=== PATIENT | male | born 1945 | race Caucasian/White ===

== ENCOUNTER → 2017-06-07 06:32 | Outpatient (CLI) | payer MEDICARE, OTHER, SELFPAY ==
--- NOTE | 2017-06-07 12:20 | STRESSREP ---
Stress Test Report Pharmacologic myocardial perfusion stress test. 72-year-old man with a history of chest pain. Medications lisinopril amlodipine atenolol simvastatin. Stress protocol: Resting EKG demonstrates normal sinus rhythm with a rate of 72 bpm normal intervals and noted resting blood pressure is 140/76 mmHg. 0.4 mg regadenoson infused per usual protocol followed Intravenous saline flush injection. Continuous EKG monitoring was performed. The maximum heart rate attained was 97 bpm which was 65% of the maximum predicted work heart rate. The maximum workload was 1 metabolic equivalent. At rest there were no ST or T-wave changes noted suggest abnormal flow reserve at peak infusion no ST or T-wave changes were noted suggest abnormal flow reserve. The resting blood pressure is 140/76 with a final and peak blood pressure 158/70 mmHg. Myocardial perfusion protocol. 14.9 mCi of technetium 99m sestamibi was injected at rest. 0.4 mg regadenoson was infused per usual protocol. Peak infusion 44.6 mCi of technetium 99m sestamibi was injected. Stress images were obtained. Stress and rest images were reconstructed in the short axis vertical long and horizontal long axis. Gated images were also obtained. Perfusion SPECT analysis: Review of the stress images demonstrate normal perfusion in all areas of the myocardium. The resting images similarly demonstrate normal perfusion in all areas of the myocardium. No areas of reversibility are noted suggest ischemia no previous infarct is noted. Gated SPECT analysis. Next The gated ejection fraction is noted with 58% with no wall motion abnormalities present. Conclusion: Normal pharmacologic myocardial perfusion stress test with no evidence of ischemia. Preserved ejection fraction.
== END ==
PROVIDERS: Family Provider Family Medicine; PCP Family Medicine; Visit Provider Nurse Practitioner Family
DX: R07.9 Chest pain, unspecified (principal)
CPT/HCPCS: 78452; 93017; A9500; A4216; J2785

== ENCOUNTER → 2017-11-08 09:38 | Outpatient (CLI) | payer MEDICARE, OTHER, SELFPAY ==
--- NOTE | 2017-11-08 09:39 | ECHOCS_ITS ---
Reason For Study: Aortic Stenosis Procedure This was a 2D Doppler, Color Flow transthoracic echocardiogram. The study was technically difficult. Exam performed in department. Left Ventricle Moderate concentric left ventricular hypertrophy. The estimated ejection fraction is 65 %. No regional wall motion abnormalities noted. Right Ventricle Normal size and thickness. Normal systolic function. Atria The left atrium is severely enlarged. Normal right atrium. Normal atrial septum. Mitral Valve The mitral valve is structurally normal. No prolapse or stenosis seen. Aortic Valve Trisinus/trileaflet aortic valve. Severe diffuse aortic valve thickening. Moderate focal aortic valve thickening. Severe restriction of the aortic valve. Severe aortic stenosis. Peak aortic valve gradient 79 mmHg. Mean aortic valve gradient 32 mmHg. Calculated aortic valve area (continuity equation) is 0.91 cm2. Pulmonic Valve Normal pulmonic valve. Great Vessels Normal aortic root. Mild atherosclerosis of the aortic arch. Normal inferior vena cava. Inferior vena cava collapse with sniff. Pericardium/Pleural No pericardial effusion. Medication 22 gauge I.V. with prn adaptor inserted into right arm. Diluted definity 3ml given slow IV push to enhance endocardial definition. MMode/2D Measurements & Calculations LVIDd: 4.9 cm IVSd: 1.4 cm LVOT diam: 2.4 cm LVIDs: 2.9 cm LVPWd: 1.2 cm LVOT area: 4.5 cm2 FS: 41.8 % Ao root diam: 3.7 cm LAV(MOD-bp): 82.2 ml Aortic Valve Planimetry: 1.0 cm2 LAV(MOD-bp) Indexed: 31.9 ml/m2 LAV(MOD-sp2): 68.3 ml LAV(MOD-sp4): 95.6 ml LA A4 area: 26.7 cm2 Time Measurements MV dec time: 0.26 sec Doppler Measurements & Calculations MV E max shreyas: 70.3 cm/sec Lat Peak E' Shreyas: 9.8 cm/sec Med Peak E' Shreyas: 7.6 cm/sec MV A max shreyas: 84.0 cm/sec E/E' lat: 7.2 E/E' med: 9.3 MV E/A: 0.84 MV V2 max: 101.1 cm/sec MV P1/2t max shreyas: 99.2 cm/sec Ao V2 max: 443.7 cm/sec MV max P.1 mmHg MV P1/2t: 58.5 msec Ao max P.7 mmHg MV V2 mean: 53.4 cm/sec MV dec slope: 496.3 cm/sec2 Ao V2 mean: 246.0 cm/sec MV mean P.4 mmHg MVA(P1/2t): 3.8 cm2 Ao mean P.5 mmHg MV V2 VTI: 28.0 cm Ao V2 VTI: 99.1 cm MVA(VTI): 3.7 cm2 CHRISTOFER(I,D): 1.0 cm2 CHRISTOFER(V,D): 0.91 cm2 LV V1 max: 89.3 cm/sec SV(LVOT): 102.2 ml PA V2 max: 126.2 cm/sec LV V1 max P.2 mmHg LV V1 mean P.9 mmHg LV V1 mean: 66.1 cm/sec LV V1 VTI: 22.7 cm Interpretation Summary Moderate concentric left ventricular hypertrophy. The estimated ejection fraction is 65 %. The left atrium is severely enlarged. Severe restriction of the aortic valve. Peak aortic valve gradient 79 mmHg. Mean aortic valve gradient 32 mmHg. Calculated aortic valve area (continuity equation) is 0.91 cm2. Comapred to echo report dated 10/12/2016, LV function has remained the same, but aortic stenosis is now severe. Pt will need DOUGLAS and left and right heart cath for AVR. The study was technically difficult. Contrast injection was performed. Ordering Physician: Leonardo Dial Referring Physician: Leonardo Dial Performed By: Usman Guevara RCS
== END ==
PROVIDERS: Family Provider Family Medicine; PCP Family Medicine; Visit Provider Internal Medicine Cardiovascular Disease
DX: G47.33 Obstructive sleep apnea (adult) (pediatric) (principal)
CPT/HCPCS: 93306; Q9957; A4216; C8929

== ENCOUNTER → 2017-11-12 08:32 | Outpatient (CLI) | payer MEDICARE, OTHER, SELFPAY ==
--- NOTE | 2017-11-12 08:35 | RAD_ITS ---
STUDY: X-RAY CHEST REASON FOR EXAM: Male, 72 years old. Shortness of breath on exertion. Pre heart catheter. TECHNIQUE: PA and lateral views of the chest. COMPARISON: None. FINDINGS: There is hyperinflation of the lungs, which may reflect obstructive lung disease. There is no demonstrated pleural abnormality. Normal size heart. Normal mediastinum and nicholas. Normal visualized pulmonary arteries. There is atherosclerotic calcification of the aortic arch. There are diffuse degenerative changes of the visualized spine. There is a prominent thoracolumbar kyphosis, and mild reversal of the mid thoracic kyphosis. Normal visualized ribs, clavicles, and shoulders. There is no demonstrated abnormality of the visualized soft tissue structures of the upper abdomen. RAD/Chest PA and Lateral IMPRESSION: Hyperexpanded, suggesting obstructive pulmonary disease. No acute infiltrate or CHF. Electronically Signed: Trino Durbin MD at 19:07 EDT , Service support ,
[2017-11-12 09:19] LABS: Absolute Lymphocyte Count 2.11 X10^3/ul (0.83-4.51); Absolute Neutrophil Count 8.2 X10^3/uL (2.0-7.7); Basophil# 0.03 X10^3/uL; Basophil% 0.3 % (0-1); Eosinophil# 0.12 X10^3/uL; Eosinophils% 1.1 % (0-5); Hematocrit 43.2 % (40-54); Lymphocyte # 2.11 X10^3/ul (4.0); Lymphocyte % 18.6 % (19-41); Mean Corp Hgb Conc 32.4 g/gl (32-36); Mean Corpuscular Volume 92.5 fL (80-94); Mean Platelet Vol. 10.6 fl (6.2-12.0); Monocyte# 0.87 X10^3/uL; Monocyte% 7.7 % (0-10); Neutrophil # 8.21 X10^3/uL (2.7-7.7); Platelet Count 242 K/mm3 (150-450); RBC Distribution Width CV 15.3 % (11.6-14.6); RBC Distribution Width SD 50.5 fl (35.1-43.9); Red Blood Count 4.67 M/mm3 (4.6-6.2); White Blood Count 11.4 K/mm3 (4.4-11.0)
[2017-11-12 09:25] LABS: POSITIVE COUNT NO; POSITIVE DIFFERENTIAL NO; POSITIVE MORPHOLOGY NO
[2017-11-12 09:28] LABS: International Normalized Ratio 1.1; Prothrombin Time (Protime)PT. 14.3 SECONDS (11.7-14.9)
[2017-11-12 09:29] LABS: Partial Thromboplast Time 42.8 Seconds (24.1-36.2)
[2017-11-12 09:52] LABS: Anion Gap 9 (5-15); BUN 19 mg/dL (7-18); BUN/Creat Ratio 16.5 RATIO (10-20); Calcium,Total 9.6 mg/dL (8.5-10.1); Chloride 104 mmol/L (98-107); Creatinine, Serum 1.15 mg/dL (0.70-1.30); EST Glomerular Filtration Rate 66 mL/min (>60); Est Glom Filt Rate - Afr Amer 80 mL/min (>60); Glucose 121 mg/dL (74-106); Potassium 4.4 mmol/L (3.5-5.1); Sodium Level 140 mmol/L (136-145)
== END ==
PROVIDERS: Family Provider Family Medicine; PCP Family Medicine; Visit Provider Internal Medicine Cardiovascular Disease
DX: E03.9 Hypothyroidism, unspecified (principal); E78.5 Hyperlipidemia, unspecified; E11.65 Type 2 diabetes mellitus with hyperglycemia; E66.9 Obesity, unspecified; I10 Essential (primary) hypertension; I35.0 Nonrheumatic aortic (valve) stenosis; G47.33 Obstructive sleep apnea (adult) (pediatric)
CPT/HCPCS: 36415; 71046; 80048; 85025; 85610; 85730

== ENCOUNTER 2017-11-27 13:59 | Outpatient (RCR) | payer MEDICARE, OTHER, SELFPAY | END 2017-12-10 23:59 | LOC: DC 13:59 | PROVIDERS: Family Provider Family Medicine; PCP Family Medicine; Visit Provider Family Medicine | DX: Z71.3 Dietary counseling and surveillance (principal) | CPT/HCPCS: G0108 ==

== ENCOUNTER → 2017-11-29 08:39 | Outpatient (CLI) | payer MEDICARE, OTHER, SELFPAY ==
[2017-11-28 09:17] VITALS: BMI 42.8
--- NOTE | 2017-11-29 08:41 | ECHOTEE_ITS ---
Reason For Study: VALVE REPLACEMENT Medication Performed a rapid injection of agitated mix of 9 cc saline and 1cc air to assess for atrial septal defect. DOUGLAS probe passed without difficulty. No complications were noted. [id number] gargled and swallowed. Cetacaine Topical [place] given X2 orally. Versed 2 mg given slow IVP. Fentanyl 25 mcg given slow IVP. Negative bubble study. Left Ventricle Mild concentric left ventricular hypertrophy. The estimated ejection fraction is 65 %. No regional wall motion abnormalities noted. Right Ventricle Normal size and thickness. The right ventricular wall motion is normal. Atria Normal atrial septum. Bubble contrast study negative for right to left interatrial shunt. Normal left atrium. No thrombus is detected in the left atrial appendage. Normal right atrium. Mitral Valve The mitral valve is structurally normal. No prolapse or stenosis seen. Trivial mitral valve insufficiency. Tricuspid Valve Normal tricuspid valve. Trivial tricuspid valve insufficiency. Right ventricular systolic pressure estimated to be 18 mmHg. Aortic Valve Trisinus/trileaflet aortic valve. Moderate diffuse aortic valve thickening. Moderate focal aortic valve calcification. Moderate restriction of the aortic valve. Moderate aortic stenosis. Peak aortic valve gradient 60 mmHg. Mean aortic valve gradient 33 mmHg. Calculated aortic valve area (continuity equation) is 1.2 cm2. Pulmonic Valve Normal pulmonic valve. Vessels Normal aortic root. Mild atherosclerosis of the aortic arch. The pulmonary artery is normal size. Pulmonary venous flow normal. Doppler Measurements & Calculations MV V2 max: 95.3 cm/sec Ao V2 max: 386.2 cm/sec MV max P.7 mmHg Ao V2 mean: 267.6 cm/sec MV V2 mean: 58.1 cm/sec Ao V2 VTI: 92.6 cm MV mean P.6 mmHg MV V2 VTI: 24.8 cm Interpretation Summary Mild concentric left ventricular hypertrophy. The estimated ejection fraction is 65 %. Bubble contrast study negative for right to left interatrial shunt. Trivial tricuspid valve insufficiency. Right ventricular systolic pressure estimated to be 18 mmHg. Trivial mitral valve insufficiency. Moderate restriction of the aortic valve. Immobile right coronary cusp. Moderate to severe aortic stenosis. Peak aortic valve gradient 60 mmHg. Mean aortic valve gradient 33 mmHg. Calculated aortic valve area (continuity equation) is 1.2 cm2 by planimetery. Ordering Physician: Stormy Montaño/Leonardo Dial Referring Physician: ROBB SANCHES Performed By: Alka Calvert RDCS, RVT ??? Reason For Study: VALVE REPLACEMENT Interpretation Summary Mild concentric left ventricular hypertrophy. The estimated ejection fraction is 65 %. Bubble contrast study negative for right to left interatrial shunt. Trivial tricuspid valve insufficiency. Right ventricular systolic pressure estimated to be 18 mmHg. Trivial mitral valve insufficiency. Moderate restriction of the aortic valve. Immobile right coronary cusp. Moderate to severe aortic stenosis. Peak aortic valve gradient 60 mmHg. Mean aortic valve gradient 33 mmHg. Calculated aortic valve area (continuity equation) is 1.2 cm2 by planimetery. Ordering Physician: Stormy Montaño/Leonardo Dial Referring Physician: ROBB SANCHES Performed By: Alka Calvert RDCS, RVT
--- NOTE | 2017-11-29 11:48 | CL.D_ITS ---
Patient Name: DMITRY SILVA Study Date: 11/29/2017 Performing: Leonardo Dial MD Ht: 72.04 inches 183 cm : 1945 Wt: 315.26 lbs 143 kg Age: 72 Gender: male BSA: 2.59 PROCEDURE(S) PERFORMED AO09-BWA/LHC/COR/LV CLINICAL PROFILE AND INDICATIONS Indications: Valvular Disease, Suspected CAD Heart Failure: None Stress/Imaging Stress/Image Study Performed: No Angina Classification Anginal Classification w/in 2 Weeks: No symptoms CAD Presentations: Other: Dyspnea on exertion, aortic stenosis. Comorbidities/Risk Factors: Hypertension Dyslipidemia Diabetes Mellitus: Diabetes Therapy: Oral CONCLUSIONS Normal coronary arteries Normal Left Ventricular systolic function Normal LV size, wall motion,and systolic function Aortic Valve Stenosis- Moderate Right heart pressures - Normal RECOMMENDATIONS Surgery consult for aortic valvular disease of TAVR vs open replacement. Pt has evidence of severe aortic stenosis by transthoracic echo, and positional dizziness as well as dyspnea on exertion and increasing fatigue. Pt has associated peripheral neuropathy and back pain edmond taylor complete evaluation somewhat problematic. DESCRIPTION OF PROCEDURE The patient arrived to the procedure lab. The risks and benefits of the procedure as well as a full d escription of our services here and current unavailability of surgical backup were fully explained to the patient and/or their significant other prior to the catheterization. The Timeout was completed, verifying the correct patient and procedure. The patient's procedural site was prepped and draped in the usual fashion. Local anesthetic was given subcutaneously to right groin region with Lidocaine 2%. Using a modified Seldinger technique, arterial access was obtained via the right femoral artery, a 4 Fr sheath was inserted Venous access was obtained via the right femoral vein, a 7Fr sheath was insert ed. A 7Fr thermal dilution catheter was inserted and right heart pressures were recorded, it was then advanced to PA position for cardiac outputs. Thermal dilution cardiac outputs were then recorded. O2 saturations were then obtained. Left Ventriculography was performed in MORAN projection using a 4 Fr. Pigtail catheter. Simultaneous pressures were then recorded. The Thermal dilution catheter was then r emoved. LV to AO pullback pressures were then recorded. Left Coronary Artery selective angiography wa s performed in multiple views using a 4 Fr. JL5 catheter. Left Coronary Artery selective angiography was performed in multiple views using a 4 Fr. JL4 catheter. Right Coronary Artery selective angiograp hy was then performed in multiple views using a 4 Fr. 3DRC catheter.The arterial sheath was pulled an d manual compression applied until hemostasis is achieved. CORONARY ANGIOGRAPHY DOMINANCE: Left Dominant LEFT HEART ASSESSMENT Left Ventricular Ejection Fraction: by LV Gram 65 % Normal LV wall motion Normal Left Ventricular systolic function Normal Left Ventricular systolic function Normal Left Ventricular End Diastolic Pressure RIGHT HEART ASSESSMENT Thermal CO: 7.5 Thermal CI: 2.9 Van CO: 7.24 Van CI: 2.8 PW: 12/9 8 PA: 29/4 18 RV: 33/0 6 RA: 6/5 2 PVR: 107 SVR: 779 Aortic Valve Area: 1.50 Aortic Valve Index: 0.58 Aortic Valve Mean Gradient: 28.3 LEFT MAIN: Angiographically normal LEFT ANTERIOR DECENDING ARTERY: Angiographically normal CIRCUMFLEX ARTERY: Angiographically normal RIGHT CORONARY ARTERY: Angiographically normal VALVE FINDINGS: Aortic Valve Stenosis - moderate by gradient, CHRISTOFER=1.50 cm2 COMPLICATIONS No Complications PROCEDURE MEDICATIONS Versed 2 mg IV Fentanyl 25 mcg IV Oxygen: 2 L/min via nasal cannula SUMMARY OF HEMODYNAMIC DATA Time AIR REST ECG 09:04:09 ECG 10:58:36 RA 6/5 (2) SV 11:12:24 RA 6/4 (3) 11:12:41 RV 33/0, 6 11:13:17 PW /9 (8) PV 11:13:50 PA 29/4 (18) PA 11:14:04 LV 158/-12, 10 11:20:41 LV 157/-13, 9 11:20:49 LV 160/-10, 13 11:21:10 PW 19/14 (11) 11:21:10 LV 161/-13, 9 11:21:36 PW 6/6 (4) 11:21:36 LV 161/-9, 12 11:22:02 RV 25/-2, 4 11:22:02 LV 156/-7, 10 11:23:22 LV 156/-8, 12 11:23:29 LVp 153/-9, 11 11:23:35 AOp 112/56 (81) 11:23:40 AO 92/59 (75) SA 11:25:48 Valve Area (c P-P/ms Time AIR REST Aortic 1.50 28.3 mn/322 ms 41.0 pk/322 ms 11:23:35 Type SV CO (l/m) CI (l/m/ HR Time AIR REST Thermal 104.20 7.50 2.90 72 09:04:09 Van 100.60 7.24 2.80 72 09:04:09 Label % O2 Pres/Loc Time AIR REST AO 93 PV 11:29:26 PA 68 PA 11:29:33 Signed By Leonardo Dial MD On 11/29/2017 11:47:49 Leonardo Dial MD
[2017-11-29 12:00] LABS: Base Excess 2 mmol/L (-2 to +2); Bicarbonate 26.2 mmol/L (22-26); Blood Gas Specimen Type ART; PO2 65 mmHG (75-100); SO2 93 % (95-99); Total Carbon Dioxide 27 mmol/L; pCO2 41.1 mmHg (35-45); pH 7.41 (7.35-7.45)
[2017-11-29 12:00] LABS: Blood Gas Specimen Type VEN; VBG BASE EXCESS 2 mmol/L (-1.0-3.5); VBG Bicarbonate 27 mmol/L (22-26); VBG Oxygen Content 28 mmol/L (23-33); VBG PO2 36 mmHg (25-40); VBG SO2 67 % (50-70); VBG pCO2 44.5 mmHg (41-51); VBG pH 7.39 (7.32-7.42)
[2017-11-29 12:00] LABS: Blood Gas Specimen Type VEN; VBG BASE EXCESS 2 mmol/L (-1.0-3.5); VBG Bicarbonate 27 mmol/L (22-26); VBG Oxygen Content 28 mmol/L (23-33); VBG PO2 35 mmHg (25-40); VBG SO2 68 % (50-70); VBG pCO2 41.9 mmHg (41-51); VBG pH 7.42 (7.32-7.42)
== END ==
PROVIDERS: Family Provider Family Medicine; PCP Family Medicine; Visit Provider Internal Medicine Cardiovascular Disease
DX: I35.8 Other nonrheumatic aortic valve disorders (principal); I10 Essential (primary) hypertension; E78.5 Hyperlipidemia, unspecified; E11.9 Type 2 diabetes mellitus without complications; Z95.2 Presence of prosthetic heart valve; Z79.84 Long term (current) use of oral hypoglycemic drugs; I51.7 Cardiomegaly
CPT/HCPCS: 82803; 93312; 93320; 93325; 93460; 99152; 99153; J7040; Q9967; A4216; C1751; C1769; C1894

== ENCOUNTER 2017-12-07 09:01 | Emergency (ER) | payer MEDICARE, OTHER, SELFPAY ==
[2017-12-07 09:02] VITALS: BP 148/83; PULSE 64; RESP 18; TEMP 36.6; O2SAT 95; BMI 42.5
--- NOTE | 2017-12-07 09:05 | EKG12_ITS ---
Test Reason : DIZZINESS Blood Pressure : / mmHG Vent. Rate : 063 BPM Atrial Rate : 063 BPM P-R Int : 242 ms QRS Dur : 090 ms QT Int : 392 ms P-R-T Axes : -15 042 038 degrees QTc Int : 401 ms Sinus rhythm with 1st degree A-V block Otherwise normal ECG Confirmed by CAYLA OLIVERA, MARY ([id number]), technical writer and editor ABBI SHORE ([id number]) on 12/10/2017 3:06:08 PM Referred By: LIDIA Confirmed By:MARY KULKARNI MD
--- NOTE | 2017-12-07 09:18 | CT_ITS ---
STUDY: CT BRAIN WITHOUT CONTRAST REASON FOR EXAM: Male, 72 years old. Dizziness RADIATION DOSAGE (If Supplied By Facility): CTDIvol = ( 44.99 ) mGy, DLP = ( 829.85 ) mGycm TECHNIQUE: Transaxial CT imaging of the brain was performed without administration of intravenous contrast material. Sagittal and coronal images are reformatted. Individualized dose optimization techniques were used for this CT. COMPARISON: None. FINDINGS: Normal soft tissue structures. Normal calvarium. Normal size ventricles and extra-axial spaces for the patient's age. There are areas of decreased attenuation within the white matter tracts of the supratentorial brain, consistent with microvascular disease changes. Normal basal ganglia and thalami. Normal brainstem. Normal cerebellum. There is no intracranial hemorrhage. There are no findings of an acute ischemic infarction. Normal visualized paranasal sinuses. CT/Brain/Head without Contrast IMPRESSION: Chronic involutional changes of the brain. No acute intracranial process. Electronically Signed: Micky Paiz DO at 10:29 EDT , Service support ,
--- NOTE | 2017-12-07 09:19 | RAD_ITS ---
STUDY: X-RAY CHEST REASON FOR EXAM: Male, 72 years old. Dizziness TECHNIQUE: Single AP portable view of the chest. COMPARISON: 11/12/2017. FINDINGS: The lungs are clear and expanded. There is no demonstrated pleural abnormality. Normal size heart. Normal mediastinum and nicholas. Normal visualized pulmonary arteries. Normal visualized aortic arch and descending thoracic aorta. Normal visualized thoracic spine. Normal visualized ribs, clavicles, and shoulders. There is no demonstrated abnormality of the visualized soft tissue structures of the upper abdomen. RAD/Chest 1 View IMPRESSION: No acute cardiopulmonary disease. Electronically Signed: Micky Paiz DO at 9:41 EDT , Service support ,
--- NOTE | 2017-12-07 09:20 | ED.VISSUMM ---
- ER Visit Summary Date of Service: 12/07/17 Chief Complaint: [] Lightheaded dizzy head spinning sensation buzzing History of Present Illness: The patient is a 72 M [] history of diabetes aortic stenosis reports that he has had extensive workup for his cardiac valve 1 week ago had cardiac catheter that showed normal coronary artery disease but he was told his cardiac valve was such that he should be referred to see a cardiac surgeon Cortney millan that appointment is later on the month. He indicates for the last 2 days he has had a buzzing and spinning sensation to his head that will not go away, it is associated with some movement he has had no fever no cough headache chest pain no 6 paresthesias no abdominal pain normal bowel bladder habits. His right groin cath site is intact without pain, he does indicate his had decreased p.o. intake recently because he is trying to modify his diet but he has had normal bowel bladder habits, he also indicates he recently started on on ompyrazole by ENT, sounds like reflux and that really has not changed and is concerned the on Nagi also contribute to his dizziness, in addition he thought maybe [place] which she is taking for back pain was contributing so he stopped the [place] with no improvement He has no history of stroke [place] or neurologic disorder Patient has no cardiovascular symptoms of any kind no chest pain fever cough orthopnea or PND Physical Examination: [] He is awake and alert he is in no distress sitting at the side of the bed moving his head left and right does not contribute necessarily to any sense of dizziness or spinning no nystagmus his HEENT exam is unremarkable speech is clear to understand his neck is supple the lungs are clear the heart tones were a grade 3 out of 6 murmur the abdomen is obese but soft nontender the right groin cath site is intact without pain or bleeding or fullness his backs unremarkable he is able to stand and walk he has no ataxia or nystagmus with movement or walking but he feels as if in his head is buzzing, he has no symptoms related finger to nose bilaterally and again his speech is clear and easy to understand his NIH is 0 Test Results: [] Emergency Department Course and Treatment: [] Given his age and his concerns and his history he did modify his diet recently he has had decreased p.o. intake really started on on ompyrazole was told his would require cardiac valve replacement IV fluids screening labs head CT Patient's physical exam is unchanged his NIH remains 0, he is up walking in the emergency room no difficulty, his labs EKG head CT are all generally unremarkable please see those reports we did discuss potential MRI in the emergency department MRI techs are not available discussed all the above the patient discussed the concept of a subclinical stroke or other process discussed inpatient versus outpatient management he does not wish to be admitted he wants to go home, we spoke with Dr. Vega his manager of sales communication specialist, spoke with Dr. barber his primary care for attending physician discussed all the above with them they agree the patient be discharged home to follow-up in the office with Dr. Barber the next few days return for change in symptoms and continue all his medications including his aspirin And the patient feels well he is walking around the ED with no findings or abnormalities and he wants to go home he prefers outpatient management Treatment Plan: [] Disposition: [] Home stable Impression: [] Dizziness buzzing sensation etiology unclear history of aortic stenosis diabetes high cholesterol hypertension This note was generated with Uskape dictation software. It may contain incorrect words, spelling, and punctuation that were not noted in review of the chart prior to signing ED Disposition - Plan for ED Patient: Chief Complaint: Dizziness Referrals: Diony Barber III, MD [Primary Care Provider] -
--- NOTE | 2017-12-07 09:23 | ED.DCSUM_ITS ---
- ER Visit Summary Date of Service: 12/07/17 Chief Complaint: [] Lightheaded dizzy head spinning sensation buzzing History of Present Illness: The patient is a 72 M [] history of diabetes aortic stenosis reports that he has had extensive workup for his cardiac valve 1 week ago had cardiac catheter that showed normal coronary artery disease but he was told his cardiac valve was such that he should be referred to see a cardiac surgeon Cortney millan that appointment is later on the month. He indicates for the last 2 days he has had a buzzing and spinning sensation to his head that will not go away, it is associated with some movement he has had no fever no cough headache chest pain no 6 paresthesias no abdominal pain normal bowel bladder habits. His right groin cath site is intact without pain, he does indicate his had decreased p.o. intake recently because he is trying to modify his diet but he has had normal bowel bladder habits, he also indicates he recently started on on ompyrazole by ENT, sounds like reflux and that really has not changed and is concerned the on [place] also contribute to his dizziness, in addition he thought maybe [place] which she is taking for back pain was contributing so he stopped the [place] with no improvement He has no history of stroke [place] or neurologic disorder Patient has no cardiovascular symptoms of any kind no chest pain fever cough orthopnea or PND Physical Examination: [] He is awake and alert he is in no distress sitting at the side of the bed moving his head left and right does not contribute necessarily to any sense of dizziness or spinning no nystagmus his HEENT exam is unremarkable speech is clear to understand his neck is supple the lungs are clear the heart tones were a grade 3 out of 6 murmur the abdomen is obese but soft nontender the right groin cath site is intact without pain or bleeding or fullness his backs unremarkable he is able to stand and walk he has no ataxia or nystagmus with movement or walking but he feels as if in his head is buzzing , he has no symptoms related finger to nose bilaterally and again his speech is clear and easy to understand his NIH is 0 Test Results: [] Emergency Department Course and Treatment: [] Given his age and his concerns and his history he did modify his diet recently he has had decreased p.o. intake really started on on ompyrazole was told his would require cardiac valve replacement IV fluids screening labs head CT Patient's physical exam is unchanged his NIH remains 0, he is up walking in the emergency room no difficulty, his labs EKG head CT are all generally unremarkable please see those reports we did discuss potential MRI in the emergency department MRI techs are not available discussed all the above the patient discussed the concept of a subclinical stroke or other process discussed inpatient versus outpatient management he does not wish to be admitted he wants to go home, we spoke with Dr. Vega his carpenters supervisor station chief, spoke with Dr. barber his primary care for attending physician discussed all the above with them they agree the patient be discharged home to follow-up in the office with Dr. Barber the next few days return for change in symptoms and continue all his medications including his aspirin And the patient feels well he is walking around the ED with no findings or abnormalities and he wants to go home he prefers outpatient management Treatment Plan: [] Disposition: [] Home stable Impression: [] Dizziness buzzing sensation etiology unclear history of aortic stenosis diabetes high cholesterol hypertension This note was generated with PowerCard dictation software. It may contain incorrect words, spelling, and punctuation that were not noted in review of the chart prior to signing ED Disposition - Plan for ED Patient: Chief Complaint: Dizziness Referrals: Diony Barber III, MD [Primary Care Provider] -
[2017-12-07 09:38] VITALS: BP 123/77; PULSE 64; RESP 17; O2SAT 96
[2017-12-07 09:50] LABS: Absolute Lymphocyte Count 1.54 X10^3/ul (0.83-4.51); Absolute Neutrophil Count 5.1 X10^3/uL (2.0-7.7); Basophil# 0.02 X10^3/uL; Basophil% 0.3 % (0-1); Eosinophil# 0.14 X10^3/uL; Eosinophils% 1.9 % (0-5); Hematocrit 41.4 % (40-54); Hemoglobin 13.3 g/dl (13.0-16.5); Lymphocyte # 1.54 X10^3/ul (4.0); Lymphocyte % 20.8 % (19-41); Mean Corp Hgb Conc 32.1 g/gl (32-36); Mean Corpuscular Volume 93.2 fL (80-94); Mean Platelet Vol. 10.5 fl (6.2-12.0); Monocyte# 0.61 X10^3/uL; Monocyte% 8.2 % (0-10); Neutrophil # 5.07 X10^3/uL (2.7-7.7); Neutrophil % 68.3 % (47-70); Platelet Count 226 K/mm3 (150-450); RBC Distribution Width CV 15.6 % (11.6-14.6); RBC Distribution Width SD 51.7 fl (35.1-43.9); Red Blood Count 4.44 M/mm3 (4.6-6.2); White Blood Count 7.4 K/mm3 (4.4-11.0)
[2017-12-07 10:06] LABS: Anion Gap 5 (5-15); BUN 23 mg/dL (7-18); BUN/Creat Ratio 17.8 RATIO (10-20); Calcium,Total 9.7 mg/dL (8.5-10.1); Chloride 104 mmol/L (98-107); Creatinine, Serum 1.29 mg/dL (0.70-1.30); EST Glomerular Filtration Rate 58 mL/min (>60); Est Glom Filt Rate - Afr Amer 70 mL/min (>60); Estimated Creatinine Clearance 55.98 ml/min; Glucose 112 mg/dL (74-106); Sodium Level 138 mmol/L (136-145)
[2017-12-07 10:21] LABS: POSITIVE COUNT NO; POSITIVE DIFFERENTIAL NO; POSITIVE MORPHOLOGY NO
--- NOTE | 2017-12-07 11:00 | ED.DEP ---
ED Disposition - Plan for ED Patient: Chief Complaint: Dizziness Instructions: ED Dizziness [facility] Referrals: Diony Barber III, MD [Primary Care Provider] -
[2017-12-07 11:19] VITALS: BP 112/75; PULSE 68; RESP 15; O2SAT 98
== END 2017-12-07 11:20 | disposition home or self-care (01) ==
LOC: ED 09:37
PROVIDERS: Emergency Provider Emergency Medicine; Family Provider Family Medicine; PCP Family Medicine
DX: R42 Dizziness and giddiness (principal); I35.0 Nonrheumatic aortic (valve) stenosis; E11.9 Type 2 diabetes mellitus without complications; E78.00 Pure hypercholesterolemia, unspecified; I10 Essential (primary) hypertension
CPT/HCPCS: 70450; 71045; 80048; 84484; 85025; 93005; 96360; 96361; 99283; J7040

== ENCOUNTER → 2018-01-27 10:38 | Outpatient (CLI) | payer MEDICARE, OTHER, SELFPAY ==
[2018-01-27 11:45] LABS: Amphetamine Urine VISTA NEGATIVE (<1000 ng/mL); Barbiturate Urine VISTA NEGATIVE (< 200 ng/mL); Benzodiazepine Urine VISTA NEGATIVE (< 200 ng/mL); Cocaine Urine VISTA NEGATIVE (< 300 ng/mL); Ecstacy Urine VISTA POSITIVE (< 500 ng/mL); Methadone Urine VISTA NEGATIVE (< 300 ng/mL); PCP Urine VISTA NEGATIVE (< 25 ng/mL); THC Urine VISTA NEGATIVE (< 50 ng/mL); Vista UDS pH Range 6
== END ==
PROVIDERS: Family Provider Family Medicine; PCP Family Medicine; Visit Provider Anesthesiology Pain Medicine
DX: F11.20 Opioid dependence, uncomplicated (principal)
CPT/HCPCS: 80307

== ENCOUNTER → 2018-02-24 09:47 | Outpatient (CLI) | payer MEDICARE, OTHER, SELFPAY ==
--- NOTE | 2018-02-24 09:53 | RAD_ITS ---
STUDY: X-RAY - RIGHT KNEE REASON FOR EXAM: Male, 73 years old. Knee pain. TECHNIQUE: 2 view(s) of the knee. COMPARISON: None. FINDINGS: Normal visualized distal femur. Normal visualized proximal tibia and fibula. Normal proximal tibiofibular articulation. There is mild degenerative arthrosis of the medial femorotibial compartment. There is mild degenerative arthrosis of the lateral femorotibial compartment. Normal patellofemoral articulation. The soft tissue structures are unremarkable. RAD/Knee 1 or 2 Views IMPRESSION: Degenerative changes. Electronically Signed: Azalia Rodriguez MD at 23:26 EDT Tel , Service support ,
--- NOTE | 2018-02-24 09:53 | RAD_ITS ---
STUDY: X-RAY - LEFT KNEE REASON FOR EXAM: Male, 73 years old. Knee pain. TECHNIQUE: 2 view(s) of the knee. COMPARISON: None. FINDINGS: Normal visualized distal femur. Normal visualized proximal tibia and fibula. Normal proximal tibiofibular articulation. There is mild degenerative arthrosis of the medial femorotibial compartment. Normal lateral femorotibial compartment. There is mild degenerative arthrosis of the patellofemoral articulation. The soft tissue structures are unremarkable. RAD/Knee 1 or 2 Views IMPRESSION: Degenerative changes. Electronically Signed: Azalia Rodriguez MD at 23:27 EDT Tel , Service support ,
== END ==
PROVIDERS: Family Provider Family Medicine; PCP Family Medicine; Referring Provider Anesthesiology Pain Medicine; Visit Provider Anesthesiology Pain Medicine
DX: M25.562 Pain in left knee (principal); M25.561 Pain in right knee
CPT/HCPCS: 73560

== ENCOUNTER → 2018-09-11 | Outpatient (CLI) | payer MEDICARE, OTHER, SELFPAY ==
[2018-07-04 09:39] VITALS: BMI 45.7
--- NOTE | 2018-09-11 14:08 | VDLE_ITS ---
Reason For Study: edema RIGHT LEFT GSV is normal. GSV is normal. CFV is compressible, spontaneous, phasic, CFV is compressible, spontaneous, phasic, competent and demonstrates normal competent, and demonstrates normal augmentation. augmentation. FV is compressible, spontaneous, phasic, FV is compressible, spontaneous, phasic, competent and demonstrates normal competent and demonstrates normal augmentation. augmentation. POP V is compressible, spontaneous, phasic, POP V is compressible, spontaneous, phasic, competent and demonstrates normal competent and demonstrates normal augmentation. augmentation. T/P Trunk is compressible. T/P Trunk is compressible. PTV is compressible. PTV is compressible. RT PerV is compressible. LT PerV is compressible. Procedure Exam performed in department. The exam was diagnostic. A preliminary report was called and/or faxed to H[facility]. Interpretation Summary Deep veins of the lower extremities are bilaterally patent and compressible segmentally. There is no evidence of deep vein thrombosis on either side. Valvular competence appears intact within the proximal deep venous systems bilaterally. The greater saphenous veins appear bilaterally patent and compressible segmentally. Ordering Physician: YAJAIRA Caro Performed By: Moiz Gonzales RVT
== END | disposition home or self-care (01) ==
LOC: CVS 14:02
PROVIDERS: Family Provider Family Medicine; PCP Family Medicine; Referring Provider Nurse Practitioner Family; Visit Provider Nurse Practitioner Family
DX: R60.0 Localized edema (principal); R52 Pain, unspecified; Z98.890 Other specified postprocedural states
CPT/HCPCS: 93970

== ENCOUNTER → 2018-09-18 08:52 | Outpatient (CLI) | payer MEDICARE, OTHER, SELFPAY ==
[2018-07-04 09:39] VITALS: BMI 45.7
--- NOTE | 2018-09-18 09:43 | PCM.CR.HP2 ---
CR - History & Physical - General Arrival date:: 09/18/18 Arrival time:: 09:44 Date of Referral:: 09/18/18 Date of CR Evaluation:: 09/18/18 Referring Physician: Dr. Vinny Diggs MD Primary Diagnosis: s/p TAVR - History of Present Cardiac Event Onset Date: Enter Onset Date of cardiac illnesses in Comment field below Current stable Angina Pectoris:: No Acute Myocardial Infarction within 12 months:: No Coronary Artery Bypass Graft:: No Heart valve replacement or repair:: Yes - TAVR 07/28/18 PTCA or coronary stenting:: No Heart or Heart-Lung Transplant:: No Heart Failure EF <35%:: No Type of Symptoms:: murmur Interventions with present event:: TAVR Were there any complications?: no - Medications Home Medications: Ambulatory Orders Medication Instructions Recorded Aspirin E.C. [Ecotrin] 81 mg PO DAILY@0800 06/18/13 Metformin HCl [Glucophage] 500 mg PO BID 06/18/13 Areds 1 tab PO BID 10/18/14 Multivitamins,Ther W-Minerals 1 tab PO DAILY 10/18/14 [Multivitamin With Minerals] Finasteride [Proscar] 5 mg PO DAILY 01/11/15 busPIRone [Buspar] 5 mg PO BID 01/11/15 Cholecalciferol (Vitamin D3) 1,000 unit PO DAILY 12/03/16 [Vitamin D3] Gabapentin [Neurontin] 900 mg PO TIDCM 12/03/16 lisinopril 40 mg tablet 40 mg PO DAILY #90 tab 10/04/17 simvastatin 20 mg tablet 20 mg PO QHS #90 tab 10/24/17 bupropion HCl SR 200 mg tablet,12 200 mg PO QHS tab 11/04/17 hr sustained-release bupropion HCl XL 300 mg 24 hr 300 mg PO QAM 11/04/17 tablet, extended release lactobacillus combination no.11 15 1 cap PO QDAY 11/04/17 billion cell sprinkle capsule hydrochlorothiazide 25 mg tablet 25 mg PO DAILY #90 tab 12/09/17 metoprolol succinate ER 100 mg 100 mg PO DAILY 06/09/18 tablet,extended release 24 hr levothyroxine 150 mcg tablet 150 mcg PO DAILY 06/11/18 Acetaminophen [Shake That Ache] 500 mg PO Q8H PRN PRN 09/18/18 Amlodipine Besylate 7.5 mg PO DAILY 09/18/18 Glimepiride [Amaryl] 1 mg PO DAILY 09/18/18 Hydrocodone/Acetaminophen [Graham 1 each PO BID PRN PRN 09/18/18 5-325 Tablet] Oxygen, Home [Home Oxygen] 2 lpm NASAL QHS 09/18/18 Polyethylene Glycol 3350 [Miralax] 17 gm PO DAILY PRN 09/18/18 - Allergies Allergies/Adverse Reactions: Allergies No Known Allergies Allergy (Verified 06/09/18 11:28) - Sleep Disorder Evaluation Hx of Sleep Apnea: Yes Do you snore loudly (louder than talking or can be heard through closed doors)?: Yes Do you often feel tired/ fatigued/ sleepy during daytime?: Yes Has anyone observed you stop breathing during sleep?: Yes History of Hypertension (for STOP score): Yes STOP Results: Positive Advanced Directives - Advanced Directives Power of Safety Security Officer: Yes Living Will: Yes Advance Directives Information Provided: Yes Advance Directives on File: Yes DNR Order?:: No Past Medical History - Past Medical Illness Medical History: Past Medical History (Last Reviewed 06/09/18 @ 11:03 by Evelyn Mariano) Obstructive sleep apnea (Chronic) G47.33 Nonrheumatic aortic (valve) stenosis (Chronic) I35.0 Obesity (Chronic) E66.9 Hypertension (Chronic) I10 Diabetes type 2, uncontrolled (Chronic) E11.65 Hyperlipidemia (Chronic) E78.5 Hypothyroidism (Chronic) E03.9 Peripheral autonomic neuropathy G90.9 Chest pain (Resolved) R07.9 Postural hypotension I95.1 - Past Surgical History Surgical History: Past Surgical History (Last Reviewed 06/09/18 @ 11:03 by Evelyn Mariano) History of prostate surgery Z98.890 Ankle fracture, right S82.891A Surgical History: - - ankle fracture, prostate surg. 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 Review of Systems - Review of Systems Hints: Right click = Denies ([place]ash). Left click = Reports ([place]) Review of Present Symptoms: Reports: Shortness of Breath at Rest - sometimes needs to take a deep breath., Dizziness/Lightheadedness - at times due to meds he thinks, Appetite - Normal, Appetite - Special Diet, Sleep - Normal - doesn't sleep well at night.. Denies: Shortness of Breath with Exertion, PVD, Operative Discomfort, Angina, Wound Healing, Fatigue, Heart Arrhythmia/Irregularities, Sexual Changes - Pain Is Patient Pain Free?: No Pain Location: back, other - feet neuropathy Pain Level: 10/20 - On Neurontin Previous experience dealing with pain?: has rolater to sit on for pain relief and norco Risk Factor Assessment - Chief Complaint Chief Complaint: s/p TAVR - Vital Signs Pulse Ox: 92 - Pulse Pulse Rate: 76 Pulse Rhythm: Regular - Hypertension How long have you been treated?: 20 years On medication(s)?: yes Blood Pressure Sitting - Right Arm: 140/72 Blood Pressure Sitting - Left Arm: 126/74 - Stress Stress: Recent, Long-standing - Blood Cholesterol/Lipids Total Cholesterol (mg/dL) Goal = less than 200 mg/dL: 167 HDL Cholesterol (mg/dL) Goal = less than 40 mg/dL: 45 LDL Cholesterol (mg/dL) Goal = less than 70 mg/dL: 92 Triglycerides (mg/dL) Goal = less than 150 mg/dL: 148 - Diabetes Diabetic History: Type II - 10 years, Medication Dependent Nutrition Referral for Diabetes: Yes - Obesity Height: 6 ft Weight:: 333 lb Weight in Pounds: 333.0 lbs Weight Source: Stated by Patient Body Mass Index (BMI): 45.1 Desired Body Weight: 250 Realistic Weight Goal (Loss of 1-2 lbs/week): 316 Nutritional Referral for Obesity: Yes - Physical Inactivity Physical Inactivity: None - Risk Stratification Risk Guidelines: Lowest Risk: Risk Factor for Smoking, Moderate Risk: Risk Factor for Dyslipidemia, Risk Factor for Hypertension, Highest Risk: Risk Factor for Diabetes, Risk Factor for Obesity, Risk Factor for Sedentary Lifestyle, Risk Factor for Depression - For Smoking Smoking Risk Guidelines: Smoking Low Risk: None or quit greater than 6 months ago. Smoking Moderate Risk: Smoker or quit 6 months or less ago. Smoking High Risk: Smoker - For Dyslipidemia Dyslipidemia Risk Guidelines: Low Risk: Moderate Risk: High Risk: 15-25% fat 25.1-29% fat >/= 30% fat. <7% sat fat 7-9% sat fat >9% sat fat. <150 mg chol 150-299 mg chol >/= 300 mg chol. LDL <100 LDL 100-129 LDL >/= 130. Chol/HDL ratio <5.0 Chol/HDL ratio 5.0-6.0 Chol/HDL ratio >6.0. Triglycerides <100 Triglycerides 100-149 Triglycerides >/= 150 - For Diabetes Mellitus Diabetes Risk Guidelines: Diabetes Low Risk: HgA1c <6.5% and/or FBG <120. Diabetes Moderate Risk: HgA1c 6.6-7.9% and/or FBG 120-180. Diabetes High Risk: HgA1c >/= 8% and/or FBG >180 - For Obesity/Overweight Obesity/Overweight Risk Guidelines: Obesity Low Risk: BMI <25.0. Obesity Moderate Risk: BMI 25-29.9. Obesity High Risk: BMI >/= 30.0 - For Hypertension Hypertension Risk Guidelines: Hypertension Low Risk: Systolic <120 and Diastolic <80. Hypertension Moderate Risk: Systolic 120-139 and Diastolic 80-89. Hypertension High Risk: Systolic >/= 140 and Diastolic >/= 90 - For Sedentary Lifestyle Sedentary Lifestyle Risk Guidelines: Sedentary Lifestyle Low Risk: >/= 1,500 kcal/week. Sedentary Lifestyle Moderate Risk: 700-1,499 kcal/week. Sedentary Lifestyle High Risk: < 700 kcal/week - For Depression Depression Risk Guidelines: Depression Low Risk: Not clinically depressed. Depression Moderate Risk: Mildly depressed. Depression High Risk: Clinically depressed - Family History Family History: Family History (Last Reviewed 06/09/18 @ 11:03 by Evelyn Mariano) Father Colon cancer Brother CAD (coronary artery disease) Diabetes Sister Diabetes Motivation - Motivation to Participate On a scale of 1 to 10, how prepared are you to commit to attending program?: 8
--- NOTE | 2018-09-18 09:46 | CR.ITP_ITS ---
General Information - General Information Admitting Diagnosis: s/p TAVR - Education/Goals Barriers to Learning: None, Vision Impairment - wears glasses Individual Counseling: Initial Assessment: Nicotine/Smoking, Abnormal Cholesterol Levels, High Blood Pressure, Overweight/Obesity, Diabetes, Hypertension, Sedentary Lifestyle, Stress, Family History of Heart Disease (under 65 years) Cardiac Rehabilitation Goals: 1. Maintain the individual as the primary focus of care. 2. To improve the patient's quality of life. 3. Identification of cardiac risk factors and provide cardiac risk factor management. 4. Enhance the psychosocial status of the patient. 5. Reconditioning enough to allow the patient to resume customary activities. 6. Control symptoms of cardiac disease Scale for measuring improvement of personal goals: Enter appropriate number in Comments. 2 = Unchanged. 3 = Slightly Better. 4 = Moderate Improvement. 5 = Met my Goal Personal Goals: Initial Assessment: Improve management of stress and emotions, Improve energy level, Participate in home exercise program, Get back to work, or to resume activities faster, Improve knowledge of cardiac disease, Improve muscle strength and endurance, Improve diet and eating habits (eat healthier), Control risk factors (learn risk factor modification) Exercise - Initial Assessment - Visit Date of Eval: 09/18/18 - Stages of Change Stages of Change:: Action - Physician Prescribed Exercise Modalities: Treadmill, Biodyne, Rower, Airdyne, NuStep, SciFit Frequency (days/week): 3x/week for 12 weeks [36 sessions] Duration (Minutes):: 30-35 min Intensity: 60-80% age predicted maximum heart rate reserve - Hypertension Do any of the following apply?: Yes - Intervention Home Exercise/Activity Goal:: Moderate Exercise 30 min/day x 5 days/wk - Education Goals:: Warm-up, RPE ABDIFATAH Scale, Safe Exercise, Self-Monitoring - Exercise Program Goals Exercise Program Goals: Aerobic Activity >30 min Nutrition - Initial Assessment - Program Goals Nutrition Program Goals: LDL <70. Total Cholesterol <200. HDL >45. Triglycerides <150. HgbA1C <7%. BMI <25 - Visit Date of Assessment:: 09/18/18 - Stages of Change Stages of Change:: Action - Lipids Total Cholesterol (mg/dL) Goal = less than 200 mg/dL: 167 HDL Cholesterol (mg/dL) Goal = less than 45 mg/dL: 45 LDL Cholesterol (mg/dL) Goal = less than 70 mg/dL: 92 Triglycerides (mg/dL) Goal = less than 150 mg/dL: 148 - Diabetes Diabetes:: Yes Fasting blood glucose:: 220 Hgb A1C: 7.0 Insulin: No Non-Insulin Dependent?: Yes Do you monitor your blood sugar at home?: Yes - Weight Management Height: 6 ft Weight:: 333 lb Weight Goal (kg):: 250 lb Body Fat %:: 45.16 Goal % Body Fat:: 25 - Intervention Referral to dietitian:: Yes Referral to Diabetic Clinic:: Yes Will attend diet classes:: Yes - Education Gave educational materials for:: Signs & symptoms of hypoglycemia, Signs & symptoms of hyperglycemia, Relate diabetes to coronary artery disease, Healthy eating Tobacco - Initial Assessment - Program Goals Tobacco Program Goals: Complete smoking cessation. Attend education classes. Improve Knowledge Test score - Stage of Change Stages of Change:: Maintenance - Learning Barriers Learning Barriers: Ready to Learn Total Score:: 12 - Family Support Do you have family support?: Yes - Tobacco Use Tobacco Use: Non-smoker Do you use smokeless tobacco?: No - Intervention Smoking Cessation Referral:: No Individual Education/Counseling:: No Education Schedule Given:: Yes - Education Gave educational material for:: Coronary artery disease, Risk factors, Sexuality, Medical compliance, Cardiac A&P, Angina signs & symptoms Psychosocial - Initial Assess - Target Goals Target Goals: Assess presence or absence of depression. Using a valid screening tool, maximizes coping skills. Positive support system - Stages of Change Stages of Change:: Action - Psychosocial Test Tool Used:: HANDS Depression Questionnaire Self-reported stress:: yes Tests Completed: SF - 36 survey completed, Mood Scale Test Total Mood Screening Score:: 11 Self-Efficacy Score:: 4 - Intervention PS - Interventions: Yes Referral to Mental Health - pt is in counselling at counselling center. Other ph numbers given., Yes Attend Stress Management Cl asses, Yes Uses Stress Management Skills, No Referral to [facility] Case Management, No Referral to Physician - Education Gave educational materials for:: Coping techniques, Signs & symptoms of depression, Stress management, Relaxation techniques - Patient/Program Goal Preventative Medication(s):: Aspirin, MARLYS inhibitor, Clopidogrel, Beta bernadine, Statin/lipid - Assistive Devices Assistive Devices:: Cane, Wheelchair Fall Risk Assessed:: Yes - peripheral neuropathy, gait unsteady. Patient Health Questionnaire Initial Assessment 1. Little interest or pleasure in doing things: Nearly every day 2. Feeling down, depressed, or hopeless: More than half the days 3. Trouble falling or staying asleep, or sleeping too much: Not at all 4. Feeling tired or having little energy: More than half the days 5. Poor appetite or overeating: Not at all 6. Feeling bad about yourself -- or that you are a failure or have let yourself or your family down: More than half the days 7. Trouble concentrating on things, such as reading the newspaper or watching television: Not at all 8. Moving or speaking so slowly that other people could have noticed. Or the opposite - being so fidgety or restless that you have been moving around a lot more than usual: Not at all 9. Thoughts that you would be better off , or of hurting yourself in some way: More than half the days How difficult have these problems made it for you to do your work, take care of things at home, or get along with other people?: Not difficult at all Total Score: 11 GABINO-Q SV Test - Statements CAD is a disease of the arteries in the heart: False Examples of risk factors for heart disease: True Angina is chest pain or discomfort: False The benefits of resistance training include: True Eating more meat and dairy products: False Anti-platelet medications such as aspirin are important: True The only effective way to manage stress: False An exercise warm-up slowly increases heart rate: I Don't Know Prepared, processed foods usually have high sodium: True Depression is common after a heart attack: I Don't Know The statin medications lower cholesterol: True To control blood pressure, lower the amount of sodium: I Don't Know If someone gets chest discomfort during walking: False Transfats are partially hydrogenated vegetable oils: I Don't Know Sleep apnea that is not treated increases the risk: True To control cholesterol, one should become a vegetarian: False Someone knows if he/she is exercising at the right level: I Don't Know Diabetes cannot be prevented with exercise & health eating: False Stress is a large risk for heart attack: True A diet that can help lower blood pressure is rich in: I Don't Know - Total Score Total Correct Responses: 12 Self-Efficacy Initial Assessment We would like to know how confident you are in doing certain activities. Please select your confidence level for:: Select your confidence level for the following using the scale 1-10 where 1 is not at all confident and 10 is totally confident. Your score is the average of all 6 responses. Fatigue: How confident are you that you can keep the fatigue caused by your disease from interfering with the things you want to do? Select Number: 3 Physical Discomfort or Pain: How confident are you that you can keep the physical discomfort or pain of your disease from interfering with the things you want to do? Select Number: 2 Emotional Distress: How confident are you that you can keep the emotional distress caused by your disease from interfering with the things you want to do? Select Number: 5 Other Symptoms or Health Problems: How confident are you that you can keep other symptoms or health problems from interfering with the things you want to do? Select Number: 3 Different Tasks and Activities: How confident are you that you can do the different tasks and activities needed to manage your health condition so as to reduce your need to see a doctor? Select Number: 6 Medication: How confident are you that you can do things other than just taking medication to reduce how much your illness affects your everyday life? Select Number: 5 Total Score:: 4 Nutrition Survey - Nutrition Survey Instructions Scoring Instructions: Scoring is as follows: Yes = 1 points. No = 0 point. Patient score that is >/=12 is considered to be at potential nutritional risk and could benefit from a referral to a registered dietitian. - Nutrition Survey Initial Have you lost >10 lbs over the past 2 months without trying?: No Are you following a special diet at home for diabetes, low fat, or low salt?: Yes Are you interested in meeting with a dietitian for help understanding your diet?: Yes Do you eat less than 3 meals a day?: No Do you eat fatty meats (gutierrez, sausage, ribs, etc), fried foods, desserts, large amounts of salad dressings, margarine, butter, or cheese most days?: Yes Do you have food allergies? [Enter types in comment field]: No Do you eat in restaurants more than 3 times a week?: No Do you season food with salt, seasoning salt, or garlic salt?: Yes Do you used canned, boxed, frozen meals, or soups, seasoning packets?: Yes Total Score:: 5
--- NOTE | 2018-09-18 09:50 | CR.HP_ITS ---
CR - History & Physical - General Arrival date:: 09/18/18 Arrival time:: 09:44 Date of Referral:: 09/18/18 Date of CR Evaluation:: 09/18/18 Referring Physician: Dr. Vinny Diggs MD Primary Diagnosis: s/p TAVR - History of Present Cardiac Event Onset Date: Enter Onset Date of cardiac illnesses in Comment field below Current stable Angina Pectoris:: No Acute Myocardial Infarction within 12 months:: No Coronary Artery Bypass Graft:: No Heart valve replacement or repair:: Yes - TAVR 07/28/18 PTCA or coronary stenting:: No Heart or Heart-Lung Transplant:: No Heart Failure EF <35%:: No Type of Symptoms:: murmur Interventions with present event:: TAVR Were there any complications?: no - Medications Home Medications: Ambulatory Orders Medication Instructions Recorded Aspirin E.C. [Ecotrin] 81 mg PO DAILY@0800 06/18/13 Metformin HCl [Glucophage] 500 mg PO BID 06/18/13 Areds 1 tab PO BID 10/18/14 Multivitamins,Ther W-Minerals 1 tab PO DAILY 10/18/14 [Multivitamin With Minerals] Finasteride [Proscar] 5 mg PO DAILY 01/11/15 busPIRone [Buspar] 5 mg PO BID 01/11/15 Cholecalciferol (Vitamin D3) 1,000 unit PO DAILY 12/03/16 [Vitamin D3] Gabapentin [Neurontin] 900 mg PO TIDCM 12/03/16 lisinopril 40 mg tablet 40 mg PO DAILY #90 tab 10/04/17 simvastatin 20 mg tablet 20 mg PO QHS #90 tab 10/24/17 bupropion HCl SR 200 mg tablet,12 200 mg PO QHS tab 11/04/17 hr sustained-release bupropion HCl XL 300 mg 24 hr 300 mg PO QAM 11/04/17 tablet, extended release lactobacillus combination no.11 15 1 cap PO QDAY 11/04/17 billion cell sprinkle capsule hydrochlorothiazide 25 mg tablet 25 mg PO DAILY #90 tab 12/09/17 metoprolol succinate ER 100 mg 100 mg PO DAILY 06/09/18 tablet,extended release 24 hr levothyroxine 150 mcg tablet 150 mcg PO DAILY 06/11/18 Acetaminophen [Shake That Ache] 500 mg PO Q8H PRN PRN 09/18/18 Amlodipine Besylate 7.5 mg PO DAILY 09/18/18 Glimepiride [Amaryl] 1 mg PO DAILY 09/18/18 Hydrocodone/Acetaminophen [Benjamin 1 each PO BID PRN PRN 09/18/18 5-325 Tablet] Oxygen, Home [Home Oxygen] 2 lpm NASAL QHS 09/18/18 Polyethylene Glycol 3350 [Miralax] 17 gm PO DAILY PRN 09/18/18 - Allergies Allergies/Adverse Reactions: Allergies No Known Allergies Allergy (Verified 06/09/18 11:28) - Sleep Disorder Evaluation Hx of Sleep Apnea: Yes Do you snore loudly (louder than talking or can be heard through closed doors)?: Yes Do you often feel tired/ fatigued/ sleepy during daytime?: Yes Has anyone observed you stop breathing during sleep?: Yes History of Hypertension (for STOP score): Yes STOP Results: Positive Advanced Directives - Advanced Directives Power of Bias Machine Operator: Yes Living Will: Yes Advance Directives Information Provided: Yes Advance Directives on File: Yes DNR Order?:: No Past Medical History - Past Medical Illness Medical History: Past Medical History (Last Reviewed 06/09/18 @ 11:03 by Evelyn Mariano) Obstructive sleep apnea (Chronic) G47.33 Nonrheumatic aortic (valve) stenosis (Chronic) I35.0 Obesity (Chronic) E66.9 Hypertension (Chronic) I10 Diabetes type 2, uncontrolled (Chronic) E11.65 Hyperlipidemia (Chronic) E78.5 Hypothyroidism (Chronic) E03.9 Peripheral autonomic neuropathy G90.9 Chest pain (Resolved) R07.9 Postural hypotension I95.1 - Past Surgical History Surgical History: Past Surgical History (Last Reviewed 06/09/18 @ 11:03 by Evelyn Mariano) History of prostate surgery Z98.890 Ankle fracture, right S82.891A Surgical History: - - ankle fracture, prostate surg. 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 Review of Systems - Review of Systems Hints: Right click = Denies ([place]). Left click = Reports ([place]) Review of Present Symptoms: Reports: Shortness of Breath at Rest - sometimes needs to take a deep breath., Dizziness/Lightheadedness - at times due to meds he thinks, Appetite - Normal, Appetite - Special Diet, Sleep - Normal - doesn't sleep well at night.. Denies: Shortness of Breath with Exertion, PVD, Operative Discomfort, Angina, Wound Healing, Fatigue, Heart Arrhythmia/Irregularities, Sexual Changes - Pain Is Patient Pain Free?: No Pain Location: back, other - feet neuropathy Pain Level: 10/20 - On Neurontin Previous experience dealing with pain?: has rolater to sit on for pain relief and norco Risk Factor Assessment - Chief Complaint Chief Complaint: s/p TAVR - Vital Signs Pulse Ox: 92 - Pulse Pulse Rate: 76 Pulse Rhythm: Regular - Hypertension How long have you been treated?: 20 years On medication(s)?: yes Blood Pressure Sitting - Right Arm: 140/72 Blood Pressure Sitting - Left Arm: 126/74 - Stress Stress: Recent, Long-standing - Blood Cholesterol/Lipids Total Cholesterol (mg/dL) Goal = less than 200 mg/dL: 167 HDL Cholesterol (mg/dL) Goal = less than 40 mg/dL: 45 LDL Cholesterol (mg/dL) Goal = less than 70 mg/dL: 92 Triglycerides (mg/dL) Goal = less than 150 mg/dL: 148 - Diabetes Diabetic History: Type II - 10 years, Medication Dependent Nutrition Referral for Diabetes: Yes - Obesity Height: 6 ft Weight:: 333 lb Weight in Pounds: 333.0 lbs Weight Source: Stated by Patient Body Mass Index (BMI): 45.1 Desired Body Weight: 250 Realistic Weight Goal (Loss of 1-2 lbs/week): 316 Nutritional Referral for Obesity: Yes - Physical Inactivity Physical Inactivity: None - Risk Stratification Risk Guidelines: Lowest Risk: Risk Factor for Smoking, Moderate Risk: Risk Factor for Dyslipidemia, Risk Factor for Hypertension, Highest Risk: Risk Factor for Diabetes, Risk Factor for Obesity, Risk Factor for Sedentary Lifestyle, Risk Factor for Depression - For Smoking Smoking Risk Guidelines: Smoking Low Risk: None or quit greater than 6 months ago. Smoking Moderate Risk: Smoker or quit 6 months or less ago. Smoking High Risk: Smoker - For Dyslipidemia Dyslipidemia Risk Guidelines: Low Risk: Moderate Risk: High Risk: 15-25% fat 25.1-29% fat >/= 30% fat. <7% sat fat 7-9% sat fat >9% sat fat. <150 mg chol 150-299 mg chol >/= 300 mg chol. LDL <100 LDL 100-129 LDL >/= 130. Chol/HDL ratio <5.0 Chol/HDL ratio 5.0-6.0 Chol/HDL ratio >6.0. Triglycerides <100 Triglycerides 100- 149 Triglycerides >/= 150 - For Diabetes Mellitus Diabetes Risk Guidelines: Diabetes Low Risk: HgA1c <6.5% and/or FBG <120. Diabetes Moderate Risk: HgA1c 6.6-7.9% and/or FBG 120-180. Diabetes High Risk: HgA1c >/= 8% and/or FBG >180 - For Obesity/Overweight Obesity/Overweight Risk Guidelines: Obesity Low Risk: BMI <25.0. Obesity Moderate Risk: BMI 25-29.9. Obesity High Risk: BMI >/= 30.0 - For Hypertension Hypertension Risk Guidelines: Hypertension Low Risk: Systolic <120 and Diastolic <80. Hypertension Moderate Risk: Systolic 120-139 and Diastolic 80-89. Hypertension High Risk: Systolic >/= 140 and Diasto lic >/= 90 - For Sedentary Lifestyle Sedentary Lifestyle Risk Guidelines: Sedentary Lifestyle Low Risk: >/= 1,500 kcal/week. Sedentary Lifestyle Moderate Risk: 700-1,499 kcal/week. Sedentary Lifestyle High Risk: < 700 kcal/week - For Depression Depression Risk Guidelines: Depression Low Risk: Not clinically depressed. Depression Moderate Risk: Mildly depressed. Depression High Risk: Clinically depressed - Family History Family History: Family History (Last Reviewed 06/09/18 @ 11:03 by Evelyn Mariano) Father Colon cancer Brother CAD (coronary artery disease) Diabetes Sister Diabetes Motivation - Motivation to Participate On a scale of 1 to 10, how prepared are you to commit to attending program?: 8
[2018-09-18 10:41] VITALS: BP 126/74; BP 140/72; PULSE 76; O2SAT 92; BMI 45.1
== END ==
PROVIDERS: Family Provider Family Medicine; PCP Family Medicine; Referring Provider Internal Medicine Cardiovascular Disease; Visit Provider Internal Medicine Cardiovascular Disease
DX: E11.9 Type 2 diabetes mellitus without complications (principal); E66.9 Obesity, unspecified

== ENCOUNTER 2018-10-03 09:15 | Outpatient (RCR) | payer MEDICARE, OTHER, SELFPAY ==
[2018-09-18 10:41] VITALS: BMI 45.1
== END 2018-10-10 23:59 ==
LOC: CR 09:15
PROVIDERS: Family Provider Family Medicine; PCP Family Medicine; Referring Provider Internal Medicine Cardiovascular Disease; Visit Provider Internal Medicine Cardiovascular Disease
DX: Z95.2 Presence of prosthetic heart valve (principal)
CPT/HCPCS: 93798

== ENCOUNTER 2018-10-09 19:04 | Emergency (ER) | payer MEDICARE, OTHER, SELFPAY ==
[2018-10-08 08:32] VITALS: BMI 45.4
[2018-10-09 19:05] VITALS: BP 153/87; PULSE 66; RESP 16; TEMP 36.6; O2SAT 95; BMI 45.4
[2018-10-09] MEDS: HYDROcodone Bitartrate/Apap 5/325 Tablet PO (20:47)
--- NOTE | 2018-10-09 20:55 | RAD_ITS ---
STUDY: X-RAY - PELVIS AND RIGHT HIP REASON FOR EXAM: Male, 73 years old. Chronic pain. TECHNIQUE: 3 views of the pelvis and hip. COMPARISON: September 20, 2016 FINDINGS: There is a non-specific bowel gas pattern. Normal visualized soft tissue structures. There are degenerative changes of the visualized lower lumbar spine. There are degenerative changes of the sacroiliac joints. Normal bilateral superior and inferior pubic rami. Normal pubic symphysis. Normal bilateral ischial tuberosities. There are degenerative changes of the hips characterized by joint space narrowing and subchondral sclerosis. RAD/HIP, UNI W/ Pelvis 2-3 Views IMPRESSION: Degenerative changes. Electronically Signed: Azalia Rodriguez MD at 21:18 EDT Tel , Service support ,
--- NOTE | 2018-10-09 21:02 | ED.VIS.GEN ---
History of Present Illness Chief Complaint: Lower Extremity Injury Informant: Patient Onset: Month(s) Context: Gradual Onset Timing: Continuous, Waxes and wanes Quality: Pain right greater trochanteric region and posterior right hip Location: Read above Current Severity: Mild Maximum Severity: Severe Worsened by: Weightbearing and initiation of gait Relieved by: Better resting Associated Symptoms: no associated symptoms Narrative: Patient is a 73-year-old male who states he has had hip pain since falling 3 years ago. He fell twice within a 2-week period. States he had x-rays. Prior records were reviewed and no x-rays have been taken in the past 2 years. He denies symptoms of claudication. He denies recent trauma. He denies fever, chills or night sweats. He denies joint swelling. He denies GI or symptoms. - Past Medical History (1) Essential (primary) hypertension Status: Chronic (2) Hyperlipidemia Status: Chronic (3) Lower extremity edema Status: Chronic (4) Non-rheumatic aortic stenosis Status: Chronic Comment: TAVR w/ 29 mm Zamora Izzy S3 07/28/2018 (5) H/O aortic valve replacement Status: Resolved Comment: TAVR w/ 29 mm Zamora Izzy S3 07/28/2018 Past Medical History - Allergies and Home Meds Allergies/Adverse Reactions: Allergies No Known Allergies Allergy (Verified 10/09/18 19:06) Primary Care Physician: Diony Barber III, MD [Primary Care Provider] - Prior records reviewed: Yes Surgical History: - - ankle fracture, prostate surg. Lives: Alone Smoking Status: Never smoker Drugs: None Review of Systems General: Denies: Chills, Fever, Sweats Eyes: Denies: Visual changes - bilaterally, Diplopia ENT: Denies: Rhinorrhea, Sore throat Cardiovascular: Denies: Chest pain, Palpitations Respiratory: Denies: Dyspnea, Cough, Dyspnea on exertion Gastrointestinal: Denies: Abdominal pain, Nausea, Vomiting, Diarrhea, Melena, Hematochezia Genitourinary: Denies: Dysuria, Hematuria, Frequency Musculoskeletal: Reports: Extremity Pain - Right hip. Denies: Myalgias, Arthralgias, Neck pain, Back pain Skin: Denies: Rash, Wounds Neurological: Denies: Headache, Weakness, Numbness Physical Exam Vital Signs/Narrative: Vital Signs Temp Pulse Resp BP Pulse Ox 10/09/18 19:05 98 F 66 16 153/87 H 95 Inital Vital Signs reviewed: Yes General: Well nourished, Well developed, Obese, No Acute Distress Head: Normocephalic, Atraumatic Eyes: Perrl, EOMI. Negative for: Pale conjunctiva, Scleral icterus, - ENT: Moist mucous membranes, No rhinorrhea, TM's clear Cardiovascular: Regular rate, Regular rhythm, No murmurs, Normal S1, Normal S2 Respiratory: No distress, CTA bilaterally, Chest nontender Abdomen: Soft, Nontender, Nondistended, Normal bowel sounds Rectal: Deferred Back: Negative for: Nontender, Normal Inspection Extremities: Tenderness, Edema, - - Pain to palpation soup. And slightly posterior where the greater trochanteric bursa lies. Minimal discomfort with flexion of the hip to 90 degrees internal and external rotation and downward force. Dionicio Ana for test causes pain posteriorly.. Negative for: Nontender, No edema Skin: Normal color, No rash. Negative for: Cyanosis, Diaphoresis, Jaundice Neurological: Alert, Oriented x3, Cranial nerves II-XII grossly intact, Normal Strength, Normal Sensation Psychological: Normal affect, Normal Mood Diagnostic/Tx/Re-eval Chest X-Ray - ED: Read by ED Physician, - - Three-view x-ray of the hip reveals minimal degenerative changes of the right and left hip joint. There is evidence of moderate arthritis of the SI joint right and left. There is also degenerative changes of the lower lumbar spine that are visualized. - Medical Decision Making Since patient has not had imaging in over 3 years and reports increasing pain will obtain x-ray to see if there is evidence of malignancy, arthritis, fracture. He was medicated with [place] since he has a ride home. Patient was informed of his results. He was informed that he can take more than 1 or 2 [place] a day. He has an appointment with Dr. Parr on and Dr. Estrella on Saturday, October 14. 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
--- NOTE | 2018-10-09 21:06 | ED.DCSUM_ITS ---
History of Present Illness Chief Complaint: Lower Extremity Injury Informant: Patient Onset: Month(s) Context: Gradual Onset Timing: Continuous, Waxes and wanes Quality: Pain right greater trochanteric region and posterior right hip Location: Read above Current Severity: Mild Maximum Severity: Severe Worsened by: Weightbearing and initiation of gait Relieved by: Better resting Associated Symptoms: no associated symptoms Narrative: Patient is a 73-year-old male who states he has had hip pain since falling 3 years ago. He fell twice within a 2-week period. States he had x-rays. Prior records were reviewed and no x-rays have been taken in the past 2 years. He denies symptoms of claudication. He denies recent trauma. He denies fever, chills or night sweats. He denies joint swelling. He denies GI or symptoms. - Past Medical History (1) Essential (primary) hypertension Status: Chronic (2) Hyperlipidemia Status: Chronic (3) Lower extremity edema Status: Chronic (4) Non-rheumatic aortic stenosis Status: Chronic Comment: TAVR w/ 29 mm Zamora Izzy S3 07/28/2018 (5) H/O aortic valve replacement Status: Resolved Comment: TAVR w/ 29 mm Zamora Izzy S3 07/28/2018 Past Medical History - Allergies and Home Meds Allergies/Adverse Reactions: Allergies No Known Allergies Allergy (Verified 10/09/18 19:06) Primary Care Physician: Diony Barber III, MD [Primary Care Provider] - Prior records reviewed: Yes Surgical History: - - ankle fracture, prostate surg. Lives: Alone Smoking Status: Never smoker Drugs: None Review of Systems General: Denies: Chills, Fever, Sweats Eyes: Denies: Visual changes - bilaterally, Diplopia ENT: Denies: Rhinorrhea, Sore throat Cardiovascular: Denies: Chest pain, Palpitations Respiratory: Denies: Dyspnea, Cough, Dyspnea on exertion Gastrointestinal: Denies: Abdominal pain, Nausea, Vomiting, Diarrhea, Melena, Hematochezia Genitourinary: Denies: Dysuria, Hematuria, Frequency Musculoskeletal: Reports: Extremity Pain - Right hip. Denies: Myalgias, Arthralgias, Neck pain, Back pain Skin: Denies: Rash, Wounds Neurological: Denies: Headache, Weakness, Numbness Physical Exam Vital Signs/Narrative: Vital Signs Temp Pulse Resp BP Pulse Ox 10/09/18 19:05 98 F 66 16 153/87 H 95 Inital Vital Signs reviewed: Yes General: Well nourished, Well developed, Obese, No Acute Distress Head: Normocephalic, Atraumatic Eyes: Perrl, EOMI. Negative for: Pale conjunctiva, Scleral icterus, - ENT: Moist mucous membranes, No rhinorrhea, TM's clear Cardiovascular: Regular rate, Regular rhythm, No murmurs, Normal S1, Normal S2 Respiratory: No distress, CTA bilaterally, Chest nontender Abdomen: Soft, Nontender, Nondistended, Normal bowel sounds Rectal: Deferred Back: Negative for: Nontender, Normal Inspection Extremities: Tenderness, Edema, - - Pain to palpation soup. And slightly posterior where the greater trochanteric bursa lies. Minimal discomfort with flexion of the hip to 90 degrees internal and external rotation and downward force. Dionicio Ana for test causes pain posteriorly.. Negative for: Nontender, No edema Skin: Normal color, No rash. Negative for: Cyanosis, Diaphoresis, Jaundice Neurological: Alert, Oriented x3, Cranial nerves II-XII grossly intact, Normal Strength, Normal Sensation Psychological: Normal affect, Normal Mood Diagnostic/Tx/Re-eval Chest X-Ray - ED: Read by ED Physician, - - Three-view x-ray of the hip reveals minimal degenerative changes of the right and left hip joint. There is evidence of moderate arthritis of the SI joint right and left. There is also degenerative changes of the lower lumbar spine that are visualized. - Medical Decision Making Since patient has not had imaging in over 3 years and reports increasing pain will obtain x-ray to see if there is evidence of malignancy, arthritis, fr acture. He was medicated with [place] since he has a ride home. Patient was informed of his results. He was informed that he can take more than 1 or 2 [place] a day. He has an appointment with Dr. Parr on and Dr. Estrella on October 14. 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
== END 2018-10-09 22:32 | disposition home or self-care (01) ==
PROVIDERS: Emergency Provider Emergency Medicine; Family Provider Family Medicine; PCP Family Medicine
DX: M16.12 Unilateral primary osteoarthritis, left hip (principal); M16.11 Unilateral primary osteoarthritis, right hip; M47.898 Other spondylosis, sacral and sacrococcygeal region; I10 Essential (primary) hypertension; E66.9 Obesity, unspecified
CPT/HCPCS: 73502; 99282

== ENCOUNTER 2018-10-14 10:44 | Outpatient (RCR) | payer MEDICARE, OTHER, SELFPAY ==
[2018-09-18 10:41] VITALS: BMI 45.1
[2018-10-11 01:20] VITALS: BMI 45.1
== END 2018-11-09 23:59 ==
LOC: DC 10:44
PROVIDERS: Family Provider Family Medicine; PCP Family Medicine; Visit Provider Internal Medicine Cardiovascular Disease
DX: E11.9 Type 2 diabetes mellitus without complications (principal); E66.9 Obesity, unspecified; Z71.3 Dietary counseling and surveillance
CPT/HCPCS: 97802

== ENCOUNTER 2018-11-03 09:15 | Outpatient (RCR) | payer MEDICARE, OTHER, SELFPAY ==
[2018-10-11 01:20] VITALS: BMI 45.1
--- NOTE | 2018-10-17 07:14 | PCM.CR.ITP ---
Exercise - 30-day Assessment - Visit Date of Eval: 10/17/18 Session #:: 6 - Patient has not attended CR since 10/03/18 due to bilateral hip pain, knee pain, and leg pain. He is to see Dr. Estrella for injections and hopes to return to [facility]. - Stages of Change Stages of Change:: Relapse - Physician Prescribed Exercise Modalities: NuStep, SciFit Frequency (days/week): 3 Duration (Minutes):: 30-45 Intensity: 60-80% age predicted maximum heart rate reserve METs - Progression: 0.5-1.0 MET, RPE 11-14 WEEK: 3.5 Target Heart Rate:: 95-124 with max HR 87 - Hypertension Resting Blood Pressure:: 140/78 Peak Exercise Blood Pressure:: 152/80 Medication Changes:: No - Intervention Home Exercise/Activity Goal:: Sitting Time <3 hrs/day - Education Goals:: Warm-up, RPE ABDIFATAH Scale, S/S, Safe Exercise, Self-Monitoring - Exercise Program Goals Exercise Program Goals: Aerobic Activity >30 min Nutrition - Initial Assessment - Program Goals Nutrition Program Goals: LDL <70. Total Cholesterol <200. HDL >45. Triglycerides <150. HgbA1C <7%. BMI <25 - Diabetes Do you monitor your blood sugar at home?: Yes Nutrition - 30-Day Assessment - Program Goals Nutrition Program Goals: LDL <70. Total Cholesterol <200. HDL >45. Triglycerides <150. HgbA1C <7%. BMI <25 - Visit Date of Eval: 10/17/18 - Stages of Change Stages of Change:: Relapse - Lipids Has the patient seen the dietitian?: No - Diabetes Diabetes:: No Insulin: No Non-Insulin Dependent?: No - Weight Management Weight:: 339 lb - increase from 333 - Intervention Referral to dietitian:: No Referral to Diabetic Clinic:: No Will attend diet classes:: Yes - Education Attended class for:: Healthy eating Tobacco - Initial Assessment - Program Goals Tobacco Program Goals: Complete smoking cessation. Attend education classes. Improve Knowledge Test score - Learning Barriers Learning Barriers: Ready to Learn Tobacco - 30-Day Assessment - Program Goals Tobacco Program Goals: Complete smoking cessation. Attend education classes. Improve Knowledge Test score - Stage of Change Stages of Change:: Relapse - Learning Barriers Learning Barriers: Participates in education, Change in behavior - Family Support Do you have family support?: Yes - Tobacco Use Tobacco Use: Non-smoker Do you use smokeless tobacco?: No - Intervention Smoking Cessation Referral:: No Individual Education/Counseling:: No Education Schedule Given:: Yes - Education Attended class for:: Coronary artery disease, Risk factors, Sexuality, Medical compliance, Cardiac A&P, Angina signs & symptoms Psychosocial - Initial Assess - Target Goals Target Goals: Assess presence or absence of depression. Using a valid screening tool, maximizes coping skills. Positive support system - Psychosocial Test Tool Used:: HANDS Depression Questionnaire - Assistive Devices Fall Risk Assessed:: Yes - peripheral neuropathy, gait unsteady. Psychosocial - 30-Day Assess - Target Goals Target Goals: Assess presence or absence of depression. Using a valid screening tool, maximizes coping skills. Positive support system - Stages of Change Stages of Change:: Relapse - Psychosocial Test Tool Used:: HANDS Depression Questionnaire - Intervention PS - Interventions: Yes Attend Stress Management Classes, No Referral to Mental Health, No Referral to [facility] Case Management, No Referral to Physician, No Uses Stress Management Skills - Education Attended classes for:: Coping techniques, Signs & symptoms of depression, Stress management, Relaxation techniques - Patient/Program Goal Preventative Medication(s):: Aspirin, Clopidogrel, Beta bernadine, Statin/lipid - Assistive Devices Assistive Devices:: Cane, Walker, Wheelchair Fall Risk Assessed:: Yes Patient Health Questionnaire 30-Day Re-eval Assessment 1. Little interest or pleasure in doing things: Nearly every day 2. Feeling down, depressed, or hopeless: Nearly every day 3. Trouble falling or staying asleep, or sleeping too much: Not at all 4. Feeling tired or having little energy: More than half the days 5. Poor appetite or overeating: More than half the days 6. Feeling bad about yourself -- or that you are a failure or have let yourself or your family down: More than half the days 7. Trouble concentrating on things, such as reading the newspaper or watching television: Several days 8. Moving or speaking so slowly that other people could have noticed. Or the opposite - being so fidgety or restless that you have been moving around a lot more than usual: Not at all 9. Thoughts that you would be better off , or of hurting yourself in some way: Nearly every day How difficult have these problems made it for you to do your work, take care of things at home, or get along with other people?: Extremely difficult - Patient has become very depressed over his health issues. He could benefit form medical intervention or professional counseling. Total Score: 16 Self-Efficacy 30-Day Re-eval Assessment We would like to know how confident you are in doing certain activities. Please select your confidence level for:: Select your confidence level for the following using the scale 1-10 where 1 is not at all confident and 10 is totally confident. Your score is the average of all 6 responses. Fatigue: How confident are you that you can keep the fatigue caused by your disease from interfering with the things you want to do? Select Number: 2 Physical Discomfort or Pain: How confident are you that you can keep the physical discomfort or pain of your disease from interfering with the things you want to do? Select Number: 2 Emotional Distress: How confident are you that you can keep the emotional distress caused by your disease from interfering with the things you want to do? Select Number: 3 Other Symptoms or Health Problems: How confident are you that you can keep other symptoms or health problems from interfering with the things you want to do? Select Number: 3 Different Tasks and Activities: How confident are you that you can do the different tasks and activities needed to manage your health condition so as to reduce your need to see a doctor? Select Number: 5 Medication: How confident are you that you can do things other than just taking medication to reduce how much your illness affects your everyday life? Select Number: 4 Total Score:: 3
[2018-10-17 07:19] VITALS: BP 140/78; BP 152/80
--- NOTE | 2018-11-05 13:25 | EKG12_ITS ---
Test Reason : RHYTHM CHANGE Blood Pressure : / mmHG Vent. Rate : 070 BPM Atrial Rate : 070 BPM P-R Int : 228 ms QRS Dur : 092 ms QT Int : 388 ms P-R-T Axes : 056 040 048 degrees QTc Int : 419 ms Sinus rhythm with 1st degree A-V block Otherwise normal ECG Confirmed by RIMA MCKENZIE ([id number]), copy editor ABBI SHORE ([id number]) on 11/11/2018 11:50:48 AM Referred By: Bart Amado Confirmed By:RIMA MCKENZIE
== END 2018-11-09 23:59 ==
LOC: CR 09:15
PROVIDERS: Family Provider Family Medicine; PCP Family Medicine; Referring Provider Internal Medicine Cardiovascular Disease; Visit Provider Internal Medicine Cardiovascular Disease
DX: Z95.2 Presence of prosthetic heart valve (principal)
CPT/HCPCS: 93005; 93798

== ENCOUNTER 2018-11-25 13:00 | Outpatient (RCR) | payer MEDICARE, OTHER, SELFPAY ==
[2018-11-10 00:11] VITALS: BMI 45.4
== END 2018-12-10 23:59 ==
LOC: DC 13:00
PROVIDERS: Family Provider Family Medicine; PCP Family Medicine; Visit Provider Internal Medicine Cardiovascular Disease
DX: E11.9 Type 2 diabetes mellitus without complications (principal); E66.9 Obesity, unspecified; Z71.3 Dietary counseling and surveillance
CPT/HCPCS: 93798; 97803; G0108

== ENCOUNTER → 2018-12-04 | Outpatient (CLI) | payer MEDICARE, OTHER, SELFPAY ==
[2018-11-10 00:11] VITALS: BMI 45.4
--- NOTE | 2018-12-04 13:02 | RAD_ITS ---
STUDY: X-RAY - RIGHT KNEE REASON FOR EXAM: Male, 73 years old. Chronic knee pain TECHNIQUE: 2 view(s) of the knee. COMPARISON: None. FINDINGS: Normal visualized distal femur. Normal visualized proximal tibia and fibula. Normal proximal tibiofibular articulation. There is moderate degenerative arthrosis of the medial femorotibial compartment with moderate joint space narrowing. Normal lateral femorotibial compartment. There is moderate degenerative arthrosis of the patellofemoral articulation. The soft tissue structures are unremarkable. RAD/Knee 1 or 2 Views IMPRESSION: Degenerative arthrosis. Electronically Signed: Trino He MD at 13:31 EDT , Service support ,
== END | disposition home or self-care (01) ==
LOC: RAD 13:00
PROVIDERS: Family Provider Family Medicine; PCP Family Medicine; Referring Provider Anesthesiology Pain Medicine; Visit Provider Anesthesiology Pain Medicine
DX: M25.561 Pain in right knee (principal)
CPT/HCPCS: 73560

== ENCOUNTER 2018-12-10 09:15 | Outpatient (RCR) | payer MEDICARE, OTHER, SELFPAY ==
[2018-11-10 00:11] VITALS: BMI 45.4
[2018-11-10 00:54] VITALS: BP 140/78; BP 152/80
--- NOTE | 2018-11-17 06:55 | PCM.CR.ITP ---
Exercise - 60-Day Assessment - Visit Date of Eval: 11/17/18 Session #:: 16 - 16 of 24 scheduled - Stages of Change Stages of Change:: Maintenance - Physician Prescribed Exercise Modalities: NuStep, SciFit Frequency (days/week): 3 Duration (Minutes):: 30-45 Intensity: 60-80% age predicted maximum heart rate reserve METs - Progression: 0.5-1.0 MET, RPE 11-14 WEEK: 3.5 and sometimes not even exercising at this level due to hip pain Target Heart Rate:: 95-124 - Hypertension Resting Blood Pressure:: 96/60 Peak Exercise Blood Pressure:: 150/76 Medication Changes:: Yes - Intervention Home Exercise/Activity Goal:: Sitting Time <3 hrs/day - Education Goals:: Warm-up, RPE ABDIFATAH Scale, S/S, Safe Exercise, Self-Monitoring - Exercise Program Goals Exercise Program Goals: Aerobic Activity >30 min Nutrition - Initial Assessment - Program Goals Nutrition Program Goals: LDL <70. Total Cholesterol <200. HDL >45. Triglycerides <150. HgbA1C <7%. BMI <25 - Diabetes Do you monitor your blood sugar at home?: Yes Nutrition - 60-Day Assessment - Program Goals Nutrition Program Goals: LDL <70. Total Cholesterol <200. HDL >45. Triglycerides <150. HgbA1C <7%. BMI <25 - Visit Date of Eval: 11/17/18 - Stages of Change Stages of Change:: Maintenance - Lipids Has the patient seen the dietitian?: Yes - 10/14/2018 - Diabetes Diabetes:: Yes Insulin: Yes Non-Insulin Dependent?: Yes - Weight Management Weight:: 334 lb - Intervention Referral to dietitian:: No Referral to Diabetic Clinic:: No Will attend diet classes:: Yes - Education Attended class for:: Signs & symptoms of hypoglycemia, Signs & symptoms of hyperglycemia, Relate diabetes to coronary artery disease, Healthy eating Tobacco - Initial Assessment - Program Goals Tobacco Program Goals: Complete smoking cessation. Attend education classes. Improve Knowledge Test score - Learning Barriers Learning Barriers: Ready to Learn Tobacco - 60-Day Assessment - Program Goals Tobacco Program Goals: Complete smoking cessation. Attend education classes. Improve Knowledge Test score - Stage of Change Stages of Change:: Maintenance - Learning Barriers Learning Barriers: Participates in education - Family Support Do you have family support?: Yes - Tobacco Use Tobacco Use: Non-smoker Do you use smokeless tobacco?: No - Intervention Smoking Cessation Referral:: No Education Schedule Given:: Yes - Education Attended class for:: Coronary artery disease, Risk factors, Sexuality, Medical compliance, Cardiac A&P, Angina signs & symptoms Psychosocial - Initial Assess - Target Goals Target Goals: Assess presence or absence of depression. Using a valid screening tool, maximizes coping skills. Positive support system - Psychosocial Test Tool Used:: HANDS Depression Questionnaire - Assistive Devices Fall Risk Assessed:: Yes - peripheral neuropathy, gait unsteady. Psychosocial - 60-Day Assess - Target Goals Target Goals: Assess presence or absence of depression. Using a valid screening tool, maximizes coping skills. Positive support system - Stages of Change Stages of Change:: Maintenance - Psychosocial Test Tool Used:: HANDS Depression Questionnaire - Intervention PS - Interventions: Yes Attend Stress Management Classes, No Referral to Mental Health, No Referral to [facility] Case Management, No Referral to Physician, No Uses Stress Management Skills - Education Attended classes for:: Coping techniques, Signs & symptoms of depression, Stress management, Relaxation techniques - Patient/Program Goal Preventative Medication(s):: Aspirin, MARLYS inhibitor, Clopidogrel, Beta bernadine, Statin/lipid - Assistive Devices Assistive Devices:: Cane, Walker, Wheelchair Fall Risk Assessed:: Yes Patient Health Questionnaire 60-Day Re-eval Assessment 1. Little interest or pleasure in doing things: Nearly every day 2. Feeling down, depressed, or hopeless: Nearly every day 3. Trouble falling or staying asleep, or sleeping too much: Not at all 4. Feeling tired or having little energy: More than half the days 5. Poor appetite or overeating: More than half the days 6. Feeling bad about yourself -- or that you are a failure or have let yourself or your family down: More than half the days 7. Trouble concentrating on things, such as reading the newspaper or watching television: Several days 8. Moving or speaking so slowly that other people could have noticed. Or the opposite - being so fidgety or restless that you have been moving around a lot more than usual: Not at all 9. Thoughts that you would be better off , or of hurting yourself in some way: Nearly every day How difficult have these problems made it for you to do your work, take care of things at home, or get along with other people?: Very difficult - Recommend [facility] phone number given to patient. Total Score: 16 Self-Efficacy 60-Day Re-eval Assessment We would like to know how confident you are in doing certain activities. Please select your confidence level for:: Select your confidence level for the following using the scale 1-10 where 1 is not at all confident and 10 is totally confident. Your score is the average of all 6 responses. Fatigue: How confident are you that you can keep the fatigue caused by your disease from interfering with the things you want to do? Select Number: 3 Physical Discomfort or Pain: How confident are you that you can keep the physical discomfort or pain of your disease from interfering with the things you want to do? Select Number: 3 Emotional Distress: How confident are you that you can keep the emotional distress caused by your disease from interfering with the things you want to do? Select Number: 4 Other Symptoms or Health Problems: How confident are you that you can keep other symptoms or health problems from interfering with the things you want to do? Select Number: 4 Different Tasks and Activities: How confident are you that you can do the different tasks and activities needed to manage your health condition so as to reduce your need to see a doctor? Select Number: 6 Medication: How confident are you that you can do things other than just taking medication to reduce how much your illness affects your everyday life? Select Number: 5 Total Score:: 4
[2018-11-17 07:00] VITALS: BP 150/76; BP 96/60
== END 2018-12-10 23:59 ==
LOC: CR 09:15
PROVIDERS: Family Provider Family Medicine; PCP Family Medicine; Referring Provider Internal Medicine Cardiovascular Disease; Visit Provider Internal Medicine Cardiovascular Disease
DX: Z95.2 Presence of prosthetic heart valve (principal)
CPT/HCPCS: 93798

== ENCOUNTER 2018-12-31 09:15 | Outpatient (RCR) | payer MEDICARE, OTHER, SELFPAY ==
[2018-11-10 00:11] VITALS: BMI 45.4
[2018-12-11 00:52] VITALS: BP 150/76; BP 96/60
--- NOTE | 2018-12-17 08:27 | PCM.CR.ITP ---
General Information - General Information Admitting Diagnosis: TAVR - Education/Goals Barriers to Learning: None Cardiac Rehabilitation Goals: 1. Maintain the individual as the primary focus of care. 2. To improve the patient's quality of life. 3. Identification of cardiac risk factors and provide cardiac risk factor management. 4. Enhance the psychosocial status of the patient. 5. Reconditioning enough to allow the patient to resume customary activities. 6. Control symptoms of cardiac disease Scale for measuring improvement of personal goals: Enter appropriate number in Comments. 2 = Unchanged. 3 = Slightly Better. 4 = Moderate Improvement. 5 = Met my Goal Exercise - 90-Day Assessment - Visit Date of Eval: 12/17/18 Session #:: 29 - Stages of Change Stages of Change:: Action - Physician Prescribed Exercise Modalities: NuStep, SciFit Frequency (days/week): 3 Duration (Minutes):: 30-45 Intensity: 60-80% age predicted maximum heart rate reserve METs - Progression: 0.5-1.0 MET, RPE 11-14 WEEK: 3.5 - Hypertension Resting Blood Pressure:: 130/78 Peak Exercise Blood Pressure:: 160/80 - Intervention Home Exercise/Activity Goal:: Sitting Time <3 hrs/day - Education Goals:: Warm-up, RPE ABDIFATAH Scale, S/S, Safe Exercise, Self-Monitoring - Exercise Program Goals Exercise Program Goals: Aerobic Activity >30 min, B/P <130/80 Nutrition - Initial Assessment - Program Goals Nutrition Program Goals: LDL <70. Total Cholesterol <200. HDL >45. Triglycerides <150. HgbA1C <7%. BMI <25 - Diabetes Do you monitor your blood sugar at home?: Yes Nutrition - 90-Day Assessment - Program Goals Nutrition Program Goals: LDL <70. Total Cholesterol <200. HDL >45. Triglycerides <150. HgbA1C <7%. BMI <25 - Visit Date of Eval: 12/17/18 - Stages of Change Stages of Change:: Action - Lipids Has the patient seen the dietitian?: Yes - Diabetes Diabetes:: Yes Fasting blood glucose:: 188 Random Blood Glucose:: 188 - Weight Management Weight:: 150.593 kg - Intervention Referral to dietitian:: Yes Referral to Diabetic Clinic:: No Will attend diet classes:: Yes - Education Attended class for:: Signs & symptoms of hypoglycemia, Signs & symptoms of hyperglycemia, Relate diabetes to coronary artery disease, Healthy eating Tobacco - Initial Assessment - Program Goals Tobacco Program Goals: Complete smoking cessation. Attend education classes. Improve Knowledge Test score - Learning Barriers Learning Barriers: Ready to Learn Tobacco - 90-Day Assessment - Program Goals Tobacco Program Goals: Complete smoking cessation. Attend education classes. Improve Knowledge Test score - Stage of Change Stages of Change:: Action - Learning Barriers Learning Barriers: Participates in education - Family Support Do you have family support?: Yes - Tobacco Use Tobacco Use: Non-smoker Do you use smokeless tobacco?: No - Intervention Smoking Cessation Referral:: No Individual Education/Counseling:: No Education Schedule Given:: Yes - Education Attended class for:: Treating Heart Disease, How The Heart Works, What it means to have Heart Disease, How Coronary Artery Disease is Diagnosed, Heart Procedures, What Heart Medications Do, Risk Factors & Modifications, Living an Active Life, Nutrition, Emotions & Heart Disease, Stress Management & Relaxation, Sleep Disorders & Heart Disease Psychosocial - Initial Assess - Target Goals Target Goals: Assess presence or absence of depression. Using a valid screening tool, maximizes coping skills. Positive support system - Psychosocial Test Tool Used:: HANDS Depression Questionnaire - Assistive Devices Fall Risk Assessed:: Yes Psychosocial - 90-Day Assess - Target Goals Target Goals: Assess presence or absence of depression. Using a valid screening tool, maximizes coping skills. Positive support system - Stages of Change Stages of Change:: Action - Psychosocial Test Tool Used:: HANDS Depression Questionnaire - Intervention PS - Interventions: Yes Attend Stress Management Classes, Yes Uses Stress Management Skills, No Referral to Mental Health, No Referral to [facility] Case Management, No Referral to Physician - Education Attended classes for:: Coping techniques, Signs & symptoms of depression, Stress management, Relaxation techniques - Assistive Devices Assistive Devices:: Walker, Wheelchair Fall Risk Assessed:: Yes Patient Health Questionnaire 90-Day Re-eval Assessment 1. Little interest or pleasure in doing things: Nearly every day 2. Feeling down, depressed, or hopeless: Nearly every day 3. Trouble falling or staying asleep, or sleeping too much: Not at all 4. Feeling tired or having little energy: More than half the days 5. Poor appetite or overeating: More than half the days 6. Feeling bad about yourself -- or that you are a failure or have let yourself or your family down: More than half the days 7. Trouble concentrating on things, such as reading the newspaper or watching television: Several days 8. Moving or speaking so slowly that other people could have noticed. Or the opposite - being so fidgety or restless that you have been moving around a lot more than usual: Not at all 9. Thoughts that you would be better off , or of hurting yourself in some way: Nearly every day How difficult have these problems made it for you to do your work, take care of things at home, or get along with other people?: Very difficult - recommended professional counseling Behavioral Health phone number given Total Score: 16 Self-Efficacy 90-Day Re-eval Assessment We would like to know how confident you are in doing certain activities. Please select your confidence level for:: Select your confidence level for the following using the scale 1-10 where 1 is not at all confident and 10 is totally confident. Your score is the average of all 6 responses. Fatigue: How confident are you that you can keep the fatigue caused by your disease from interfering with the things you want to do? Select Number: 3 Physical Discomfort or Pain: How confident are you that you can keep the physical discomfort or pain of your disease from interfering with the things you want to do? Select Number: 3 Emotional Distress: How confident are you that you can keep the emotional distress caused by your disease from interfering with the things you want to do? Select Number: 4 Other Symptoms or Health Problems: How confident are you that you can keep other symptoms or health problems from interfering with the things you want to do? Select Number: 4 Different Tasks and Activities: How confident are you that you can do the different tasks and activities needed to manage your health condition so as to reduce your need to see a doctor? Select Number: 6 Medication: How confident are you that you can do things other than just taking medication to reduce how much your illness affects your everyday life? Select Number: 5 Total Score:: 4
[2018-12-17 08:37] VITALS: BP 130/78; BP 160/80
== END 2019-01-10 23:59 ==
LOC: CR 09:15
PROVIDERS: Family Provider Family Medicine; PCP Family Medicine; Referring Provider Internal Medicine Cardiovascular Disease; Visit Provider Internal Medicine Cardiovascular Disease
DX: Z95.2 Presence of prosthetic heart valve (principal)
CPT/HCPCS: 93798

== ENCOUNTER 2019-01-08 06:00 | Outpatient (RCR) | payer MEDICARE, OTHER, SELFPAY ==
[2018-11-10 00:11] VITALS: BMI 45.4
== END 2019-01-10 23:59 ==
LOC: CR 06:00
PROVIDERS: Family Provider Family Medicine; PCP Family Medicine; Visit Provider Internal Medicine Cardiovascular Disease
DX: Z00.00 Encounter for general adult medical examination without abnormal findings (principal)

== ENCOUNTER 2019-02-05 06:00 | Outpatient (RCR) | payer MEDICARE, OTHER, SELFPAY ==
[2018-11-10 00:11] VITALS: BMI 45.4
== END 2019-02-09 23:59 ==
LOC: CR 06:00
PROVIDERS: Family Provider Family Medicine; PCP Family Medicine; Referring Provider Internal Medicine Cardiovascular Disease; Visit Provider Internal Medicine Cardiovascular Disease
DX: Z00.00 Encounter for general adult medical examination without abnormal findings (principal)

== ENCOUNTER 2019-03-04 08:59 | Outpatient (RCR) | payer MEDICARE, OTHER, SELFPAY ==
[2018-11-10 00:11] VITALS: BMI 45.4
== END 2019-03-04 23:59 | disposition home or self-care (01) ==
LOC: DC 08:59
PROVIDERS: Family Provider Family Medicine; PCP Family Medicine; Visit Provider Internal Medicine Cardiovascular Disease
DX: Z71.3 Dietary counseling and surveillance (principal); E11.9 Type 2 diabetes mellitus without complications; E66.9 Obesity, unspecified; Z95.2 Presence of prosthetic heart valve
CPT/HCPCS: G0108

== ENCOUNTER 2019-03-12 06:00 | Outpatient (RCR) | payer SELFPAY ==
[2018-11-10 00:11] VITALS: BMI 45.4
== END 2019-03-12 23:59 ==
LOC: CR 06:00
PROVIDERS: Family Provider Family Medicine; PCP Family Medicine; Referring Provider Internal Medicine Cardiovascular Disease; Visit Provider Internal Medicine Cardiovascular Disease
DX: Z00.00 Encounter for general adult medical examination without abnormal findings (principal)

== ENCOUNTER 2019-03-17 06:58 | Outpatient (RCR) | payer SELFPAY ==
[2019-03-05 09:45] VITALS: BMI 46.3
== END 2019-04-11 23:59 ==
LOC: CR 06:58
PROVIDERS: Family Provider Family Medicine; PCP Family Medicine; Referring Provider Internal Medicine Cardiovascular Disease; Visit Provider Internal Medicine Cardiovascular Disease
DX: Z00.00 Encounter for general adult medical examination without abnormal findings (principal)

== ENCOUNTER 2019-03-20 10:00 | Outpatient (RCR) | payer MEDICARE, OTHER, SELFPAY ==
[2018-11-10 00:11] VITALS: BMI 45.4
[2019-03-05 09:45] VITALS: BMI 46.3
--- NOTE | 2019-03-06 16:11 | HP.PTEVAL ---
Patient's Visit Information DMITRY SILVA is a 74 year old M referred to Physical Therapy by Patrcia Estrella MD with a diagnosis of Frequent falls. Date of Evaluation: 03/06/19 Physical Therapist: Yoshi Lezama, YANIT, OCS, CSCS - Visit Plan Frequency: 2x /Week Duration: 4-6 Weeks Plan: 2x/week for 4-6 weeks for ... 1. weight shifting and vest exercises for balance and progress as safety allows to HEP. 2. Gait training with wh walker for safety and appropriatenss wtih turning and walking, also please progress as safety allows to balance and gait without AD in clinic - Subjective Findings: Had heart cath earlier in the year and doing cardiac rehab at hospital. Has B knee OA, hip pain. Was working out in water 2x/week prior to heart cath. Has used a cane a year ago and more recently started with walker due to neuropathy from DM making him unsteady. Balance in legs is what he is here for. wants to get rid of walker that he has used for 2-3 months. Uses scooter out and about at [employer] and [employer] etc. Fell 2x in apartment in the last two weeks adn neighbor helped him up but did not injure himself. Has rollator at home and it did not turn with him. Now uses stadnard walker outside as it will not get away from him. Uses hydrocodone for nerve pain and disc problems in low back. Sleep OK in lift chair. Spends day watching tV, no regular exercises other than UBE adn Nustep at hospital. 30 min each 2x/week. Lives alone in aprtment without steps steps, dresses self and bathes and bathroom self. Stepping over tub has clinical pharmacist and can be dale but he can do it. - Pain back Pain Intensity (Out of 10): 0 Pain Intensity Range: 0, 6 Comment: worse in am. - Objective Walks extremely slow with standard walker and putting it out in front too far despite taking extremely small 4-5 steps with each leg. Trransfers slow but safe with UE to chair and small labored steps with walker when turning. Unable/willing to lie down today(sleeps in lift chair). reflexes 1/3 patella and achilles B. Sensation is diminished to gross light touch in feet adn ankles and lower legs. 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 Strength LE 5/5 in ankles, knees and 4+ in hips to single test today. Steps require B UE on rail but has the strength to push himself up, harder to eccentrically lower. coordination to reciproca toe adn heel tap is min deficits and not bad, similar with UE reciprocal tapping. Heel to zapata test is goo, although hard to lift at hip due to back pain. Very poor at weight shifting unwilling to get outside of [place]. romberg eo adn ec 30 seconds easily. - Balance Scores Functional Gait Assessment Score: 14 % Disability: 53.3400 - Goals Goal 1:: FGA without AD to minimize fall risk. Goal Time Frame: 4-6 Weeks Goal 2:: Patient to correctly utilize wh walker for safety , not weight bearing to minimize risk of it slipping out from under him. Goal Time Frame: 4-6 Weeks Goal 3:: Pt feel 75% safer carmelina bility to get around and able to get around at home without need for walker. Goal Time Frame: 4-6 Weeks Goal 4:: I appropriate HEP to minimize future problems. Goal Time Frame: 4-6 Weeks - Rehabilitation Potential Physical Therapy Diagnosis: Unsteadiness from neuropathy/sedentarism causing falls. Rehabilitation Potential: Fair - Anticipated Interventions Patient/Client Instruction: Educate patient on: Condition, Plan of Care, Risk Factors For the Purpose of:: To increase tolerance to activity/condition/position, To improve ability of physical actions for home/community/work/leisure, To improve balance, To improve safety with gait Therapeutic Exercise to Include: Strength training, Balance training, Postural training, Gait and locomotor training For the Purpose of:: To increase tolerance to activity/condition/position, To improve ability of physical actions for home/community/work/leisure, To improve safety with gait, To improve safety Thank you for the opportunity to evaluate your patient. For Medicare and Medicare HMO plans, please review the plan of care and approve it. It will need to be FAXED BACK to us at [phone] for Medicare purposes. For Medicare only, by signing this I certify the plan of care. Please let me know if there are questions or concerns regarding this plan of care. Physician Signature: Date:
--- NOTE | 2019-05-21 09:46 | HP.PT.NRP ---
HP - Discharge Summary (1) - Patient Information DMITRY SILVA was seen in my office for initial evaluation on 03/06/19. The following Plan of Care was established for this patient: Initial Frequency: 2x /Week Initial Duration: 4-6 Weeks - Anticipated Interventions Patient/Client Instruction: Educate patient on: Condition, Plan of Care, Risk Factors For the Purpose of:: To increase tolerance to activity/condition/position, To improve ability of physical actions for home/community/work/leisure, To improve balance, To improve safety with gait Therapeutic Exercise to Include: Strength training, Balance training, Postural training, Gait and locomotor training For the Purpose of:: To increase tolerance to activity/condition/position, To improve ability of physical actions for home/community/work/leisure, To improve safety with gait, To improve safety This patient was last seen in our office 03/20/19. Pertinent comments regarding their Physical therapy will appear below: Pt seen 4 visits of POC. He called to cancel his next visit and when we called him, stated he wished to cancel the rest as he just could not do PT right now. At this point, it has been two months and I will discontinue due to nonattendance At this point I will be discontinuing this patient from physical therapy. I would be happy to see this patient again in the future if found appropriate by the physician. Thank you! Yoshi Lezama, DPT, OCS, CSCS
== END 2019-03-20 19:00 | disposition home or self-care (01) ==
LOC: PT 10:00
PROVIDERS: Family Provider Family Medicine; PCP Family Medicine; Referring Provider Anesthesiology Pain Medicine; Visit Provider Anesthesiology Pain Medicine
DX: R29.6 Repeated falls (principal)
CPT/HCPCS: 97110; 97116; 97163

== ENCOUNTER → 2019-03-23 | Outpatient (CLI) | payer MEDICARE, OTHER, SELFPAY ==
[2019-03-05 09:45] VITALS: BMI 46.3
[2019-03-23 13:05] LABS: Amphetamine Urine VISTA NEGATIVE (<1000 ng/mL); Barbiturate Urine VISTA NEGATIVE (< 200 ng/mL); Benzodiazepine Urine VISTA NEGATIVE (< 200 ng/mL); Cocaine Urine VISTA NEGATIVE (< 300 ng/mL); Ecstacy Urine VISTA POSITIVE (< 500 ng/mL); Methadone Urine VISTA NEGATIVE (< 300 ng/mL); PCP Urine VISTA NEGATIVE (< 25 ng/mL); THC Urine VISTA NEGATIVE (< 50 ng/mL); Vista UDS pH Range 6
== END | disposition home or self-care (01) ==
LOC: LAB 11:43
PROVIDERS: Family Provider Family Medicine; PCP Family Medicine; Referring Provider Anesthesiology Pain Medicine; Visit Provider Anesthesiology Pain Medicine
DX: F11.20 Opioid dependence, uncomplicated (principal)
CPT/HCPCS: 80307

== ENCOUNTER 2019-04-06 05:22 | Emergency (ER) | payer MEDICARE, OTHER, SELFPAY ==
[2019-03-05 09:45] VITALS: BMI 46.3
[2019-04-06 05:24] VITALS: BP 165/91; PULSE 64; RESP 16; TEMP 36.4; O2SAT 95; BMI 45.4
--- NOTE | 2019-04-06 05:46 | ED.VIS.GEN ---
History of Present Illness Chief Complaint: General Illness Informant: Patient Narrative: Stated for last 2 days he has been having left hip groin pain with movement. He stated he has no pain at rest but when he tries to get up and walk he has a deep pain in this area. He has not felt this before. He does have degenerative disc disease in his low back. He had an MRI couple years ago. There is nothing surgical per patient. He takes gabapentin for peripheral neuropathy and recently saw a neurologist. He is being transitioned to Lyrica and is now solely on Lyrica and thinks this might be the cause. Patient takes hydrocodone but only when he needs it as needed approximately 2 tablets/day. This is something that he has been doing for his back and hip and his left knee. He does see pain management and received lumbar injections in the past with minimal relief. It does not hurt to move his leg at rest. He can bend at the knee and not reproduce any pain. The patient also can push on the area and does not feel any pain. It is only when he tries to ambulate. He does have a walker. - Past Medical History (1) Essential (primary) hypertension Status: Chronic (2) Hyperlipidemia Status: Chronic (3) Lower extremity edema Status: Chronic (4) Non-rheumatic aortic stenosis Status: Chronic Comment: TAVR w/ 29 mm Zamora Izzy S3 07/28/2018 (5) H/O aortic valve replacement Status: Resolved Comment: TAVR w/ 29 mm Zamora Izzy S3 07/28/2018 Past Medical History - Allergies and Home Meds Allergies/Adverse Reactions: Allergies No Known Allergies Allergy (Verified 03/05/19 09:46) Primary Care Physician: Diony Barber III, MD [Primary Care Provider] - Prior records reviewed: Yes Past Medical History: - - See problem list Surgical History: - - ankle fracture, prostate surg. Smoking Status: Former smoker Alcohol: None Drugs: None Review of Systems General: Denies: Chills, Fever, Sweats Eyes: Denies: Visual changes - bilaterally, Diplopia ENT: Denies: Rhinorrhea, Sore throat Cardiovascular: Denies: Chest pain, Palpitations Respiratory: Denies: Dyspnea, Cough, Dyspnea on exertion Gastrointestinal: Denies: Abdominal pain, Nausea, Vomiting, Diarrhea, Melena, Hematochezia Genitourinary: Denies: Dysuria, Hematuria, Frequency Musculoskeletal: Reports: Extremity Pain - See HPI. Denies: Back pain Skin: Denies: Rash, Wounds Neurological: Denies: Headache, Weakness, Numbness Physical Exam Vital Signs/Narrative: Vital Signs Temp Pulse Resp BP Pulse Ox 04/06/19 05:24 97.5 F L 64 16 165/91 H 95 General: Well nourished, Well developed, No Acute Distress Head: Normocephalic, Atraumatic Eyes: Perrl, EOMI ENT: Moist mucous membranes, No rhinorrhea Neck: Supple, Nontender Cardiovascular: Regular rate, Regular rhythm, No murmurs Respiratory: No distress, CTA bilaterally, Chest nontender Abdomen: Soft, Nontender, Nondistended, Normal bowel sounds Back: Nontender, Normal Inspection, - - Able to reproduce the left groin pain with trying to sit up and movements Extremities: Nontender, No edema Skin: Normal color, No rash Neurological: Alert, Oriented x3, Cranial nerves II-XII grossly intact, Normal Strength, Normal Sensation Psychological: Normal affect, Normal Mood Diagnostic/Tx/Re-eval - Medical Decision Making At this time I think this may be a lumbar radiculopathy with referred pain to the left groin. There is no hernia. There is no pain with range of motion of the hip. I do not feel it needs an x-ray. Patient given injection of morphine and Norflex. He has hydrocodone at home. He will increase the dosing of this. He is going to reach out to his neurologist and discuss the change he made from gabapentin to Lyrica. Perhaps this is causing worsening pain. I do not feel he needs advanced imaging. He may need outpatient MRI. ED Disposition - Plan for ED Patient: Disposition: Home or Assisted Living Diagnosis: Lumbar radiculopathy Instructions: Causes of Lumbar (Low Back) Pain Referrals: Diony Barber III, MD [Primary Care Provider] -
[2019-04-06] MEDS: Morphine 4 MG/ML Syringe IM (05:52)
[2019-04-06] MEDS: Orphenadrine 60 MG/2 ML Ampul IM (05:52)
[2019-04-06] MEDS: Morphine 4 MG/ML Syringe SC (07:20)
== END 2019-04-06 08:25 | disposition home or self-care (01) ==
PROVIDERS: Emergency Provider Emergency Medicine; Family Provider Family Medicine; PCP Family Medicine
DX: M54.16 Radiculopathy, lumbar region (principal); I10 Essential (primary) hypertension; E78.5 Hyperlipidemia, unspecified; Z79.899 Other long term (current) drug therapy
CPT/HCPCS: 96372; 99284

== ENCOUNTER → 2019-04-13 09:55 | Outpatient (CLI) | payer MEDICARE, OTHER, SELFPAY ==
[2019-04-13 09:33] VITALS: BMI 45.4
--- NOTE | 2019-04-13 09:57 | RAD_ITS ---
STUDY: X-RAY - RIGHT KNEE REASON FOR EXAM: Male, 74 years old. Pain. TECHNIQUE: 4 view(s) of the knee. COMPARISON: None. FINDINGS: There is demineralization of the visualized distal femur. There is demineralization of the tibia and fibula. Normal proximal tibiofibular articulation. There is no demonstrated fracture. There is moderate degenerative arthrosis of the medial femorotibial compartment with moderate joint space narrowing. There is mild degenerative arthrosis of the lateral femorotibial compartment. There is moderate degenerative arthrosis of the patellofemoral articulation. There is a soft tissue prominence in the suprapatellar region suggesting a small volume joint effusion. The soft tissue structures are unremarkable. RAD/Knee 4 or More Views IMPRESSION: Degenerative arthrosis. Electronically Signed: Luis A Granados MD at 8:54 EST , Service support ,
== END ==
PROVIDERS: Family Provider Family Medicine; PCP Family Medicine; Referring Provider Orthopaedic Surgery; Visit Provider Orthopaedic Surgery
DX: M25.561 Pain in right knee (principal)
CPT/HCPCS: 73564

== ENCOUNTER 2019-04-14 06:58 | Outpatient (RCR) | payer SELFPAY ==
[2019-04-13 09:33] VITALS: BMI 45.4
== END 2019-05-12 23:59 ==
LOC: CR 06:58
PROVIDERS: Family Provider Family Medicine; PCP Family Medicine; Referring Provider Internal Medicine Cardiovascular Disease; Visit Provider Internal Medicine Cardiovascular Disease
DX: Z00.00 Encounter for general adult medical examination without abnormal findings (principal)

== ENCOUNTER 2019-05-19 06:35 | Outpatient (RCR) | payer SELFPAY ==
[2019-04-13 09:33] VITALS: BMI 45.4
== END 2019-06-12 23:59 ==
LOC: CR 06:35
PROVIDERS: Family Provider Family Medicine; PCP Family Medicine; Visit Provider Internal Medicine Cardiovascular Disease
DX: Z00.00 Encounter for general adult medical examination without abnormal findings (principal)

== ENCOUNTER → 2019-06-03 12:09 | Outpatient (CLI) | payer MEDICARE, OTHER, SELFPAY ==
[2019-04-13 09:33] VITALS: BMI 45.4
--- NOTE | 2019-06-03 12:16 | RAD_ITS ---
STUDY: X-RAY - LUMBOSACRAL SPINE REASON FOR EXAM: Male, 74 years old. LOW BACK PAIN TECHNIQUE: 9 view(s) of the lumbosacral spine were obtained. COMPARISON: 08/28/2016 FINDINGS: Normal lumbar lordosis. There is no substantial scoliosis. There is normal alignment of the vertebrae. There is multilevel endplate spondylosis of the lumbar vertebrae. There is multi-level degenerative disc disease with multi-level disc space narrowing. Normal bilateral sacral ala, sacroiliac joints, and visualized sacrum. Normal visualized soft tissue structures. RAD/L/S Spine Comp/w Bending Views IMPRESSION: Degenerative changes of the spine, as detailed above. Electronically Signed: Jose Bella DO at 21:50 EST Tel , Service support ,
== END ==
PROVIDERS: PCP Family Medicine
DX: M54.5 Low back pain (principal)
CPT/HCPCS: 72114

== ENCOUNTER 2019-06-16 06:44 | Outpatient (RCR) | payer SELFPAY ==
[2019-04-13 09:33] VITALS: BMI 45.4
== END 2019-07-11 23:59 ==
LOC: CR 06:44
PROVIDERS: Family Provider Family Medicine; PCP Family Medicine; Referring Provider Internal Medicine Cardiovascular Disease; Visit Provider Internal Medicine Cardiovascular Disease
DX: Z00.00 Encounter for general adult medical examination without abnormal findings (principal)

== ENCOUNTER → 2019-07-25 | Outpatient (CLI) | payer MEDICARE, OTHER, SELFPAY ==
[2019-04-13 09:33] VITALS: BMI 45.4
[2019-07-25 08:20] LABS: Absolute Lymphocyte Count 1.78 X10^3/uL (0.83-4.51); Absolute Neutrophil Count 4.8 X10^3/uL (2.0-7.7); Basophil# 0.03 X10^3/uL; Basophil% 0.4 % (0-1); Eosinophil# 0.18 X10^3/uL; Eosinophils% 2.4 % (0-5); Hematocrit 41.7 % (40-54); Hemoglobin 13.1 g/dL (13.0-16.5); Lymphocyte # 1.78 X10^3/ul (4.0); Lymphocyte % 23.7 % (19-41); Mean Corp Hgb Conc 31.4 g/dL (32-36); Mean Corpuscular Hgb 29.4 pg (27.0-32.0); Mean Corpuscular Volume 93.7 fL (80-94); Mean Platelet Vol. 11.3 fl (6.2-12.0); Monocyte# 0.67 X10^3/uL; Monocyte% 8.9 % (0-10); NRBC Flagged by Analyzer 0 % (0-5); Neutrophil % 63.8 % (47-70); Platelet Count 181 K/mm3 (150-450); RBC Distribution Width CV 15.3 % (11.6-14.6); Red Blood Count 4.45 M/mm3 (4.6-6.2); White Blood Count 7.5 K/mm3 (4.4-11.0)
[2019-07-25 08:36] LABS: Hemoglobin A1c 7.8 % (4.2-6.3)
[2019-07-25 08:41] LABS: Microalbumin:Creatinine Ratio 57.3 mg/g CRE (<30 mg/g CRE)
[2019-07-25 09:31] LABS: ALB/GLOB Ratio 0.9 RATIO (0.9-2.4); AST(SGOT) 41 U/L (15-37); Alanine Aminotransfer ALT/SGPT 52 U/L (16-61); Albumin, Serum 3.7 g/dL (3.2-5.0); Alkaline Phosphatase 62 U/L (45-117); Anion Gap 7 (5-15); BUN 19 mg/dL (7-18); BUN/Creat Ratio 16.7 RATIO (10-20); Calcium,Total 9.4 mg/dL (8.5-10.1); Chloride 105 mmol/L (98-107); Cholesterol 164 mg/dL (200); Creatinine, Serum 1.14 mg/dL (0.70-1.30); EST Glomerular Filtration Rate 67 mL/min (>60); Est Glom Filt Rate - Afr Amer 80 mL/min (>60); Free T3 2.1 pg/mL (2.18-3.98); Glucose 153 mg/dL (74-106); High Density Lipoprotein 44 mg/dL; Iron 41 ug/dL (65-175); Iron Binding Capacity,Total 363 ug/dL (250-450); Potassium 3.7 mmol/L (3.5-5.1); Protein, Total 7.7 g/dL (6.4-8.2); Sodium Level 139 mmol/L (136-145); Thyroid Stim Hormone (TSH) 3.58 uIU/mL (0.358-3.74); Triglycerides 154 mg/dL; Very Low Density Lipoprotein 31 mg/dL (5-40)
[2019-07-27 10:56] LABS: Vitamin B12 1011 pg/mL (211-911); Vitamin D,25 Hydroxy 32.5 ng/mL
[2019-07-29 05:06] LABS: Vitamin B1, Thiamine 163.9 nmol/L (66.5-200.0)
[2019-07-29 17:51] LABS: Transferrin 288 mg/dL (200-370); Zinc, Plasma or Serum 110 ug/dL (56-134)
== END | disposition home or self-care (01) ==
LOC: LAB 07:30
PROVIDERS: PCP Family Medicine; Referring Provider Pediatrics; Visit Provider Pediatrics
DX: E11.40 Type 2 diabetes mellitus with diabetic neuropathy, unspecified (principal); E66.01 Morbid (severe) obesity due to excess calories; G47.33 Obstructive sleep apnea (adult) (pediatric); I10 Essential (primary) hypertension; E11.42 Type 2 diabetes mellitus with diabetic polyneuropathy; Z86.79 Personal history of other diseases of the circulatory system; E03.8 Other specified hypothyroidism; E78.2 Mixed hyperlipidemia; M15.0 Primary generalized (osteo)arthritis; F32.9 Major depressive disorder, single episode, unspecified
CPT/HCPCS: 36415; 80053; 80061; 82043; 82306; 82570; 82607; 82746; 83036; 83540; 83550; 84425; 84443; 84466; 84481; 84630; 85025

== ENCOUNTER 2019-09-15 06:50 | Outpatient (RCR) | payer SELFPAY ==
[2019-04-13 09:33] VITALS: BMI 45.4
== END 2019-10-11 23:59 ==
LOC: CR 06:50
PROVIDERS: Family Provider Family Medicine; PCP Family Medicine; Referring Provider Internal Medicine Cardiovascular Disease; Visit Provider Internal Medicine Cardiovascular Disease
DX: Z00.00 Encounter for general adult medical examination without abnormal findings (principal)

== ENCOUNTER 2019-09-17 14:43 | Inpatient (IN) | payer MEDICARE, OTHER, SELFPAY ==
[2019-04-13 09:33] VITALS: BMI 45.4
[2019-09-17 14:43] VITALS: BP 136/68; PULSE 77; RESP 22; TEMP 36.2; O2SAT 97; BMI 46.3
[2019-09-17 14:54] VITALS: BP 136/68; RESP 18; O2SAT 93
--- NOTE | 2019-09-17 15:19 | ED.VISSUMM ---
- ER Visit Summary Date of Service: 09/17/19 Chief Complaint: Fall History of Present Illness: The patient is a 74 M who presents after a fall that occurred today. Patient states he had injections of his back by Dr. Estrella earlier today. Patient states that after this his legs gave out on him and he fell. Patient states he normally walks with a walker. Patient states his legs feel weak. Patient denies any paresthesias. Patient states he hit his head but denies any loss of consciousness. Currently, patient denies any pain. Patient denies any fevers or chills. Patient denies any bowel or bladder changes. Physical Examination: Vital signs are stable. Patient is afebrile. Patient is in no acute distress. Oral mucosa is pink and moist. Neck is supple. Trachea is midline. There is no JVD. Heart was regular rate and rhythm. Lungs are clear and equal bilaterally. Abdomen is soft. Bowel sounds are normal. There is no tenderness. Cranial nerves II through XII are intact. Strength is 5/5 bilaterally in the upper and lower extremities. Sensation is intact light touch bilaterally in the lower extremities. Deep tendon reflexes were 1+/4 bilaterally in the lower extremities. Test Results: X-rays of the lumbar spine were obtained. There are degenerative changes but no acute abnormality. MRI of the lumbar spine was obtained. There is neuroforaminal stenosis and narrowing but no acute abnormality. There was no change compared to previous MRI. These were interpreted by the radiologist and reviewed by myself. Emergency Department Course and Treatment: Patient attempted ambulation with a walker but was very unsteady on his feet. I am worried that the patient may fall if he goes home. Case was discussed with the hospitalist. He will admit the patient to the hospital. Patient understood and was agreeable with the plan. All questions were answered. Disposition: Admit to hospital Impression: 1. Lower extremity weakness 2. Inability to ambulate This note was generated with [employer] dictation software. It may contain incorrect words, spelling, and punctuation that were not noted in review of the chart prior to signing ED Disposition - Plan for ED Patient: Disposition: Acute Care Hospital [facility] Diagnosis: Lower extremity weakness, Unable to ambulate Referrals: Diony Barber III, MD [Primary Care Provider] -
--- NOTE | 2019-09-17 15:50 | RAD_ITS ---
STUDY: X-RAY - LUMBAR SPINE REASON FOR EXAM: Male, 74 years old. PT HAD INJECTIONS BY DR CERDA TODAY. WHEN GOT HOME, HAD MUSCLE WEAKNESS. BOTH LEGS BUCKLED PT FELL TO FLOOR TECHNIQUE: 3 view(s) of the lumbar spine were obtained. COMPARISON: Prior lumbar spine radiographs of June 03, 2019 FINDINGS: Reduced lumbar lordosis. There is no substantial scoliosis. Slight degenerative retrolisthesis of L3. No significant alignment changes from prior exam. Normal vertebral body height without fracture. Advanced degenerative disc related findings and spondylitic endplate changes at all lumbar levels. Vascular calcifications. RAD/Lumbar Spine 2 or 3 Views IMPRESSION: No acute findings or changes of the lumbar spine. Reduced lumbar lordosis without a substantial scoliosis. Slight degenerative retrolisthesis of L3. Advanced degenerative disc and joint changes. Negative for fracture, osteolytic or blastic bone lesions. Electronically Signed: Vale Chaves MD at 16:09 EDT , Service support ,
--- NOTE | 2019-09-17 16:45 | MRI_ITS ---
STUDY: MRI LUMBAR SPINE WITH AND WITHOUT CONTRAST REASON FOR EXAM: Male, 74 years old. steroid inj today, c/o leg weakness x 1 yr TECHNIQUE: Standardized fat and water weighted pulse sequences were obtained in the sagittal and axial planes. IV DOTAREM 30CC was administered for the contrast portion of the examination. COMPARISON: Radiograph lumbar spine September 17, 2019 and MR lumbar spine September 17, 2016 FINDINGS: T12-L1: Normal endplates. Normal disc height, hydration and morphology. Normal bilateral facet joints. Normal central canal and bilateral lateral recesses. Normal bilateral intervertebral neural foramina. Normal lumbar lordosis. There is no substantial scoliosis. Normal conus medullaris that terminates at the L1 level. L1-2: Normal endplates. Normal disc height, hydration and morphology. Normal bilateral facet joints. Normal central canal and bilateral lateral recesses. Normal bilateral intervertebral neural foramina. Small central posterior disc marginal osteophyte. L2-3: Normal endplates. Normal disc height, hydration and morphology. Normal bilateral facet joints. Normal central canal and bilateral lateral recesses. Normal bilateral intervertebral neural foramina. L3-4: Normal endplates. Normal disc height, hydration and morphology. Normal bilateral facet joints. Normal central canal and bilateral lateral recesses. narrowed bilateral intervertebral neural foramina. Slight retrolisthesis. L4-5: Small posterior broad-based disc protrusion and moderate narrowing of the neural foramina bilaterally. Central thecal sac is patent. L5-S1: Normal endplates. Decreased disc height, hydration and morphology. Normal bilateral facet joints. Normal central canal and bilateral lateral recesses. Narrowed bilateral intervertebral neural foramina. Normal visualized sacral ala. Normal visualized paraspinous soft tissue structures. MRI/Spine Lumbar W/WO Contrast IMPRESSION: Multilevel degenerative disc disease and neural foraminal narrowing with no significant interval change. Electronically Signed: Xavier Dye MD at 19:43 EDT , Service support ,
[2019-09-17 17:15] LABS: Absolute Neutrophil Count 5.9 X10^3/uL (2.0-7.7); Basophil# 0.03 X10^3/uL; Basophil% 0.4 % (0-1); Eosinophil# 0.07 X10^3/uL; Eosinophils% 0.9 % (0-5); Hematocrit 39.8 % (40-54); Hemoglobin 12.3 g/dL (13.0-16.5); Lymphocyte % 14.6 % (19-41); Mean Corp Hgb Conc 30.9 g/dL (32-36); Mean Corpuscular Hgb 29.4 pg (27.0-32.0); Mean Corpuscular Volume 95.2 fL (80-94); Mean Platelet Vol. 10.8 fl (6.2-12.0); Monocyte# 0.41 X10^3/uL; Monocyte% 5.4 % (0-10); NRBC Flagged by Analyzer 0 % (0-5); Platelet Count 178 K/mm3 (150-450); RBC Distribution Width CV 15.5 % (11.6-14.6); RBC Distribution Width SD 53.7 fl (35.1-43.9); Red Blood Count 4.18 M/mm3 (4.6-6.2); White Blood Count 7.6 K/mm3 (4.4-11.0)
[2019-09-17 17:26] LABS: Anion Gap 7 (5-15); BUN 19 mg/dL (7-18); Chloride 105 mmol/L (98-107); Creatinine, Serum 1.19 mg/dL (0.70-1.30); EST Glomerular Filtration Rate 63 mL/min (>60); Est Glom Filt Rate - Afr Amer 77 mL/min (>60); Estimated Creatinine Clearance 58.87 ml/min; Glucose 149 mg/dL (74-106); Potassium 4.3 mmol/L (3.5-5.1); Sodium Level 139 mmol/L (136-145)
[2019-09-17 19:35] VITALS: BP 143/72; PULSE 69; RESP 16; O2SAT 92
[2019-09-17 20:43] VITALS: BP 143/72; PULSE 69; RESP 16; TEMP 36.4; O2SAT 92
[2019-09-17 21:26] VITALS: RESP 14
[2019-09-17 22:05] VITALS: BP 144/72; PULSE 65; RESP 20; TEMP 36.5; O2SAT 95
[2019-09-17 22:13] VITALS: BMI 45.1
[2019-09-17 22:27] VITALS: BMI 45.1
--- NOTE | 2019-09-17 23:18 | PCM.HP.STD ---
Problem List (1) Lower extremity weakness Status: Acute Qualifiers: Laterality: bilateral Qualified Code(s): R29.898 - Other symptoms and signs involving the musculoskeletal system (2) Unable to ambulate Status: Acute History of Present Illness Date of Admission: 09/17/19 Chief Complaint: Lower extremity weakness, inability to ambulate The patient is a 74 year old M who was seen in the emergency room at [facility] with chief complaint of bilateral leg weakness and inability to ambulate. Patient denies any numbness in his lower extremities, patient underwent an epidural injection today at pain management (Dr. Estrella ) and he states after returning home it became harder and harder for him to ambulate-he admits to using a walker at home. Work-up in the emergency room included labs which showed a hemoglobin of 12.3, BUN was 19, glucose was 149. Patient had an MRI of his lumbar spine which showed no acute process, there was noted to be multilevel degenerative disc disease and neural foraminal narrowing with no significant interval change as compared with previous MRI performed September 2016. Patient will be admitted to [place] [id number] for lower extremity weakness, he will be seen by PT and OT, it may be necessary for him to go to short-term to a half-way facility. Past Medical History Past Medical History (Chronic Problems): Chronic Problems (Last Reviewed 03/05/19 @ 10:[address] Bart Amado MD) Non-rheumatic aortic stenosis (Chronic) TAVR w/ 29 mm Zamora Izzy S3 07/28/2018 Essential (primary) hypertension (Chronic) Hyperlipidemia (Chronic) Lower extremity edema (Chronic) Medical History: Medical History (Last Reviewed 03/05/19 @ 10:[address] Bart Amado MD) Non-rheumatic aortic stenosis (Chronic) I35.0 TAVR w/ 29 mm Zamora Izzy S3 07/28/2018 Essential (primary) hypertension (Chronic) I10 Hyperlipidemia (Chronic) E78.5 Hypothyroidism E03.9 Morbid obesity E66.01 Obstructive sleep apnea G47.33 Osteoarthritis M19.90 Peripheral autonomic neuropathy G90.9 Type 2 diabetes mellitus E11.9 Chest pain (Resolved) R07.9 Postural hypotension I95.1 Allergies No Known Allergies Allergy (Verified 09/17/19 14:50) Home Medications: Ambulatory Orders Medication Instructions Recorded Aspirin E.C. [Ecotrin] 81 mg PO DAILY@0800 06/18/13 metFORMIN HCl [Glucophage] 1,000 mg PO BID 06/18/13 Finasteride [Proscar] 5 mg PO DAILY 01/11/15 Cholecalciferol (Vitamin D3) 1,000 unit PO DAILY 12/03/16 [Vitamin D3] bupropion HCl 300 mg 24 hr tablet, 300 mg PO QAM 11/04/17 extended release Oxygen, Home [Home Oxygen] 2 lpm NASAL QHS 09/18/18 vit C 250 mg-E 200 unit-zinc 40 1 tab PO BID 10/02/18 mg-copper 1 [id number] capsule buspirone 5 mg tablet 5 mg PO BID 90 Days #180 tab 03/05/19 Omeprazole 40 mg PO DAILY 04/06/19 Pregabalin [Lyrica] 300 mg PO BID 04/06/19 Sertraline HCl [Zoloft] 50 mg PO DAILY 04/06/19 hydrochlorothiazide 25 mg tablet 25 mg PO DAILY tab 08/28/19 Amlodipine [Norvasc] 10 mg PO DAILY 09/17/19 Atenolol [Tenormin (Beta Breanna)] 50 mg PO DAILY 09/17/19 Levothyroxine [Synthroid] 175 mcg PO DAILY 09/17/19 Lisinopril [Zestril] 40 mg PO DAILY 09/17/19 Simvastatin [Zocor] 20 mg PO QHS 09/17/19 Surgical History: Surgical History (Last Reviewed 03/05/19 @ 10:[address] Bart Amado MD) H/O aortic valve replacement (Resolved) Onset Date: 07/28/18 Z95.2 TAVR w/ 29 mm Zamora Izzy S3 07/28/2018 History of carpal tunnel release Z98.890 History of open reduction and internal fixation (ORIF) procedure Z98.890 right ankle History of prostate surgery Z98.890 History of right and left heart catheterization Onset Date: 11/29/17 Z98.890 Ankle fracture, right S82.891A Surgical History: - - ankle fracture, prostate surg., TAVR procedure Psychiatric History: No pertinent psych hx Lives: Alone Smoking Status: Never smoker Tobacco Use: Non-smoker Alcohol: None Drugs: None - *Family History Maternal Family History: Family History (Last Reviewed 03/05/19 @ 10:[address] Bart Amado MD) Father Colon cancer Brother CAD (coronary artery disease) Diabetes Sister Diabetes Mother Heart disease History Items: Heart Disease Paternal Family History: Family History (Last Reviewed 03/05/19 @ 10:[address] Bart Amado MD) Father Colon cancer Brother CAD (coronary artery disease) Diabetes Sister Diabetes Mother Heart disease History Items: Cancer - Prostate cancer Review of Systems Constitutional: Reports: Weakness - In the lower legs. Denies: Anorexia, Chills, Fever, Night Sweats, Malaise, Weight Change Eyes: Denies: Cataracts, Conjunctivae Inflammation, Double vision, Drainage HEENT: Denies: Difficulty Swallowing, Dysphasia, Ear Pain, Eye Pain, Nasal bleeding, Nasal Congestion, Post Nasal Drip Cardiovascular: Denies: Chest Pain, Claudication, Chest Pressure, Chest Tightness, Palpitations Respiratory: Denies: Cough, Hemoptysis, Pleuritic Pain, Shortness of Breath, Shortness of breath at rest, Shortness of breath upon exertion Gastrointestinal: Denies: Abdominal Pain, Constipation, Diarrhea, Hematemesis, Hematochezia, Nausea, Melena, Vomiting Genitourinary: Denies: Dysuria, Frequency, Hematuria, Hesitancy, Nocturia, Retention, Urgency Musculoskeletal: Reports: Back Pain - Chronic back pain. Denies: Joint Pain, Joint stiffness, Joint swelling Skin: Denies: Dryness, Pruritis, Rash Neurological: Reports: - - Weakness in the lower extremities. Denies: Blurred vision, Double vision, Change in Speech, Slurred speech, Difficulty swallowing, Focal weakness, Headaches, Numbness, Tingling Psychiatric: Denies: Anxiety, Depression, Homicidal Ideations, Suicidal Ideations Endocrine: Denies: Change in Body Habitus, Heat/ Cold Intolerance, Polydipsia, Polyuria Hematologic/ Lymphatic: Denies: Adenopathy, Anemia, Easy Bruising, Easy Bleeding, Petechiae, Purpura VTE Information - Inpt Only VTE Present on Admission: No VTE Mechan Device Prophylaxis: None VTE Pharm Prophylaxis ordered?: Yes Patient Problems: Active and Suspected Problems (Last Reviewed 03/05/19 @ 10:[address] Bart Amado MD) Lower extremity weakness (Acute) Unable to ambulate (Acute) - Physical Exam Vitals/I&O's: Vital Signs Temp Pulse Resp BP Pulse Ox 97.6 F L 69 14 143/72 H 92 09/17/19 20:43 09/17/19 20:43 09/17/19 21:26 09/17/19 20:43 09/17/19 20:43 Oxygen Delivery Method Room Air Weight: 151 kg Body Mass Index (BMI) 45.1 General: Alert, Oriented x3, Cooperative, No apparent distress, Well developed, Well nourished HEENT: Atraumatic, PERRLA, EOMI, Normocephalic Oral: Moist Mucosa Neck: Supple, No JVD, Negative Carotid Bruits, No Nuchal Rigidity, Trachea Midline, Thyroid Normal Size and Texture Lungs: Clear to auscultation, Normal air movement, No rhonchi, No wheeze, No rales Cardiovascular: Regular rate, Regular Rhythm, Normal S1, Normal S2, No murmurs, PMI Normal, No rub noted, No Gallop Abdomen: Bowel Sounds Present, Soft, Non Tender, Non-Distended, Obese Extremities: No clubbing, No cyanosis, Capillary Refill Less than 3 Seconds, Edema - +2 to 3 mm pitting edema is noted over both lower legs-worse in the ankle areas Skin: No rashes, No breakdown Musculoskeletal: No Tenderness to Palpation of Joints or Extremities Neurological: Cranial nerves II-XII grossly intact, Neuro grossly intact, Sensory exam intact to light touch and pain Psych/Mental Status: Normal Affect, Appropriate, Alert and oriented to time, place, person, mood and affect Laboratory Results 09/17/19 17:08: WBC 7.6, RBC 4.18 L, Hgb 12.3 L, Hct 39.8 L, MCV 95.2 H, MCH 29.4, MCHC 30.9 L, RDW Std Deviation 53.7 H, RDW Coeff of Bob 15.5 H, Plt Count 178, MPV 10.8, Immature Gran % (Auto) 0.700, Neut % (Auto) 78.0 H, Lymph % (Auto) 14.6 L, [place] % (Auto) 5.4, Eos % (Auto) 0.9, Baso % (Auto) 0.4, Absolute Neuts (auto) 5.9, Absolute Lymphs (auto) 1.10, Nucleated RBC % 0 09/17/19 17:08: Sodium 139, Potassium 4.3, Chloride 105, Carbon Dioxide 27.0, Anion Gap 7, BUN 19 H, Creatinine 1.19, Estim Creat Clear Calc 58.87, Est GFR (MDRD) Af Amer 77, Est GFR (MDRD) Non-Af 63, BUN/Creatinine Ratio 16.0, Glucose 149 H, Calcium 9.0 Current Medications Acetaminophen (Tylenol) 650 mg PO Q6H PRN PRN PRN Reason: Pain Score 1-10/Temp > 100.7 F Hydrocodone Bitart/Acetaminophen ([place] 5mg-325mg) 1 tablet PO Q6H PRN PRN PRN Reason: Pain Score 1-10/10 Amlodipine Besylate (Norvasc) 10 mg PO DAILY [facility] Aspirin (Ecotrin) 81 mg PO DAILY@0800 [facility] Atenolol (Tenormin (Beta Breanna)) 50 mg PO DAILY [facility] Atorvastatin Calcium (Lipitor) 5 mg PO QHS [facility] Buspirone HCl (Buspar) 10 mg PO QHS [facility] Dextrose (D50w Syringe) 0 gm IV X1 PRN; Protocol PRN Reason: Hypoglycemia Finasteride (Proscar) 5 mg PO DAILY [facility] Glucagon () 1 mg IM .X1 PRN PRN Reason: Hypoglycemia Heparin Sodium (Porcine) (Heparin Na) 5,000 unit SC Q12 [facility] Hydrochlorothiazide (Hctz) 25 mg PO DAILY [facility] Insulin Human Lispro (Humalog Kwikpen (Bkc)) 0 unit SC ACHS [facility]; Protocol Levothyroxine Sodium (Synthroid) 175 mcg PO DAILY@0600 [facility] Lisinopril (Zestril) 40 mg PO DAILY [facility] Metformin HCl (Glucophage) 1,000 mg PO BIDCM [facility] Pantoprazole Sodium (Protonix) 40 mg PO DAILY [facility] Pregabalin (Lyrica) 150 mg PO BID [facility]TE Sertraline HCl (Zoloft) 50 mg PO DAILY [facility] Assessment/Plan All Active Problems (Last Reviewed 03/05/19 @ 10:[address] Bart Amado MD) Lower extremity weakness (Acute) Unable to ambulate (Acute) H/O aortic valve replacement (Resolved 07/28/18) Chest pain (Resolved) #1 lower extremity weakness with inability to ambulate-etiology unclear, patient will be admitted to [facility], he will be seen by PT and OT, he may need short-term placement in a half-way facility for rehab services-patient lives by himself, he admits to using a walker at home. #2 degenerative disc disease of the lumbar spine #3 obstructive sleep apnea-patient does not know his BiPAP settings, I have elected to place him on BiPAP, I have estimated settings for this patient, he does use 2 L of oxygen at night with the BiPAP. #4 essential hypertension #5 lower extremity edema-possibly secondary to use of Lyrica, patient states he takes 300 mg of Lyrica twice a day, I have elected to cut this down to 150 mg twice a day and see if the patient is able to tolerate this lower dose. #6 class III obesity Inpatient E&M: 01552 Init Hosp L3
[2019-09-17] MEDS: metFORMIN HCl 1,000 MG Tablet 1000 MG PO (23:32)
[2019-09-17] MEDS: Pregabalin 75 MG Capsule 150 MG PO (23:32)
[2019-09-18] MEDS: Atorvastatin Calcium 10 MG Tablet 5 MG PO (00:26)
[2019-09-18] MEDS: busPIRone 5 MG Tablet 10 MG PO (00:27)
[2019-09-18 00:44] VITALS: PULSE 95; RESP 12; RESP 22; O2SAT 95
[2019-09-18 00:46] LABS: Bedside Glucose 154 mg/dL (70-110)
[2019-09-18 03:58] VITALS: PULSE 96; RESP 12; RESP 18; O2SAT 95
[2019-09-18 04:00] VITALS: BP 136/78; PULSE 56; RESP 18; TEMP 36.4; O2SAT 98
[2019-09-18] MEDS: Levothyroxine 175 MCG Tablet PO (06:17)
[2019-09-18] MEDS: Insulin Lispro 100 UNIT/ML INSULN.PEN SC ×2 (06:25→11:52)
[2019-09-18 06:26] LABS: Bedside Glucose 153 mg/dL (70-110)
[2019-09-18 07:41] VITALS: BP 131/79; PULSE 58; RESP 16; TEMP 36.6; O2SAT 97
[2019-09-18] MEDS: metFORMIN HCl 1,000 MG Tablet 1000 MG PO (07:58)
[2019-09-18] MEDS: Aspirin E.C. 81 MG Tablet PO (07:58)
[2019-09-18] MEDS: HYDROcodone Bitartrate/Apap 5/325 Tablet PO (07:58)
[2019-09-18] MEDS: hydroCHLOROthiazide 25 MG Tablet PO (10:09)
[2019-09-18] MEDS: Heparin Injection (Vial) 5,000 UNIT/ML VIAL 5000 UNIT SC (10:09)
[2019-09-18] MEDS: amLODIPine 10 MG Tablet PO (10:10)
[2019-09-18] MEDS: Finasteride 5 MG Tablet PO (10:10)
[2019-09-18] MEDS: Pantoprazole Sodium 40 MG Tablet PO (10:11)
[2019-09-18] MEDS: Atenolol 50 MG Tablet PO (10:11)
[2019-09-18] MEDS: Sertraline 50 MG Tablet PO (10:12)
[2019-09-18] MEDS: Lisinopril 40 MG Tablet PO (10:12)
[2019-09-18] MEDS: Pregabalin 75 MG Capsule 150 MG PO (10:15)
[2019-09-18 11:11] LABS: Bedside Glucose 158 mg/dL (70-110)
--- NOTE | 2019-09-18 11:49 | DCINST_ITS ---
- Discharge Diagnoses Current Active Problems: Current Active and Chronic Problems (Last Reviewed 03/05/19 @ 10:[address] Bart Amado MD) Lower extremity weakness (Acute) Unable to ambulate (Acute) You will use the following diet at home:: Calorie/Carbohydrate Controlled (specify 1200, 1400, etc), Cardiac Discharge Activity: Return to Normal Activity Call your doctor if you observe: Shortness of breath, Dizziness, Fainting spells, Chest pain Allergies/Adverse Reactions: Allergies No Known Allergies Allergy (Verified 09/17/19 14:50) Medications to take at Discharge Aspirin E.C. [Ecotrin] 81 mg PO DAILY@0800 06/18/13 metFORMIN HCl [Glucophage] 1,000 mg PO BID 06/18/13 Finasteride [Proscar] 5 mg PO DAILY 01/11/15 Cholecalciferol (Vitamin D3) [Vitamin D3] 1,000 unit PO DAILY 12/03/16 bupropion HCl 300 mg 24 hr tablet, extended release 300 mg PO QAM 11/04/17 Oxygen, Home [Home Oxygen] 2 lpm NASAL QHS 09/18/18 vit C 250 mg-E 200 unit-zinc 40 mg-copper 1 [id number] capsule 1 tab PO BID 10/02/18 Omeprazole 40 mg PO DAILY 04/06/19 Sertraline HCl [Zoloft] 50 mg PO DAILY 04/06/19 hydrochlorothiazide 25 mg tablet 25 mg PO DAILY tab 08/28/19 Amlodipine [Norvasc] 10 mg PO DAILY 09/17/19 Atenolol [Tenormin (beta bernadine)] 50 mg PO DAILY 09/17/19 Levothyroxine [Synthroid] 175 mcg PO DAILY 09/17/19 Lisinopril [Zestril] 40 mg PO DAILY 09/17/19 Simvastatin [Zocor] 20 mg PO QHS 09/17/19 Pregabalin [Lyrica] 150 mg PO BID capsule 09/18/19 busPIRone [Buspar] 10 mg PO QHS tablet 09/18/19 Primary Care Physician: Diony Barber III, MD [Primary Care Provider] - Please follow up with your Primary Care Physician in: 1 Week Test Results: Test results from this visit will be discussed in further detail at your follow- up appointment, if applicable. Please Follow Up With: Patrica Estrella MD When: As scheduled Please Follow Up With: Bart Amado MD When: As scheduled Proposed Discharge Date: 09/18/19
--- NOTE | 2019-09-18 11:54 | PCM.DC.SUM ---
<Kitty Senior - Last Filed: 09/18/19 12:04> Discharge Date and Diagnosis Date of Admission: 09/17/19 Date of Discharge: 09/18/19 - Primary Discharge Diagnosis Active and Suspected Problems (Last Reviewed 03/05/19 @ 10:[address] Bart Amado MD) 1. Transient lower extremity weakness, following IV sedation due to lumbar back injection 2. Degenerative disc disease of the lumbar spine, chronic back pain 3. BETTE 4. Hypertension 5. Hyperlipidemia 6. GERD 7. Hypothyroidism 8. Type 2 diabetes mellitus with peripheral neuropathy 9. Depression/anxiety 10. BPH - Secondary Discharge Diagnosis Chronic Problems (Last Reviewed 03/05/19 @ 10:[address] Bart Amado MD) Non-rheumatic aortic stenosis (Chronic) TAVR w/ 29 mm Zamora Izzy S3 07/28/2018 Essential (primary) hypertension (Chronic) Hyperlipidemia (Chronic) Lower extremity edema (Chronic) Hospital Course and Treatment Imaging Results: Diagnostic Data Lumbar Spine X-Ray 09/17/19 15:50 IMPRESSION: No acute findings or changes of the lumbar spine. Reduced lumbar lordosis without a substantial scoliosis. Slight degenerative retrolisthesis of L3. Advanced degenerative disc and joint changes. Negative for fracture, osteolytic or blastic bone lesions. Electronically Signed: Vale Chaves MD at 16:09 EDT , Service support , Lumbar Spine MRI 09/17/19 16:45 IMPRESSION: Multilevel degenerative disc disease and neural foraminal narrowing with no significant interval change. Electronically Signed: Xavier Dye MD at 19:43 EDT , Service support , Operations: None Procedures: None Summary of Care Provided: The patient is a 74 year old M admitted 09/17/2019 due to lower extremity weakness and inability to ambulate. 1. Transient lower extremity weakness, following IV sedation due to lumbar back injection-patient reports he received IV sedation to knock him out during lumbar back injection. He reports he was discharged in a wheelchair and his friend brought him home. Upon entering his home he states his legs felt weak and gave out on him. He now feels at his baseline and has no further lower extremity weakness. Lumbar spine MRI showed multilevel degenerative disc disease and neural foraminal narrowing with no significant interval change. Patient would like to return home. Awaiting PT eval, if PT feels patient is safe for discharge home will discharge at that time. Patient has home health and PT services already established. Feel patient may have had reaction to IV sedation causing transient lower extremity weakness. Follow-up with primary care physician in 1 week. 2. Degenerative disc disease of the lumbar spine, chronic back pain-continue PT, follow-up with pain management. 3. BETTE-continue home BiPAP, nightly supplemental oxygen regimen. 4. Hypertension-stable, continue current medications. 5. Hyperlipidemia-continue statin. 6. GERD-continue PPI. 7. Hypothyroidism-continue Synthroid regimen. 8. Type 2 diabetes mellitus with peripheral neuropathy-continue home oral regimen. Lyrica regimen reduced to 150 mg p.o. twice daily. 9. Depression/anxiety-continue bupropion, buspirone, sertraline. 10. BPH-continue finasteride regimen. Patient seen and examined prior to discharge. Physical assessment as noted below. Patient is stable for discharge with follow up recommendations as noted above. This patient was seen by YAJAIRA Coburn under the supervision of Dr. Vazquez. - Physical Exam Vitals/I&O's: Vital Signs Temp Pulse Resp BP Pulse Ox 97.8 F 58 L 16 131/79 H 97 09/18/19 07:41 09/18/19 07:41 09/18/19 07:41 09/18/19 07:41 09/18/19 07:41 Oxygen Delivery Method Room Air Weight: 332 lb 14.368 oz Body Mass Index (BMI) 45.1 Intake and Output for Last 24 Hours 09/16/19 09/17/19 09/18/19 23:59 23:59 23:59 Output Total 825 / 825 Balance -825 / -825 General: Alert, Oriented x3, Cooperative HEENT: Atraumatic, PERRLA, EOMI, Normocephalic Neck: Supple, No JVD, Negative Carotid Bruits Lungs: Clear to auscultation, Diminished Cardiovascular: Regular rate, Regular Rhythm, Normal S1, Normal S2, No murmurs Abdomen: Bowel Sounds Present, Soft, Non Tender, Non-Distended, Obese Extremities: No clubbing, No cyanosis, Edema - non-pitting BLLE Skin: No rashes, No breakdown Musculoskeletal: No Tenderness to Palpation of Joints or Extremities Neurological: Cranial nerves II-XII grossly intact, Neuro grossly intact Psych/Mental Status: Normal Affect, Appropriate Laboratory Results 09/17/19 17:08: WBC 7.6, RBC 4.18 L, Hgb 12.3 L, Hct 39.8 L, MCV 95.2 H, MCH 29.4, MCHC 30.9 L, RDW Std Deviation 53.7 H, RDW Coeff of Bob 15.5 H, Plt Count 178, MPV 10.8, Immature Gran % (Auto) 0.700, Neut % (Auto) 78.0 H, Lymph % (Auto) 14.6 L, [place] % (Auto) 5.4, Eos % (Auto) 0.9, Baso % (Auto) 0.4, Absolute Neuts (auto) 5.9, Absolute Lymphs (auto) 1.10, Nucleated RBC % 0 09/17/19 17:08: Sodium 139, Potassium 4.3, Chloride 105, Carbon Dioxide 27.0, Anion Gap 7, BUN 19 H, Creatinine 1.19, Estim Creat Clear Calc 58.87, Est GFR (MDRD) Af Amer 77, Est GFR (MDRD) Non-Af 63, BUN/Creatinine Ratio 16.0, Glucose 149 H, Calcium 9.0 09/18/19 00:37: POC Glucose 154 H 09/18/19 06:19: POC Glucose 153 H 09/18/19 10:52: POC Glucose 158 H Current Medications Acetaminophen (Tylenol) 650 mg PO Q6H PRN PRN PRN Reason: Pain Score 1-10/Temp > 100.7 F Hydrocodone Bitart/Acetaminophen (Geronimo 5mg-325mg) 1 tablet PO Q6H PRN PRN PRN Reason: Pain Score 1-10/10 Last Admin: 09/18/19 07:58 Dose: 1 tablet Documented by: Amlodipine Besylate (Norvasc) 10 mg PO DAILY [facility] Last Admin: 09/18/19 10:10 Dose: 10 mg Documented by: Aspirin (Ecotrin) 81 mg PO DAILY@0800 [facility] Last Admin: 09/18/19 07:58 Dose: 81 mg Documented by: Atenolol (Tenormin (Beta Breanna)) 50 mg PO DAILY [facility] Last Admin: 09/18/19 10:11 Dose: 50 mg Documented by: Atorvastatin Calcium (Lipitor) 5 mg PO QHS [facility] Last Admin: 09/18/19 00:26 Dose: 5 mg Documented by: Buspirone HCl (Buspar) 10 mg PO QHS [facility] Last Admin: 09/18/19 00:27 Dose: 10 mg Documented by: Dextrose (D50w Syringe) 0 gm IV X1 PRN; Protocol PRN Reason: Hypoglycemia Finasteride (Proscar) 5 mg PO DAILY [facility] Last Admin: 09/18/19 10:10 Dose: 5 mg Documented by: Glucagon () 1 mg IM .X1 PRN PRN Reason: Hypoglycemia Heparin Sodium (Porcine) (Heparin Na) 5,000 unit SC Q12 [facility] Last Admin: 09/18/19 10:09 Dose: 5,000 unit Documented by: Hydrochlorothiazide (Hctz) 25 mg PO DAILY [facility] Last Admin: 09/18/19 10:09 Dose: 25 mg Documented by: Insulin Human Lispro (Humalog Kwikpen (Bkc)) 0 unit SC ACHS [facility]; Protocol Last Admin: 09/18/19 11:52 Dose: 2 u Documented by: Levothyroxine Sodium (Synthroid) 175 mcg PO DAILY@0600 [facility] Last Admin: 09/18/19 06:17 Dose: 175 mcg Documented by: Lisinopril (Zestril) 40 mg PO DAILY [facility] Last Admin: 09/18/19 10:12 Dose: 40 mg Documented by: [facility] ([facility]) [facility] Last Admin: 09/18/19 07:58 Dose: 1,000 mg Documented by: Pantoprazole Sodium (Protonix) 40 mg PO DAILY [facility] Last Admin: 09/18/19 10:11 Dose: 40 mg Documented by: Pregabalin (Lyrica) 150 mg PO BID [facility] Last Admin: 09/18/19 10:15 Dose: 150 mg Documented by: Sertraline HCl (Zoloft) 50 mg PO DAILY [facility] Last Admin: 09/18/19 10:12 Dose: 50 mg Documented by: Discharge Diet: Low fat/ Low Cholesterol, Carb Control Diet Discharge Activity: Return to Normal Activity Call your doctor if you observe: Shortness of breath, Dizziness, Fainting spells, Chest pain Home Medications: Medications to take at Discharge Aspirin E.C. [Ecotrin] 81 mg PO DAILY@0800 06/18/13 metFORMIN HCl [Glucophage] 1,000 mg PO BID 06/18/13 Finasteride [Proscar] 5 mg PO DAILY 01/11/15 Cholecalciferol (Vitamin D3) [Vitamin D3] 1,000 unit PO DAILY 12/03/16 bupropion HCl 300 mg 24 hr tablet, extended release 300 mg PO QAM 11/04/17 Oxygen, Home [Home Oxygen] 2 lpm NASAL QHS 09/18/18 vit C 250 mg-E 200 unit-zinc 40 mg-copper 1 [id number] capsule 1 tab PO BID 10/02/18 Omeprazole 40 mg PO DAILY 04/06/19 Sertraline HCl [Zoloft] 50 mg PO DAILY 04/06/19 hydrochlorothiazide 25 mg tablet 25 mg PO DAILY tab 08/28/19 Amlodipine [Norvasc] 10 mg PO DAILY 09/17/19 Atenolol [Tenormin (beta breanna)] 50 mg PO DAILY 09/17/19 Levothyroxine [Synthroid] 175 mcg PO DAILY 09/17/19 Lisinopril [Zestril] 40 mg PO DAILY 09/17/19 Simvastatin [Zocor] 20 mg PO QHS 09/17/19 Pregabalin [Lyrica] 150 mg PO BID #28 cap 09/18/19 busPIRone [Buspar] 10 mg PO QHS tab 09/18/19 Bad tablePrimary Care Physician: Diony Barber III, MD [Primary Care Provider] - Please follow up with your Primary Care Physician in: 1 Week Please Follow Up With: Patrica Estrella MD When: As scheduled Please Follow Up With: Bart Amado MD When: As scheduled Disposition: Home with Home Health Minutes spent on discharge:: 35 Patient Condition:: Stable Medical Necessity - Tobacco Use Smoking Status: Never smoker Tobacco Use: Non-smoker Meaningful Use Info Meaningful Use Diagnoses (Choose all that apply): None applicable <Anh Vazquez - Last Filed: 09/18/19 14:02> Discharge Date and Diagnosis - Secondary Discharge Diagnosis Chronic Problems (Last Reviewed 03/05/19 @ 10:[address] Bart Amado MD) Non-rheumatic aortic stenosis (Chronic) TAVR w/ 29 mm Zamora Izzy S3 07/28/2018 Essential (primary) hypertension (Chronic) Hyperlipidemia (Chronic) Lower extremity edema (Chronic) Hospital Course and Treatment Summary of Care Provided: Patient seen by YAJAIRA Coburn under my supervision. The patient is a 74 year old M with past medical history as outlined was admitted through the ED on 09/17/2019 with a complaint of lower extremity weakness and inability to ambulate. Patient had been seen earlier on the day of admission for lumbar back injection for his osteoarthritis by his pain doctor. He received IV sedation and was subsequently picked up and taken home by his friend. However when he got home he was unable to weight-bear and his legs gave out on him. He was therefore brought back and admitted as debility due to mechanical fall. Physical therapy was consulted. Lumbar spine MRI showed multilevel degenerative disc disease and neural foraminal narrowing with no significant interval change. Physical therapy evaluated patient and patient was able to ambulate well. Patient desired to be discharged home and was positive for recommended to have outpatient physical therapy twice a week. Patient was discharged on 09/18/2019 with home health care and outpatient physical therapy. He is to follow-up with his primary care doctor within 1 week. Patient seen and examined prior to discharge. He had no complaints. Review of systems otherwise negative. Labs and vitals reviewed. Home medication reviewed and reconciled. o/e: Vital Signs Temp Pulse Resp BP Pulse Ox 97.8 F 58 L 16 131/79 H 97 09/18/19 07:41 09/18/19 07:41 09/18/19 07:41 09/18/19 07:41 09/18/19 07:41 [] General: Alert, Oriented x3, Cooperative, morbidly obese HEENT: Atraumatic, PERRLA, EOMI, Normocephalic Neck: Supple, No JVD, Negative Carotid Bruits Lungs: Clear to auscultation, no wheezes or crackles. Cardiovascular: Regular rate, Regular Rhythm, Normal S1, Normal S2, No murmurs Abdomen: Bowel Sounds Present, Soft, Non Tender, Non-Distended, Obese Extremities: No clubbing, No cyanosis, nonpitting pedal edema- +1 Skin: No rashes, No breakdown Musculoskeletal: No Tenderness to Palpation of Joints or Extremities Neurological: Cranial nerves II-XII grossly intact, Neuro grossly intact Psych/Mental Status: Normal Affect, Appropriate Plan as above. - Physical Exam Vitals/I&O's: Vital Signs Temp Pulse Resp BP Pulse Ox 97.8 F 58 L 16 131/79 H 97 09/18/19 07:41 09/18/19 07:41 09/18/19 07:41 09/18/19 07:41 09/18/19 07:41 Oxygen Delivery Method Room Air Weight: 332 lb 14.368 oz Body Mass Index (BMI) 45.1 Intake and Output for Last 24 Hours 09/16/19 09/17/19 09/18/19 23:59 23:59 23:59 Output Total 825 / 825 Balance -825 / -825 Laboratory Results 09/17/19 17:08: WBC 7.6, RBC 4.18 L, Hgb 12.3 L, Hct 39.8 L, MCV 95.2 H, MCH 29.4, MCHC 30.9 L, RDW Std Deviation 53.7 H, RDW Coeff of Bob 15.5 H, Plt Count 178, MPV 10.8, Immature Gran % (Auto) 0.700, Neut % (Auto) 78.0 H, Lymph % (Auto) 14.6 L, [place] % (Auto) 5.4, Eos % (Auto) 0.9, Baso % (Auto) 0.4, Absolute Neuts (auto) 5.9, Absolute Lymphs (auto) 1.10, Nucleated RBC % 0 09/17/19 17:08: Sodium 139, Potassium 4.3, Chloride 105, Carbon Dioxide 27.0, Anion Gap 7, BUN 19 H, Creatinine 1.19, Estim Creat Clear Calc 58.87, Est GFR (MDRD) Af Amer 77, Est GFR (MDRD) Non-Af 63, BUN/Creatinine Ratio 16.0, Glucose 149 H, Calcium 9.0 09/18/19 00:37: POC Glucose 154 H 09/18/19 06:19: POC Glucose 153 H 09/18/19 10:52: POC Glucose 158 H Current Medications Acetaminophen (Tylenol) 650 mg PO Q6H PRN PRN PRN Reason: Pain Score 1-10/Temp > 100.7 F Hydrocodone Bitart/Acetaminophen (Geronimo 5mg-325mg) 1 tablet PO Q6H PRN PRN PRN Reason: Pain Score 1-10/10 Last Admin: 09/18/19 07:58 Dose: 1 tablet Documented by: Amlodipine Besylate (Norvasc) 10 mg PO DAILY [facility] Last Admin: 09/18/19 10:10 Dose: 10 mg Documented by: Aspirin (Ecotrin) 81 mg PO DAILY@0800 [facility] Last Admin: 09/18/19 07:58 Dose: 81 mg Documented by: Atenolol (Tenormin (Beta Breanna)) 50 mg PO DAILY [facility] Last Admin: 09/18/19 10:11 Dose: 50 mg Documented by: Atorvastatin Calcium (Lipitor) 5 mg PO QHS [facility] Last Admin: 09/18/19 00:26 Dose: 5 mg Documented by: Buspirone HCl (Buspar) 10 mg PO QHS [facility] Last Admin: 09/18/19 00:27 Dose: 10 mg Documented by: Dextrose (D50w Syringe) 0 gm IV X1 PRN; Protocol PRN Reason: Hypoglycemia Finasteride (Proscar) 5 mg PO DAILY [facility] Last Admin: 09/18/19 10:10 Dose: 5 mg Documented by: Glucagon () 1 mg IM .X1 PRN PRN Reason: Hypoglycemia Heparin Sodium (Porcine) (Heparin Na) 5,000 unit SC Q12 [facility] Last Admin: 09/18/19 10:09 Dose: 5,000 unit Documented by: Hydrochlorothiazide (Hctz) 25 mg PO DAILY [facility] Last Admin: 09/18/19 10:09 Dose: 25 mg Documented by: Insulin Human Lispro (Humalog Kwikpen (Bkc)) 0 unit SC ACHS [facility]; Protocol Last Admin: 09/18/19 11:52 Dose: 2 u Documented by: Levothyroxine Sodium (Synthroid) 175 mcg PO DAILY@0600 [facility] Last Admin: 09/18/19 06:17 Dose: 175 mcg Documented by: Lisinopril (Zestril) 40 mg PO DAILY [facility] Last Admin: 09/18/19 10:12 Dose: 40 mg Documented by: Metformin HCl (Glucophage) 1,000 mg PO BIDCM [facility] Last Admin: 09/18/19 07:58 Dose: 1,000 mg Documented by: Pantoprazole Sodium (Protonix) 40 mg PO DAILY [facility] Last Admin: 09/18/19 10:11 Dose: 40 mg Documented by: Pregabalin (Lyrica) 150 mg PO BID [facility] Last Admin: 09/18/19 10:15 Dose: 150 mg Documented by: Sertraline HCl (Zoloft) 50 mg PO DAILY [facility] Last Admin: 09/18/19 10:12 Dose: 50 mg Documented by: OBSV E&M: [id number] Observation care discharge
--- NOTE | 2019-09-18 12:44 | CASEMGMT ---
Addendum entered by Lulu Hoyt 09/18/19 13:43: SW faxed Hospital to Post-Acute COVID 19 Transfer Communication Tool to [facility]. Addendum entered by Lulu Hoyt 09/18/19 13:11: SW back in to speak with pt, informed pt that this worker really needs to know who his HHC is through. SW asked pt if he had number for a RN or agencies number and pt states he has Physical Therapist number. Pt called Physical Therapist while this worker is in pt's room. Stormy answered. Stormy states pt has HHC through [facility]. SW placed a call to [facility] which is [facility] and spoke with Yaneth. Yaneth confirms pt is active with them for HHC and will need resumption order. FRANSISCO updated Yaneth that pt is being discharged home today. SW entered HHC resumption order. FRANSISCO faxed discharge paperwork to [facility] including resumption order. Original Note: Social Work Assessment Referral Date: 09/18/2019 Date of Assessment: 09/18/2019 Reason for consult: Lower extremity weakness, may need SNF Informant: Personal Status: SW met with pt to complete initial assessment. Pt is alert and orientated x3. SW introduced self and role at [facility]. Pt states that he lives alone with a first floor apartment with no steps to enter the home. DME include cane, walker, rollator, shower rails, and raised toilet seat. PCP is Dr. Barber and Pharmacy is [facility] but states may switch to [facility]. Pt states that he has HHC with RN, and PT/OT coming to pt's home and also states he has aides that come in 2x week. Pt unable to name agency, states it is something [facility] out of [place]. SW asked pt if he has Director Surgical through [facility] and pt states they were out a few times, but no I don't have a lead case manager. Substance Abuse Hx: Pt denied Mental Health Hx: Pt states that he see's a psychiatrist every few months at [facility] who prescribes him medication. Pt states he currently takes Bupropion, Buspirone, and Sertraline. SW placed a call to [facility], confirmed that pt doesn't have CM. SW will try to figure out pt's HHC. Plan: Home with resumption of HHC and aides Lulu Hoyt PROPERTY ACCOUNTANT, EXIT BOOTH AGENT
--- NOTE | 2019-09-21 10:23 | CASEMGMT ---
THOMAS DIAZ Discharge Follow-up Phone Call: CORTNEY: Mary Strata: 3 Call Date: Discharge Date: Time of Call: Duration: 3 min Admitting Diagnosis: Lower Extremity Weakness RN EMILY completed follow-up phone call after recent hospitalization. Patient states that he is doing okay. Patient had no questions regarding discharge instructions. No prescriptions given to patient. Patient is established with [facility] and they are coming out tomorrow per patient. Patient aware to call PCP and schedule follow-up appt. Patient voice no further needs or concerns.
== END 2019-09-18 14:35 | disposition home or self-care (01) | DRG 948 ==
LOC: ED 20:45 → MS3 09-18 07:06
PROVIDERS: Admitting Provider Internal Medicine; Emergency Provider Emergency Medicine; PCP Family Medicine; Visit Provider Student in an Organized Health Care Education/Training Program
DX: R53.1 Weakness (principal); Z68.42 Body mass index [BMI] 45.0-49.9, adult; M51.36 Other intervertebral disc degeneration, lumbar region; G89.29 Other chronic pain; M54.9 Dorsalgia, unspecified; G47.33 Obstructive sleep apnea (adult) (pediatric); I10 Essential (primary) hypertension; E78.5 Hyperlipidemia, unspecified; K21.9 Gastro-esophageal reflux disease without esophagitis; E03.9 Hypothyroidism, unspecified; E11.42 Type 2 diabetes mellitus with diabetic polyneuropathy; F32.9 Major depressive disorder, single episode, unspecified; F41.9 Anxiety disorder, unspecified; N40.0 Benign prostatic hyperplasia without lower urinary tract symptoms; Z98.890 Other specified postprocedural states; R26.81 Unsteadiness on feet; E66.01 Morbid (severe) obesity due to excess calories; Z79.82 Long term (current) use of aspirin; Z79.84 Long term (current) use of oral hypoglycemic drugs; Z79.899 Other long term (current) drug therapy; R60.0 Localized edema; R53.81 Other malaise
CPT/HCPCS: 72100; 72158; 80048; 82962; 85025; 94002; 97162; 97166; 99285; A9575; A4216

== ENCOUNTER → 2019-10-20 09:21 | Outpatient (CLI) | payer MEDICARE, OTHER, SELFPAY ==
--- NOTE | 2019-10-20 09:40 | RAD_ITS ---
STUDY: X-RAY - ESOPHAGUS (BARIUM SWALLOW) WITH FLUOROSCOPY REASON FOR EXAM: Male, 74 years old. NO VOICE X6 MONTHS PER PT, NO OTHER COMPLAINTS -- 77 FLUORO SEC, 59.59mGy, 24 FLUORO IMAGES TECHNIQUE: 24 view(s) of the esophagus were obtained following swallowing of barium. FLUOROSCOPY TIME (if supplied): (1:17) minutes/seconds COMPARISON: None. FINDINGS: There is no demonstrated esophageal foreign body. There is no demonstrated stricture or mucosal abnormality. Normal gastroesophageal junction, without a demonstrated hiatal hernia. The patient ingested a 12 mm tablet of barium. The tablet was trapped at the gastroesophageal junction. There is atherosclerotic calcification of the aortic arch with tortuosity of the descending aorta. Normal visualized pulmonary parenchyma. There are diffuse degenerative changes of the visualized thoracic spine. RAD/Esophagus Dual Contrast IMPRESSION: The 12 mm tablet of barium is trapped at the gastroesophageal junction. Electronically Signed: Pradeep Kasper, at 10:43 EDT , Service support ,
== END ==
PROVIDERS: PCP Family Medicine; Referring Provider Otolaryngology; Visit Provider Otolaryngology
DX: K21.9 Gastro-esophageal reflux disease without esophagitis (principal)
CPT/HCPCS: 74221

== ENCOUNTER → 2019-10-29 10:32 | Outpatient (CLI) | payer MEDICARE, OTHER, SELFPAY | PROVIDERS: PCP Family Medicine; Referring Provider Internal Medicine Gastroenterology; Visit Provider Internal Medicine Gastroenterology | DX: Z11.59 Encounter for screening for other viral diseases (principal) | CPT/HCPCS: 87635; G2023; U0003 ==

== ENCOUNTER → 2019-11-03 | Outpatient (CLI) | payer MEDICARE, OTHER, SELFPAY ==
[2019-11-03 12:30] LABS: Amphetamine Urine VISTA NEGATIVE (<1000 ng/mL); Barbiturate Urine VISTA NEGATIVE (< 200 ng/mL); Benzodiazepine Urine VISTA NEGATIVE (< 200 ng/mL); Cocaine Urine VISTA NEGATIVE (< 300 ng/mL); Ecstacy Urine VISTA POSITIVE (< 500 ng/mL); Methadone Urine VISTA NEGATIVE (< 300 ng/mL); PCP Urine VISTA NEGATIVE (< 25 ng/mL); THC Urine VISTA NEGATIVE (< 50 ng/mL); Vista UDS pH Range 5
== END | disposition home or self-care (01) ==
LOC: LAB 11:42
PROVIDERS: PCP Family Medicine; Referring Provider Anesthesiology Pain Medicine; Visit Provider Anesthesiology Pain Medicine
DX: F11.20 Opioid dependence, uncomplicated (principal)
CPT/HCPCS: 80307

== ENCOUNTER 2020-01-30 08:22 | Emergency (ER) | payer MEDICARE, OTHER, SELFPAY ==
[2019-12-03 09:10] VITALS: BMI 43.8
[2020-01-30 08:23] VITALS: BP 170/73; PULSE 62; RESP 17; TEMP 36.4; O2SAT 96; BMI 45.4
--- NOTE | 2020-01-30 09:00 | ED.DCSUM_ITS ---
History of Present Illness Chief Complaint: Lower Extremity Injury Informant: Patient Onset: Days Timing: Continuous Narrative: 74 year old male with PMH HTN, HLD, DM2, osteoarthritis presents with complaints of right hip pain. He states he always has some back and right hip pain from osteoarthritis, but it worsened over the last several days. No fall or injury. He uses a walker at baseline. Denies increased back pain, radiculopathy, weak ness, numbness, tingling, saddle anesthesia, bowel/bladder incontinence, abdominal pain, or urinary symptoms. Past Medical History - Allergies and Home Meds Allergies/Adverse Reactions: Allergies No Known Allergies Allergy (Verified 01/30/20 08:23) Primary Care Physician: Diony Barber III, MD [Primary Care Provider] - Past Medical History: - - Hypertension, hyperlipidemia, type 2 diabetes, osteoarthritis Surgical History: - - ankle fracture, prostate surg., TAVR procedure Smoking Status: Never smoker - Family History Maternal Family History: Family History (Last Reviewed 12/03/19 @ 10:[address] Bart Amado MD) Father Colon cancer Brother CAD (coronary artery disease) Diabetes Sister Diabetes Mother Heart disease Family History: Reports: Heart Disease Paternal Family History: Family History (Last Reviewed 12/03/19 @ 10:[address] Bart Amado MD) Father Colon cancer Brother CAD (coronary artery disease) Diabetes Sister Diabetes Mother Heart disease Family History: Reports: Cancer - Prostate cancer Review of Systems General: Denies: Chills, Fever, Sweats Eyes: Denies: Visual changes - bilaterally, Diplopia ENT: Denies: Rhinorrhea, Sore throat Cardiovascular: Denies: Chest pain, Palpitations Respiratory: Denies: Dyspnea, Cough, Dyspnea on exertion Gastrointestinal: Denies: Abdominal pain, Nausea, Vomiting, Diarrhea, Melena, Hematochezia Genitourinary: Denies: Dysuria, Hematuria, Frequency Musculoskeletal: Reports: Extremity Pain. Denies: Back pain Skin: Denies: Rash, Wounds Neurological: Denies: Headache, Weakness, Parasthesia, Numbness Physical Exam Vital Signs/Narrative: Vital Signs Temp Pulse Resp BP Pulse Ox 01/30/20 08:23 97.6 F L 62 17 170/73 H 96 Inital Vital Signs reviewed: Yes General: Well nourished, Well developed Head: Normocephalic, Atraumatic Eyes: EOMI ENT: Moist mucous membranes Cardiovascular: Regular rate, Regular rhythm, No murmurs Respiratory: No distress, CTA bilaterally, Chest nontender Abdomen: Soft, Nontender, Nondistended, Normal bowel sounds Back: Nontender, Normal Inspection. Negative for: CVA tenderness Extremities: No edema, Tenderness - tender to palpation over right iliac crest/ASIS. Full hip ROM without pain, 5/5 lower extremity strength. Negative for: Calf Tenderness Skin: Normal color, No rash Neurological: Alert, Oriented x3, Cranial nerves II-XII grossly intact, Normal Strength, Normal Sensation Psychological: Normal affect, Normal Mood Diagnostic/Tx/Re-eval Clinical Impression(s) from Imaging Studies Hip/Pelvis X-Ray 01/30/20 09:11 IMPRESSION: Normal x-ray examination of the pelvis and hip. Electronically Signed: Justin Galindo MD at 9:38 EDT Tel , Service support , - Medical Decision Making Patient presented with right hip pain. He appears well and nontoxic. Vital signs unremarkable. He is neurovascularly intact on exam with normal gait with walker which is his baseline. X-ray shows no acute process. He already takes oxycodone twice daily for arthritis. He has a follow-up with pain management next week and I advised him to discuss these concerns. He was agreeable and discharged home in stable condition. ED Disposition - Plan for ED Patient: Disposition: Home or Assisted Living Diagnosis: Osteoarth NOS-pelvis Referrals: Diony Barber III, MD [Primary Care Provider] -
--- NOTE | 2020-01-30 09:11 | RAD_ITS ---
STUDY: X-RAY - PELVIS AND RIGHT HIP REASON FOR EXAM: Male, 74 years old. NKI, PAIN TECHNIQUE: 3 views of the pelvis and hip. COMPARISON: 10/09/2018 FINDINGS: There is a non-specific bowel gas pattern. Normal visualized soft tissue structures. Normal bilateral iliac wings, sacroiliac joints and visualized sacrum. Normal bilateral superior and inferior pubic rami. Normal pubic symphysis. Normal bilateral ischial tuberosities. Normal visualized femoral head. Normal acetabulum. Normal hip joint. RAD/HIP, UNI W/ Pelvis 2-3 Views IMPRESSION: Normal x-ray examination of the pelvis and hip. Electronically Signed: Justin Galindo MD at 9:38 EDT Tel , Service support ,
== END 2020-01-30 10:41 | disposition home or self-care (01) ==
PROVIDERS: Emergency Provider Physician Assistant; PCP Family Medicine
DX: M16.11 Unilateral primary osteoarthritis, right hip (principal); E78.5 Hyperlipidemia, unspecified; E11.9 Type 2 diabetes mellitus without complications; I10 Essential (primary) hypertension; Z79.84 Long term (current) use of oral hypoglycemic drugs; Z79.899 Other long term (current) drug therapy
CPT/HCPCS: 73502; 99282

== ENCOUNTER → 2020-03-08 | Outpatient (CLI) | payer MEDICARE, OTHER, SELFPAY ==
--- NOTE | 2020-03-08 16:20 | RAD_ITS ---
STUDY: X-RAY - RIGHT KNEE REASON FOR EXAM: Male, 75 years old. PRIMARY OSTEOARTHRITIS OF RIGHT KNEE TECHNIQUE: 4 view(s) of the knee. COMPARISON: 04/13/2019. FINDINGS: Normal visualized distal femur. Normal visualized proximal tibia and fibula. Normal proximal tibiofibular articulation. There is [id number] degenerative arthrosis of the medial femorotibial compartment with severe joint space narrowing. Normal lateral femorotibial compartment. There is mild degenerative arthrosis of the patellofemoral articulation. There is a soft tissue prominence in the suprapatellar region suggesting a small volume joint effusion. The soft tissue structures are unremarkable. RAD/Knee 4 or More Views IMPRESSION: Degenerative changes, as above. Small joint effusion. No demonstrated fracture, dislocation, or destructive osseous lesion. Electronically Signed: Antwan Gonzalez MD at 4:43 EDT , Service support ,
== END | disposition home or self-care (01) ==
LOC: RAD 16:01
PROVIDERS: PCP Family Medicine; Referring Provider Orthopaedic Surgery; Visit Provider Orthopaedic Surgery
DX: M17.11 Unilateral primary osteoarthritis, right knee (principal)
CPT/HCPCS: 73564

== ENCOUNTER → 2020-03-16 | Outpatient (CLI) | payer MEDICARE, OTHER, SELFPAY | END | disposition home or self-care (01) | LOC: LABSPEC 10:19 | PROVIDERS: PCP Family Medicine; Referring Provider Family Medicine; Visit Provider Family Medicine | DX: Z11.59 Encounter for screening for other viral diseases (principal) | CPT/HCPCS: 87635; C9803; U0003 ==

== ENCOUNTER 2020-05-03 14:25 | Inpatient (IN) | payer MEDICARE, OTHER, SELFPAY ==
[2020-05-03] VITALS (11 sets, daily range): BP systolic 132–148; BP diastolic 72–94; PULSE 72–94; RESP 16–19; TEMP 36.1–37.3; O2SAT 90–96; BMI 41.2; BMI 39.4
[2020-05-03 14:57] LABS: Absolute Lymphocyte Count 0.97 X10^3/uL (0.83-4.51); Absolute Neutrophil Count 5.4 X10^3/uL (2.0-7.7); Basophil# 0.02 X10^3/uL; Basophil% 0.3 % (0-1); Eosinophil# 0.11 X10^3/uL; Eosinophils% 1.6 % (0-5); Hematocrit 41.4 % (40-54); Hemoglobin 13.4 g/dL (13.0-16.5); Lymphocyte # 0.97 X10^3/ul (4.0); Lymphocyte % 13.8 % (19-41); Mean Corp Hgb Conc 32.4 g/dL (32-36); Mean Corpuscular Hgb 28.5 pg (27.0-32.0); Mean Corpuscular Volume 88.1 fL (80-94); Mean Platelet Vol. 11.2 fl (6.2-12.0); Monocyte# 0.49 X10^3/uL; NRBC Flagged by Analyzer 0 % (0-5); Neutrophil # 5.41 X10^3/uL (2.7-7.7); Neutrophil % 76.6 % (47-70); Platelet Count 235 K/mm3 (150-450); RBC Distribution Width CV 15.1 % (11.6-14.6); RBC Distribution Width SD 49.2 fl (35.1-43.9); White Blood Count 7.1 K/mm3 (4.4-11.0)
[2020-05-03] MEDS: 0.9% Normal Saline 1,000 ML 150 ML IV ×2 (14:59→19:05)
[2020-05-03] MEDS: Morphine 4 MG/ML Syringe IV (14:59)
[2020-05-03] MEDS: Ondansetron 4 MG/2 ML Vial IV (14:59)
[2020-05-03 15:14] LABS: Anion Gap 7 (5-15); BUN 34 mg/dL (7-18); BUN/Creat Ratio 30.4 RATIO (10-20); Calcium,Total 9.5 mg/dL (8.5-10.1); Chloride 113 mmol/L (98-107); Creatinine, Serum 1.12 mg/dL (0.70-1.30); EST Glomerular Filtration Rate 68 mL/min (>60); Est Glom Filt Rate - Afr Amer 82 mL/min (>60); Estimated Creatinine Clearance 61.59 ml/min; Glucose 190 mg/dL (74-106); Potassium 3.7 mmol/L (3.5-5.1); Sodium Level 142 mmol/L (136-145)
[2020-05-03 15:18] LABS: Bacteria 0 SEEN /hpf (None Seen); Mucous, Urine 0 SEEN /hpf (<or=2+); Red Blood Cells-Urine 0 SEEN /hpf (0-5); Squamous Epithelial Cells - UA 0 SEEN /hpf (0-5)
[2020-05-03 15:22] LABS: Lactic Acid 1.4 mmol/L (0.4-1.9)
[2020-05-03] MEDS: dexAMETHasone 4 MG/ML Vial 6 MG IV (15:31)
--- NOTE | 2020-05-03 15:35 | RAD_ITS ---
STUDY: X-RAY CHEST REASON FOR EXAM: Male, 75 years old. Positive COVID, mouth sores, not eating or drinking, new onset confusion, weakness, and incontinence TECHNIQUE: Single AP portable view of the chest. COMPARISON: Comparison is made with prior study dated 12/08/2015. FINDINGS: EKG electrodes are seen. Patchy infiltrates are seen in the peripheral aspect of the right upper lobe as well as in the right infrahilar region. Patchy infiltrate is also seen in the left parahilar region. There is no demonstrated pleural abnormality. There is borderline cardiomegaly. Normal mediastinum and nicholas. Normal visualized pulmonary arteries. There is atherosclerotic calcification of the aortic arch with tortuosity. There are diffuse degenerative changes of the visualized thoracic spine. Normal visualized ribs, clavicles, and shoulders. There is no demonstrated abnormality of the visualized soft tissue structures of the upper abdomen. RAD/Chest 1 View (Portable) IMPRESSION: Patchy bilateral infiltrates as described. Electronically Signed: Pradeep Kasper, at 15:55 EST , Service support ,
[2020-05-03 15:39] LABS: Color, Urine Yellow (Yellow); Glucose, Dipstick 1000 mg/dl (Normal); Leukocyte Esterase-Dipstick 500 /ul (Negative); Nitrite-Dipstick Positive (Negative); Occult Blood-Urine 250 /ul (Negative); Protein-Dipstick 500 mg/dl (Negative); Specific Gravity, Urine 1.015 (1.002-1.030); Urine Clarity Clear (Clear); Urine Urobilinogen 8 mg/dl (Normal)
[2020-05-03 15:41] LABS: Urine Bilirubin Dipstick 6 mg/dL (Negative)
[2020-05-03 15:42] LABS: Ketone-Dipstick 150 mg/dl (Negative)
--- NOTE | 2020-05-03 15:43 | ED.DCSUM_ITS ---
- ER Visit Summary Date of Service: 05/03/20 Chief Complaint: [Generalized weakness] History of Present Illness: The patient is a 75 M [presents to the emergency department from [facility] via EMS. Patient diagnosed with COVID-19 on April 29. Patient has not been eating or drinking therefore he had a PICC line placed to receive IV fluids. He is complaining of throat pain and apparently has lesions on his throat and in his mouth. Patient was started on oxygen at the [facility]. He denies significant dyspnea. He denies chest pain. Patient has history of aortic stenosis, hypertension, and high cholesterol. Patient has had an aortic valve replaced.] Physical Examination: [HEENT-PERRLA, EOMI. Cranial nerves II through XII grossly intact. TMs clear. Mucous membranes dry. No adenopathy. Patient has shallow ulcerations noted on the soft palate and oropharynx. Cardiovascular-regular rate and rhythm with 2 out of 6 systolic ejection murmur, no ectopy Lungs-clear to auscultation, chest wall stable without crepitus or subcu emphysema Abdomen-normoactive bowel sounds, soft, nontender, no rebound or rigidity, no peritoneal signs. Extremities-intact ?4, normal range of motion, normal pulses, atraumatic] Test Results: [EKG obtained arrival shows sinus rhythm with a ventricular rate of 81 bpm with no acute segment changes. CBC with differential showed a white of 7.1, hemoglobin 13, hematocrit 41, platelets 235. Sodium was 142, potassium 3.7, chloride 113, CO2 22, glucose 190, BUN 34 and creatinine 1.12. Troponin was 0.091.] Chest x-ray obtained read by myself as bilateral patchy infiltrates. Radiology in agreement. Emergency Department Course and Treatment: [IV line was established. Patient was given normal saline. Patient medicated with morphine and Zofran for pain. Patient was given Decadron 6 mg IV. Nasal cannula O2.] Treatment Plan: [Admit] Disposition: [Admit] Impression: [Covid pneumonia Hypoxemia Generalized weakness Dehydration ] This note was generated with [employer] software. It may contain incorrect words, spelling, and punctuation that were not noted in review of the chart nelson or to signing ED Disposition - Plan for ED Patient: Referrals: Diony Barber III, MD [STAFF PHYSICIAN] -
[2020-05-03 15:58] LABS: Hyaline Cast 0-5 SEEN /lpf (0-5); White Blood Cells 0-5 SEEN /hpf (0-5)
--- NOTE | 2020-05-03 17:23 | HP.PCM_ITS ---
Problem List (1) COVID-19 Status: Acute (2) Stomatitis Status: Acute (3) Non-rheumatic aortic stenosis Status: Chronic (4) H/O aortic valve replacement Status: Resolved Comment: TAVR w/ 29 mm Zamora Izzy S3 07/28/2018 (5) Essential (primary) hypertension Status: Chronic (6) Hyperlipidemia Status: Chronic (7) Lower extremity edema Status: Chronic (8) Lower extremity weakness Status: Chronic Qualifiers: History of Present Illness Date of Admission: 05/03/20 Chief Complaint: sore mouth, failure to thrive. The patient is a 75 year old M sent [facility]. Patient was diagnosed with COVID-19 on April 29. Patient was complaining of throat pain and not eating or drinking. PICC line was placed in his right upper extremity to give him IV fluids. Patient started on treatment for COVID-19. It was felt that given the patient's COVID-19, the patient's reticence to eat or drink and his mouth sores have the best to the brother bring the patient in for further evaluation. [] Past Medical History Past Medical History (Chronic Problems): Chronic Problems (Last Reviewed 12/03/19 @ 10:[address] Bart Amado MD) Non-rheumatic aortic stenosis (Chronic) Essential (primary) hypertension (Chronic) Hyperlipidemia (Chronic) Lower extremity edema (Chronic) Lower extremity weakness (Chronic) Medical History: Medical History (Last Reviewed 05/03/20 @ 17:[address] Yoshi Phillip DO) Non-rheumatic aortic stenosis (Chronic) I35.0 Essential (primary) hypertension (Chronic) I10 Hyperlipidemia (Chronic) E78.5 Lower extremity edema (Chronic) R60.0 Lower extremity weakness (Chronic) R29.898 Hypothyroidism E03.9 Morbid obesity E66.01 Obstructive sleep apnea G47.33 Osteoarthritis M19.90 Peripheral autonomic neuropathy G90.9 Type 2 diabetes mellitus E11.9 Chest pain (Resolved) R07.9 Unable to ambulate (Resolved) R26.2 Postural hypotension I95.1 Allergies No Known Allergies Allergy (Verified 05/03/20 14:34) Home Medications: Ambulatory Orders Medication Instructions Recorded Aspirin E.C. [Ecotrin] 81 mg PO DAILY@0800 06/18/13 Finasteride [Proscar] 15 mg PO DAILY 01/11/15 bupropion HCl 300 mg 24 hr tablet, 300 mg PO DAILY 11/04/17 extended release Sertraline HCl [Zoloft] 50 mg PO DAILY 04/06/19 buspirone 10 mg tablet 10 mg PO TID tab 12/03/19 glimepiride 1 mg tablet 1 mg PO DAILY tab 12/03/19 levothyroxine 200 mcg tablet 200 mcg PO DAILY tab 12/03/19 metoprolol succinate 100 mg 100 mg PO DAILY tab 12/07/19 tablet,extended release 24 hr Albuterol Sulfate [Proair 2 puff INHALATION TID 05/03/20 Respiclick] Ascorbic Acid 500 mg PO BID 05/03/20 Cholecalciferol (Vitamin D3) 1,000 unit PO DAILY 05/03/20 [Vitamin D3] Levothyroxine Sodium [Synthroid] 400 mcg PO DENNY 05/03/20 Lisinopril [Zestril] 20 mg PO DAILY 05/03/20 Melatonin 10 mg PO QHS 05/03/20 Multivitamin 1 tab PO DAILY 05/03/20 Nystatin 5 ml PO BID 05/03/20 Nystatin [Nystop] 1 applic TP BID 05/03/20 Omeprazole 40 mg PO DAILY 05/03/20 Vit C/E/Zn/Coppr/Lutein/Zeaxan 1 cap PO DAILY 05/03/20 [Preservision Areds 2 Softgel] Zinc 50 mg PO DAILY 05/03/20 dexAMETHasone [Dexamethasone] 6 mg PO DAILY 05/03/20 Surgical History: Surgical History (Last Reviewed 05/03/20 @ 17:[address] Yoshi Phillip, DO) H/O aortic valve replacement (Resolved) Onset Date: 07/28/18 Z95.2 TAVR w/ 29 mm Zamora Izzy S3 07/28/2018 History of carpal tunnel release Z98.890 History of open reduction and internal fixation (ORIF) procedure Z98.890 right ankle History of prostate surgery Z98.890 History of right and left heart catheterization Onset Date: 11/29/17 Z98.890 Ankle fracture, right S82.891A Surgical History: - - ankle fracture, prostate surg., TAVR procedure Psychiatric History: No pertinent psych hx Smoking Status: Never smoker Tobacco Use: Non-smoker - *Family History Maternal Family History: Family History (Last Reviewed 05/03/20 @ 17:[address] Yoshi Phillip DO) Father Colon cancer Brother CAD (coronary artery disease) Diabetes Sister Diabetes Mother Heart disease History Items: Heart Disease Paternal Family History: Family History (Last Reviewed 05/03/20 @ 17:[address] Yoshi Phillip DO) Father Colon cancer Brother CAD (coronary artery disease) Diabetes Sister Diabetes Mother Heart disease History Items: Cancer - Prostate cancer Review of Systems Constitutional: Denies: Anorexia, Fever, Night Sweats Eyes: Denies: Blurred vision, Double vision HEENT: Denies: Head Aches, Sinus Congestion, Sinus Drainage Cardiovascular: Denies: Chest Pain, Palpitations Respiratory: Reports: Shortness of Breath. Denies: Cough, Sputum production Gastrointestinal: Denies: Abdominal Pain, Nausea, Vomiting Genitourinary: Denies: Dysuria Musculoskeletal: Denies: Joint Pain, Joint Tenderness Skin: Denies: Rash, Wounds Psychiatric: Denies: Anxiety, Depression Hematologic/ Lymphatic: Denies: Easy Bruising, Easy Bleeding, Hx of blood clot Comment: All review of systems were negative except as mentioned above in the history of present illness and the other review of systems. VTE Information - Inpt Only VTE Present on Admission: No VTE Mechan Device Prophylaxis: None VTE Pharm Prophylaxis ordered?: Yes - Physical Exam Vitals/I&O's: Vital Signs Temp Pulse Resp BP Pulse Ox 36.2 C L 73 18 146/72 H 96 05/03/20 17:00 05/03/20 17:00 05/03/20 17:00 05/03/20 17:00 05/03/20 17:00 Oxygen Flow Rate (L/min) 2 Oxygen Delivery Method Nasal Cannula Weight: 137.9 kg Body Mass Index (BMI) 41.2 General: Alert, Oriented x3, Cooperative, No apparent distress HEENT: Atraumatic, Normocephalic Oral: Dry Mucosa - Very dry throughout his whole oral mucosa. Neck: No Nodes, Thyroid Normal Size and Texture Lungs: Normal air movement, - - Bibasilar crackles Cardiovascular: Regular rate, Regular Rhythm, Normal S1, Normal S2, No murmurs Abdomen: Bowel Sounds Present, Soft, Non Tender, Non-Distended, No Hepato- splenomegaly, Passing Flatus Extremities: No edema, No Calf Tenderness Skin: No rashes, No breakdown Musculoskeletal: No Tenderness to Palpation of Joints or Extremities, No Muscle Wasting Lymphatic: No Cervical, Supraclavicular, or Inguinal Adenopathy, Cervical Adenopathy Neurological: Deep Tendon Reflexes 2+/4 and Symmetrical, - - No clonus Psych/Mental Status: Normal Affect, Appropriate Laboratory Results 05/03/20 14:43: WBC 7.1, RBC 4.70, Hgb 13.4, Hct 41.4, MCV 88.1, MCH 28.5, MCHC 32.4, RDW Std Deviation 49.2 H, RDW Coeff of Bob 15.1 H, Plt Count 235, MPV 11.2, Immature Gran % (Auto) 0.700, Neut % (Auto) 76.6 H, Lymph % (Auto) 13.8 L, Grant % (Auto) 7.0, Eos % (Auto) 1.6, Baso % (Auto) 0.3, Absolute Neuts (auto) 5.4, Absolute Lymphs (auto) 0.97, Nucleated RBC % 0 05/03/20 14:43: Sodium 142, Potassium 3.7, Chloride 113 H, Carbon Dioxide 22.0, Anion Gap 7, BUN 34 H, Creatinine 1.12, Estim Creat Clear Calc 61.59, Est GFR (MDRD) Af Amer 82, Est GFR (MDRD) Non-Af 68, BUN/Creatinine Ratio 30.4 H, Glucose 190 H, Calcium 9.5, Troponin I 0.091 H 05/03/20 14:52: Lactic Acid 1.4 05/03/20 15:11: Urine Color Yellow, Urine Clarity Clear, Urine pH 7.0, Ur Specific [place] 1.015, Urine Protein 500 H, Urine Glucose (UA) 1000 H, Urine Ketones 150 H, Urine Occult Blood 250 H, Urine Nitrite Positive H, Urine Bilirubin 6 H, Urine Urobilinogen 8 H, Ur Leukocyte Esterase 500 H, Urine RBC 0 SEEN, Urine WBC 0-5 SEEN, Ur Squamous Epith Cells 0 SEEN, Urine Bacteria 0 SEEN, Hyaline Casts 0-5 SEEN, Urine Mucus 0 SEEN Chest x-ray reviewed and showed bilateral patchy infiltrates. Current Medications Sodium Chloride () 1,000 mls @ 150 mls/hr IV .[id number] [facility] Last Admin: 05/03/20 14:59 Dose: 150 mls/hr Documented by: Assessment/Plan All Active Problems (Last Reviewed 12/03/19 @ 10:[address] Bart Amado MD) COVID-19 (Acute) Stomatitis (Acute) H/O aortic valve replacement (Resolved 07/28/18) Chest pain (Resolved) Unable to ambulate (Resolved) 1. Acute COVID-19 pneumonia * Symptoms testing was established on the * Patient was initiated on dexamethasone at his facility. Continue with a 6 mg for a total of 10 days. * Start remdesivir 2. Stomatitis * This does not appear to be any kind of allergic reaction such as Thakur- Renny's. * I feel is primarily with patient is being profoundly dehydrated * Cautious use of IV fluids given the above diagnosis. Patient [facility] his [facility] * Viscous lidocaine, Biotene mouthwash * Full liquid diet for now 3. Diabetes mellitus type 2 * Hold glyburide * Sliding scale insulin 4. Failure to thrive * Secondary to Covid, stomatitis and dehydration * Supportive management at this time 5. Chronic conditions * Hypothyroid: Continue with levothyroxine * Depression: Continue with antidepressives * Intertrigo: Continue with nystatin powder 6. VTE prophylaxis: High risk: Continue with enoxaparin. Inpatient E&M: 93894 Init Hosp L3
--- NOTE | 2020-05-03 17:39 | PCS.PANDOC ---
PANDEMIC DOCUMENTATION INITIATED: Date: 05/03/2020 Time: 0220
[2020-05-03 19:44] LABS: D-Dimer Quantitative (DVT/PE) 4.57 FEU/ug/m (0.27-0.49)
[2020-05-03 20:05] LABS: Alkaline Phosphatase 68 U/L (45-117)
[2020-05-03 20:11] LABS: Procalcitonin 0.11 ng/mL (0.00-0.09)
[2020-05-03] MEDS: Enoxaparin 30 MG/0.3 ML Syringe SC (20:15)
[2020-05-03] MEDS: NYSTATIN 500,000 UNIT/5 ML UDC 500000 UNIT PO (20:16)
[2020-05-03] MEDS: Saliva Substitute 237 ML BOTTLE 15 ML MM (20:25)
[2020-05-03] MEDS: Ascorbic Acid 500 MG Tablet PO (20:28)
[2020-05-03] MEDS: busPIRone 5 MG Tablet 10 MG PO (20:28)
[2020-05-03] MEDS: MELATONIN 10 MG TABLET PO (20:28)
--- NOTE | 2020-05-03 20:59 | CT_ITS ---
STUDY: CTA CHEST REASON FOR EXAM: Male, 75 years old. ELEV. D-DIMER, COVID, THROAT PAIN, DEHYDRATION, HX HTN, DIAB RADIATION DOSAGE (If Supplied By Facility): CTDIvol = ( 21.43 ) mGy, DLP = ( 813.61 ) mGycm TECHNIQUE: The examination was performed with the intravenous administration of 89 mL ISOVUE-370. Post-processing of the angiographic images was performed, with multiplanar reformation and 3D reconstruction. Individualized dose optimization techniques were used for this CT. COMPARISON: Chest x-ray 05/03/2020 FINDINGS: Normal enhancement of the main pulmonary artery and right and left pulmonary arteries. Normal enhancement of the bilateral peripheral pulmonary arteries. There is no demonstrated pulmonary embolism. Normal thoracic aorta and visualized great vessels. There is no demonstrated aortic dissection. Normal heart and pericardium. Calcific coronary artery disease. Endovascular aortic valve. Prominent nonspecific mediastinal lymphadenopathy. Normal hilar regions. Normal visualized trachea and bronchi. multifocal perihilar and peripheral groundglass opacities. Normal pulmonary parenchyma. Normal pleura. Normal chest wall structures. Normal osseous structures. Normal visualized upper abdomen. CT/CTA Chest W/WO Contrast IMPRESSION: High-grade multifocal groundglass opacities typical for covid 19 other etiologies not excluded. Endovascular aortic valve and coronary artery disease. Electronically Signed: Xavier Dye MD at 23:17 EST , Service support ,
[2020-05-03 22:31] LABS: Bedside Glucose 254 mg/dL (70-110)
[2020-05-04] VITALS (11 sets, daily range): BP systolic 138–154; BP diastolic 74–89; PULSE 67–82; RESP 17–20; TEMP 36.8–37.2; O2SAT 92–94
--- NOTE | 2020-05-04 03:00 | NURSING ---
took tylenol in for pt but refused at this time. thrown away in room.
[2020-05-04 06:00] LABS: Absolute Lymphocyte Count 0.84 X10^3/uL (0.83-4.51); Absolute Neutrophil Count 3.9 X10^3/uL (2.0-7.7); Basophil# 0.01 X10^3/uL; Basophil% 0.2 % (0-1); Hematocrit 37.8 % (40-54); Hemoglobin 12.4 g/dL (13.0-16.5); Lymphocyte # 0.84 X10^3/ul (4.0); Lymphocyte % 16.2 % (19-41); Mean Corp Hgb Conc 32.8 g/dL (32-36); Mean Corpuscular Hgb 29.2 pg (27.0-32.0); Mean Corpuscular Volume 89.2 fL (80-94); Mean Platelet Vol. 11.3 fl (6.2-12.0); Monocyte# 0.39 X10^3/uL; Monocyte% 7.5 % (0-10); NRBC Flagged by Analyzer 0 % (0-5); Neutrophil # 3.87 X10^3/uL (2.7-7.7); Neutrophil % 74.7 % (47-70); Platelet Count 225 K/mm3 (150-450); RBC Distribution Width CV 15.3 % (11.6-14.6); Red Blood Count 4.24 M/mm3 (4.6-6.2); White Blood Count 5.2 K/mm3 (4.4-11.0)
[2020-05-04 06:44] LABS: ALB/GLOB Ratio 0.7 RATIO (0.9-2.4); AST(SGOT) 47 U/L (15-37); Alanine Aminotransfer ALT/SGPT 44 U/L (16-61); Albumin, Serum 2.6 g/dL (3.2-5.0); Alkaline Phosphatase 61 U/L (45-117); Anion Gap 8 (5-15); BUN 27 mg/dL (7-18); BUN/Creat Ratio 26.7 RATIO (10-20); Calcium,Total 8.5 mg/dL (8.5-10.1); Chloride 113 mmol/L (98-107); Creatinine, Serum 1.01 mg/dL (0.70-1.30); EST Glomerular Filtration Rate 76 mL/min (>60); Est Glom Filt Rate - Afr Amer 92 mL/min (>60); Estimated Creatinine Clearance 68.29 ml/min; Globulin 3.7 g/dL (2.2-4.2); Glucose 202 mg/dL (74-106); Potassium 4.1 mmol/L (3.5-5.1); Protein, Total 6.3 g/dL (6.4-8.2); Sodium Level 142 mmol/L (136-145)
[2020-05-04] MEDS: busPIRone 5 MG Tablet 10 MG PO ×3 (06:58→20:01)
[2020-05-04] MEDS: Saliva Substitute 237 ML BOTTLE 15 ML MM ×3 (08:31→23:00)
[2020-05-04 08:41] LABS: Bedside Glucose 166 mg/dL (70-110)
--- NOTE | 2020-05-04 08:45 | CASEMGMT ---
FRANSISCO reviewed chart, pt is here from [facility]. FRANSISCO called [facility], spoke w/Janna, pt is rn long term care, working toward Medicaid. He will be able to return under Medicare however. FRANSISCO faxed updates, will continue to follow. Plan will be for pt to return to [facility] when able. SANDRO Lehman
[2020-05-04] MEDS: dexAMETHasone 2 MG TABLET 6 MG PO (09:17)
[2020-05-04] MEDS: Enoxaparin 30 MG/0.3 ML Syringe SC ×2 (09:20→20:00)
[2020-05-04] MEDS: Multivitamins,Therapeutic Tablet 1 TABLET PO (09:20)
[2020-05-04] MEDS: Aspirin E.C. 81 MG Tablet PO (09:20)
[2020-05-04] MEDS: NYSTATIN 500,000 UNIT/5 ML UDC 500000 UNIT PO ×2 (09:21→20:01)
[2020-05-04] MEDS: Pantoprazole Sodium 40 MG Tablet PO (09:22)
[2020-05-04] MEDS: Finasteride 5 MG Tablet PO (09:22)
[2020-05-04] MEDS: Ascorbic Acid 500 MG Tablet PO ×2 (09:23→20:02)
[2020-05-04] MEDS: Levothyroxine 100 MCG Tablet 200 MCG PO (09:23)
[2020-05-04] MEDS: Metoprolol(XL)Succ 100 MG Tablet PO (09:23)
[2020-05-04] MEDS: Lisinopril 20 MG Tablet PO (09:24)
[2020-05-04] MEDS: Sertraline 50 MG Tablet PO (09:24)
[2020-05-04] MEDS: buPROPion (XL) 300 MG TABLET.XL PO (09:24)
--- NOTE | 2020-05-04 10:43 | CASEMGMT ---
SW received referral that pt wants to see about going somewhere other than [facility] at discharge. SW called pt, introduced self. Pt states is not feeling well. SW explained that it may be difficult as we are limited with alf choices due to pt having COVID. SW suggested that he go back to [facility] and have [facility] help him to find a new facility once he does not have COVID. Pt states to SW he is scared. SW offered support to pt. SW asked if he has anyone to help him w/medical decisions, pt states he has few people to help. SW asked if he has ever been anyplace else besides [facility], pt states no. SW explained that there are not any other facilities in [place] taking COVID patients, asked if he would want to go outside of [place], pt states it depends on how they would treat him. Pt also states is disoriented. SW explained will call him again tomorrow and we can discuss it again. Pt states understanding. SW called [facility] to see if they have POA papers on file, Janna states her system is down but she will look when it comes back up and let this SW know. SANDRO Lehman
--- NOTE | 2020-05-04 11:32 | CASEMGMT ---
LW/POA forms are not on file. SW asked [facility] to send over if they have them on file. SANDRO Lehman
[2020-05-04 12:05] LABS: Bedside Glucose 188 mg/dL (70-110)
--- NOTE | 2020-05-04 13:00 | PN_ITS ---
Patient Problems: Active and Suspected Problems (Last Reviewed 05/03/20 @ 17:[address] Yoshi Phillip, DO) COVID-19 (Acute) Stomatitis (Acute) Reason for Visit: COVID 19 Subjective: Feeling better. Mouth less sore. tolerating PO, thus far. Vitals/I&O's: Vital Signs Temp Pulse Resp BP Pulse Ox 36.8 C 75 18 138/85 H 92 05/04/20 08:24 05/04/20 09:23 05/04/20 08:24 05/04/20 09:23 05/04/20 08:24 Oxygen Flow Rate (L/min) 3 Oxygen Delivery Method Nasal Cannula Weight: 132 kg Body Mass Index (BMI) 39.4 Intake and Output for Last 24 Hours 05/02/20 05/03/20 05/04/20 23:59 23:59 23:59 Intake Total 910 / 910 1275 / 1275 Output Total 100 / 100 200 / 200 Balance 810 / 810 1075 / 1075 General: Alert, No apparent distress HEENT: Atraumatic, Normocephalic Oral: Moist Mucosa, No Gingival or Mucosal Lesions/ Ulcerations Neck: No Nodes, Thyroid Normal Size and Texture Lungs: Clear to auscultation, Normal air movement, No rhonchi, No wheeze, No rales Cardiovascular: Regular rate, Regular Rhythm, Normal S1, Normal S2, No murmurs Abdomen: Bowel Sounds Present, Soft, Non Tender, Non-Distended, No Hepato- splenomegaly, Obese Extremities: No edema, No Calf Tenderness Skin: No rashes, No breakdown Musculoskeletal: No Tenderness to Palpation of Joints or Extremities, No Muscle Wasting Psych/Mental Status: Normal Affect, Appropriate Microbiology Past 72 Hours 05/03/20 15:11 Urine, Catheterized Urine Culture - Preliminary Culture exhibits no growth. Laboratory Results 05/03/20 14:43: WBC 7.1, RBC 4.70, Hgb 13.4, Hct 41.4, MCV 88.1, MCH 28.5, MCHC 32.4, RDW Std Deviation 49.2 H, RDW Coeff of Bob 15.1 H, Plt Count 235, MPV 11.2, Immature Gran % (Auto) 0.700, Neut % (Auto) 76.6 H, Lymph % (Auto) 13.8 L, [place] % (Auto) 7.0, Eos % (Auto) 1.6, Baso % (Auto) 0.3, Absolute Neuts (auto) 5.4, Absolute Lymphs (auto) 0.97, Nucleated RBC % 0 05/03/20 14:43: Sodium 142, Potassium 3.7, Chloride 113 H, Carbon Dioxide 22.0, Anion Gap 7, BUN 34 H, Creatinine 1.12, Estim Creat Clear Calc 61.59, Est GFR (MDRD) Af Amer 82, Est GFR (MDRD) Non-Af 68, BUN/Creatinine Ratio 30.4 H, Glucose 190 H, Calcium 9.5, Troponin I 0.091 H 05/03/20 14:52: Lactic Acid 1.4 05/03/20 15:11: Urine Color Yellow, Urine Clarity Clear, Urine pH 7.0, Ur Specific [place] 1.015, Urine Protein 500 H, Urine Glucose (UA) 1000 H, Urine Ketones 150 H, Urine Occult Blood 250 H, Urine Nitrite Positive H, Urine Bilirubin 6 H, Urine Urobilinogen 8 H, Ur Leukocyte Esterase 500 H, Urine RBC 0 SEEN, Urine WBC 0-5 SEEN, Ur Squamous Epith Cells 0 SEEN, Urine Bacteria 0 SEEN, Hyaline Casts 0-5 SEEN, Urine Mucus 0 SEEN 05/03/20 18:55: D-Dimer Quant (PE/DVT) 4.57 H* 05/03/20 18:55: Alkaline Phosphatase 68, Troponin I 0.089 H 05/03/20 18:55: Procalcitonin 0.11 H 05/03/20 22:08: POC Glucose 254 H 05/04/20 05:52: WBC 5.2, RBC 4.24 L, Hgb 12.4 L, Hct 37.8 L, MCV 89.2, MCH 29.2, MCHC 32.8, RDW Std Deviation 50.0 H, RDW Coeff of Bob 15.3 H, Plt Count 225, MPV 11.3, Immature Gran % (Auto) 1.400 H, Neut % (Auto) 74.7 H, Lymph % (Auto) 16.2 L, [place] % (Auto) 7.5, Eos % (Auto) 0.0, Baso % (Auto) 0.2, Absolute Neuts (auto) 3.9, Absolute Lymphs (auto) 0.84, Nucleated RBC % 0 05/04/20 05:52: Sodium 142, Potassium 4.1, Chloride 113 H, Carbon Dioxide 21.0, Anion Gap 8, BUN 27 H, Creatinine 1.01, Estim Creat Clear Calc 68.29, Est GFR (MDRD) Af Amer 92, Est GFR (MDRD) Non-Af 76, BUN/Creatinine Ratio 26.7 H, Glucose 202 H, Calcium 8.5, Total Bilirubin 0.40, AST 47 H, ALT 44, Alkaline Phosphatase 61, Total Protein 6.3 L, Albumin 2.6 L, Globulin 3.7, Albumin/Globulin Ratio 0.7 L 05/04/20 08:20: POC Glucose 166 H 05/04/20 11:51: POC Glucose 188 H Current Medications Acetaminophen (Acetaminophen 325 Mg Tablet) 650 mg PO Q6H PRN PRN PRN Reason: Pain Score 1-10/Temp > 100.7 F Albuterol Sulfate (Albuterol Ih 8.5 Gm (Proair) Inhaler (200 Puffs)) 2 puff INHALATION TID PRN PRN PRN Reason: hypoxia Ascorbic Acid (Ascorbic Acid 500 Mg Tablet) 500 mg PO BID [facility] Last Admin: 05/04/20 09:23 Dose: 500 mg Documented by: Aspirin (Aspirin E.C. 81 Mg Tablet) 81 mg PO DAILY [facility] Last Admin: 05/04/20 09:20 Dose: 81 mg Documented by: Bupropion HCl (Bupropion (Xl) 300 Mg Tablet.Xl) 300 mg PO DAILY [facility] Last Admin: 05/04/20 09:24 Dose: 300 mg Documented by: Buspirone HCl (Buspirone 5 Mg Tablet) 10 mg PO TID [facility] Last Admin: 05/04/20 06:58 Dose: 10 mg Documented by: Cholecalciferol (Cholecalciferol (Vit D3) 1,000 Unit (25mcg)) 1,000 unit PO DAILY [facility] Last Admin: 05/04/20 09:23 Dose: 1,000 unit Documented by: Dexamethasone (Dexamethasone 2 Mg Tablet) 6 mg PO DAILY [facility] Last Admin: 05/04/20 09:17 Dose: 6 mg Documented by: Enoxaparin Sodium (Enoxaparin 30 Mg/0.3 Ml Syringe) 30 mg SC BID [facility] Last Admin: 05/04/20 09:20 Dose: 30 mg Documented by: Finasteride (Finasteride 5 Mg Tablet) 5 mg PO DAILY [facility] Last Admin: 05/04/20 09:22 Dose: 5 mg Documented by: Remdesivir 100 mg/ Sodium (Chloride) 250 mls @ 125 mls/hr IV DAILY@2200 [facility] Stop: 05/07/20 23:59 Ibuprofen (Ibuprofen 400 Mg Tablet) 400 mg PO Q4H PRN PRN PRN Reason: Pain Score 1-10/Temp > 100.7 F Levothyroxine Sodium (Levothyroxine 100 Mcg Tablet) 400 mcg PO Morton@1000 [facility] Levothyroxine Sodium (Levothyroxine 100 Mcg Tablet) 200 mcg PO MoTuWeThFrSa@1000 [facility] Last Admin: 05/04/20 09:23 Dose: 200 mcg Documented by: Lidocaine HCl (Lidocaine 2% Viscous 15 Ml Udc) 10 ml PO Q3H PRN PRN Reason: sore mouth, throat Last Admin: 05/04/20 07:05 Dose: 10 ml Documented by: Lisinopril (Lisinopril 20 Mg Tablet) 20 mg PO DAILY [facility] Last Admin: 05/04/20 09:24 Dose: 20 mg Documented by: Melatonin (Melatonin 10 Mg Tablet) 10 mg PO QHS [facility] Last Admin: 05/03/20 20:28 Dose: 10 mg Documented by: Metoprolol Succinate (Metoprolol(Xl)Succ 100 Mg Tablet) 100 mg PO DAILY [facility] Last Admin: 05/04/20 09:23 Dose: 100 mg Documented by: Multivitamins (Multivitamins,Therapeutic Tablet) 1 tablet PO DAILY [facility] Last Admin: 05/04/20 09:20 Dose: 1 tablet Documented by: Nystatin (Nystatin 500,000 Unit/5 Ml Udc) 500,000 unit PO BID [facility] Last Admin: 05/04/20 09:21 Dose: 500,000 unit Documented by: Ondansetron HCl (Ondansetron 4 Mg/2 Ml Vial) 4 mg IV Q8H PRN PRN PRN Reason: NAUSEA/VOMITING Pantoprazole Sodium (Pantoprazole Sodium 40 Mg Tablet) 40 mg PO DAILY [facility] Last Admin: 05/04/20 09:22 Dose: 40 mg Documented by: Saliva Substitute (Saliva Substitute 237 Ml Bottle) 15 ml MM 5X/DAY PRN PRN Reason: DRY MOUTH Last Admin: 05/04/20 08:31 Dose: 15 ml Documented by: Sertraline HCl (Sertraline 50 Mg Tablet) 50 mg PO DAILY [facility] Last Admin: 05/04/20 09:24 Dose: 50 mg Documented by: Sodium Chloride (0.9% Saline Lock 10 Ml Syringe) 10 - 40 ml IV UD PRN PRN Reason: SALINE FLUSH STROKE Vital Signs/Narrative: Vital Signs Pulse BP 05/04/20 09:23 75 138/85 H Medical Necessity - Tobacco Use Smoking Status: Never smoker Tobacco Use: Non-smoker Assessment/Plan All Active Problems (Last Reviewed 05/03/20 @ 17:[address] Yoshi Phillip, DO) COVID-19 (Acute) Stomatitis (Acute) H/O aortic valve replacement (Resolved 07/28/18) Chest pain (Resolved) Unable to ambulate (Resolved) 1. Acute COVID-19 pneumonia * Symptoms testing was established on the , quarantine through 05/20/2020 * Patient was initiated on dexamethasone at his facility. Continue with a 6 mg for a total of 10 days. * Start remdesivir 2. Stomatitis * Improving * This does not appear to be any kind of allergic reaction such as Thakur- Renny's. * I feel is primarily with patient is being profoundly dehydrated * Cautious use of IV fluids given the above diagnosis. Patient had PICC line placed at his senior care * Viscous lidocaine, Biotene mouthwash * Full liquid diet for now 3. Diabetes mellitus type 2 * Hold glyburide * Sliding scale insulin 4. Failure to thrive * Secondary to Covid, stomatitis and dehydration * Supportive management at this time 5. Chronic conditions * Hypothyroid: Continue with levothyroxine * Depression: Continue with antidepressives * Intertrigo: Continue with nystatin powder 6. VTE prophylaxis: High risk: Continue with enoxaparin. Inpatient E&M: [id number] [facility] L[facility]
[2020-05-04] MEDS: Ibuprofen 400 MG Tablet PO (13:57)
--- NOTE | 2020-05-04 16:21 | NURSING ---
LATE ENTRY - 1400 - PT C/O R JAW PAIN. R JAW RED, SWOLLEN, TENDER TO TOUCH. HURTS WHEN PT OPENS MOUTH WIDE. CORTEXT SENT TO DR FAN REGARDING SAME. AWAITING RESPONSE FROM .
[2020-05-04 17:20] LABS: Bedside Glucose 249 mg/dL (70-110)
[2020-05-04] MEDS: 0.9% Saline Lock 10 ML Syringe IV (17:44)
--- NOTE | 2020-05-04 17:46 | NURSING ---
PT TO CT SCAN VIA BED
--- NOTE | 2020-05-04 18:01 | CT_ITS ---
STUDY: CT SOFT TISSUE NECK WITH CONTRAST REASON FOR EXAM: Male, 75 years old. PAROTITIS. +COVID RADIATION DOSAGE (If Supplied By Facility): CTDIvol = ( 19.06 ) mGy, DLP = ( 585.85 ) mGycm TECHNIQUE: The patient was scanned in a multi-detector CT scanner. High resolution transaxial imaging was performed following intravenous administration of IV 100mL Isovue-370. Sagittal and coronal images were reconstructed. Individualized dose optimization techniques were used for this CT. COMPARISON: None. FINDINGS: Fatty atrophy of bilateral parotid glands. 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 Normal bilateral parapharyngeal spaces. Normal bilateral carotid spaces. Normal bilateral sublingual and submandibular glands and spaces. Normal visualized nasopharynx. Normal retropharyngeal space. Normal perivertebral space. Normal visualized bilateral faucial tonsils. The visualized tongue, tongue base and oropharynx are normal. The visualized cervical lymph nodes (levels I-) are within normal size limits, and maintain normal morphology. There is no demonstrated solid or cystic mass lesion. There is no abnormal contrast enhancement. Normal epiglottis, bilateral vallecula and hypopharynx. The pre-epiglottic and paraglottic adipose spaces are normal. Normal visualized bilateral piriform sinuses, aryepiglottic folds, vocal cords, and arytenoid-cricoid articulations. Normal subglottic trachea. Normal bilateral lobes of the thyroid gland. Groundglass opacities in the pulmonary apices bilaterally. Normal visualized paranasal sinuses. Normal visualized cervical spine. 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 No acute inflammatory change noted. Groundglass infiltrates consistent with covid 19. Electronically Signed: Xavier Dye MD at 19:38 EST , Service support ,
[2020-05-04] MEDS: MELATONIN 10 MG TABLET PO (20:01)
[2020-05-04] MEDS: Menthol/Lanolin/Calamine/Znox 113 GM Tube 1 APPLIC TOPICAL (20:07)
[2020-05-04 21:55] LABS: Bedside Glucose 216 mg/dL (70-110)
[2020-05-04] MEDS: Nystatin Powder 15gm Bottle 1 APPLIC TOPICAL (22:59)
[2020-05-05] VITALS (14 sets, daily range): BP systolic 121–152; BP diastolic 69–82; PULSE 59–78; RESP 16–18; TEMP 36.4–37.3; O2SAT 91–95
[2020-05-05] MEDS: busPIRone 5 MG Tablet 10 MG PO ×3 (05:38→21:39)
[2020-05-05 06:25] LABS: Absolute Lymphocyte Count 1.46 X10^3/uL (0.83-4.51); Absolute Neutrophil Count 6.2 X10^3/uL (2.0-7.7); Basophil# 0.01 X10^3/uL; Basophil% 0.1 % (0-1); Eosinophil# 0.06 X10^3/uL; Eosinophils% 0.7 % (0-5); Hematocrit 39.3 % (40-54); Hemoglobin 12.2 g/dL (13.0-16.5); Lymphocyte # 1.46 X10^3/ul (4.0); Lymphocyte % 17.3 % (19-41); Mean Corpuscular Hgb 27.8 pg (27.0-32.0); Mean Corpuscular Volume 89.5 fL (80-94); Mean Platelet Vol. 11.5 fl (6.2-12.0); Monocyte# 0.58 X10^3/uL; Monocyte% 6.9 % (0-10); NRBC Flagged by Analyzer 0 % (0-5); Neutrophil % 73.6 % (47-70); Platelet Count 240 K/mm3 (150-450); RBC Distribution Width CV 15.3 % (11.6-14.6); RBC Distribution Width SD 50.9 fl (35.1-43.9); Red Blood Count 4.39 M/mm3 (4.6-6.2); White Blood Count 8.4 K/mm3 (4.4-11.0)
[2020-05-05 07:01] LABS: ALB/GLOB Ratio 0.7 RATIO (0.9-2.4); AST(SGOT) 45 U/L (15-37); Alanine Aminotransfer ALT/SGPT 46 U/L (16-61); Albumin, Serum 2.8 g/dL (3.2-5.0); Alkaline Phosphatase 64 U/L (45-117); Anion Gap 6 (5-15); BUN 23 mg/dL (7-18); BUN/Creat Ratio 24.9 RATIO (10-20); Calcium,Total 8.7 mg/dL (8.5-10.1); Chloride 111 mmol/L (98-107); Creatinine, Serum 0.92 mg/dL (0.70-1.30); EST Glomerular Filtration Rate 85 mL/min (>60); Est Glom Filt Rate - Afr Amer 102 mL/min (>60); Estimated Creatinine Clearance 74.98 ml/min; Globulin 3.9 g/dL (2.2-4.2); Glucose 152 mg/dL (74-106); Protein, Total 6.7 g/dL (6.4-8.2); Sodium Level 142 mmol/L (136-145)
[2020-05-05 07:26] LABS: Bedside Glucose 157 mg/dL (70-110)
[2020-05-05] MEDS: Enoxaparin 30 MG/0.3 ML Syringe SC ×2 (09:00→21:39)
[2020-05-05] MEDS: Menthol/Lanolin/Calamine/Znox 113 GM Tube 1 APPLIC TOPICAL ×2 (09:06→21:39)
[2020-05-05] MEDS: Nystatin Powder 15gm Bottle 1 APPLIC TOPICAL ×2 (09:06→21:39)
[2020-05-05] MEDS: Aspirin E.C. 81 MG Tablet PO (09:07)
[2020-05-05] MEDS: Pantoprazole Sodium 40 MG Tablet PO (09:07)
[2020-05-05] MEDS: Ascorbic Acid 500 MG Tablet PO ×2 (09:07→21:39)
[2020-05-05] MEDS: Metoprolol(XL)Succ 100 MG Tablet PO (09:07)
[2020-05-05] MEDS: Levothyroxine 100 MCG Tablet 200 MCG PO (09:07)
[2020-05-05] MEDS: dexAMETHasone 2 MG TABLET 6 MG PO (09:07)
[2020-05-05] MEDS: NYSTATIN 500,000 UNIT/5 ML UDC 500000 UNIT PO ×2 (09:08→21:39)
[2020-05-05] MEDS: Lisinopril 20 MG Tablet PO (09:08)
[2020-05-05] MEDS: Finasteride 5 MG Tablet PO (09:08)
[2020-05-05] MEDS: Ibuprofen 400 MG Tablet PO ×2 (09:08→17:49)
[2020-05-05] MEDS: Multivitamins,Therapeutic Tablet 1 TABLET PO (09:08)
[2020-05-05] MEDS: Sertraline 50 MG Tablet PO (09:08)
[2020-05-05] MEDS: buPROPion (XL) 300 MG TABLET.XL PO (09:08)
--- NOTE | 2020-05-05 09:13 | CASEMGMT ---
Physician spoke w/pt about returning to [facility] vs. going to another facility. Pt is agreeable at this time to go back to [facility]. SW called Janna at [facility], did let her know pt was talking about changing facilities and he may need assist with that once he is through the COVID, or perhaps they can work with him to improve on whatever issues he is having with their facility. Janna states understanding, she did also reach out to [facility] yesterday, who they have listed as POA, and there was concern that the facility lost his cell phone, Janna is going to address this. SW explained will fax updates and let them know if pt is ready today or not. Updates faxed, FRANSISCO will continue to follow. SANDRO Lehman
--- NOTE | 2020-05-05 11:09 | CASEMGMT ---
FRANSISCO spoke w/physician, pt is not ready today, may be ready tomorrow. SW called Janna at [facility] and let her know. FRANSISCO called Jaylin [facility]ickman, who is listed as [facility]. She confirms is POA, has papers at home and she states [facility] should have a copy. SW let her know pt is not ready for discharge tomorrow, may be ready over the holiday weekend. FRANSISCO also spoke w/her about pt saying he wants to go to a different skilled nursing. Jaylin states they have a friend who works at [facility] now, and told pt she thinks he should stay there. She states that she advocates for him and now that they have a friend who works there, she thinks this will help as well. FRANSISCO also explained if he still wants to make a change, he may want to wait until he is through COVID, so he could pick from all of the facilities rather than just facilities that take COVID. Jaylin states understanding and is in agreement with this. Plan: [facility] when ready, green sheet on chart should pt be ready over the weekend. SANDRO Lehman
[2020-05-05 12:01] LABS: Bedside Glucose 224 mg/dL (70-110)
[2020-05-05] MEDS: Saliva Substitute 237 ML BOTTLE 15 ML MM (13:20)
[2020-05-05] MEDS: 0.9% Saline Lock 10 ML Syringe IV (13:20)
--- NOTE | 2020-05-05 14:32 | PN_ITS ---
Patient Problems: Active and Suspected Problems (Last Reviewed 05/03/20 @ 17:[address] Yoshi Phillip, DO) COVID-19 (Acute) Stomatitis (Acute) Reason for Visit: COVID 19 Subjective: Breathing well. Increased right facial swelling and tenderness. Feels weak. Objective: felt too weak to get up with my assistance using a walker. Vitals/I&O's: Vital Signs Temp Pulse Resp BP Pulse Ox 36.9 C 78 18 132/73 H 95 05/05/20 08:58 05/05/20 11:00 05/05/20 08:58 05/05/20 09:07 05/05/20 11:30 Oxygen Flow Rate (L/min) 1 Oxygen Delivery Method Nasal Cannula Weight: 132 kg Body Mass Index (BMI) 39.4 Intake and Output for Last 24 Hours 05/03/20 05/04/20 05/05/20 23:59 23:59 23:59 Intake Total 910 / 910 2137 / 2137 644 / 644 Output Total 100 / 100 500 / 500 Balance 810 / 810 1637 / 1637 644 / 644 General: Alert, No apparent distress HEENT: Atraumatic, Normocephalic, - - increased swelling on right side of face along proximal mandible. Oral: Moist Mucosa, No Gingival or Mucosal Lesions/ Ulcerations Neck: No Nodes, Thyroid Normal Size and Texture Lungs: Clear to auscultation, Normal air movement, No rhonchi, No wheeze Cardiovascular: Regular rate, Regular Rhythm, Normal S1, Normal S2, No murmurs Abdomen: Bowel Sounds Present, Soft, Non Tender, Non-Distended, No Hepato- splenomegaly Extremities: No edema, No Calf Tenderness Psych/Mental Status: Normal Affect, Appropriate Microbiology Past 72 Hours 05/03/20 14:43 Blood Culture (Wb) - Right Hand Blood Culture - Preliminary No growth in 48 hours. 05/03/20 14:52 Blood Culture (Wb) - Left Hand Blood Culture - Preliminary No growth in 48 hours. 05/03/20 15:11 Urine, Catheterized Urine Culture - Preliminary Culture exhibits no growth. Laboratory Results 05/04/20 17:04: POC Glucose 249 H 05/04/20 21:16: POC Glucose 216 H 05/05/20 05:45: WBC 8.4, RBC 4.39 L, Hgb 12.2 L, Hct 39.3 L, MCV 89.5, MCH 27.8, MCHC 31.0 L D, RDW Std Deviation 50.9 H, RDW Coeff of Bob 15.3 H, Plt Count 240, MPV 11.5, Immature Gran % (Auto) 1.400 H, Neut % (Auto) 73.6 H, Lymph % (Auto) 17.3 L, [place] % (Auto) 6.9, Eos % (Auto) 0.7, Baso % (Auto) 0.1, Absolute Neuts (auto) 6.2, Absolute Lymphs (auto) 1.46, Nucleated RBC % 0 05/05/20 05:45: Sodium 142, Potassium 4.0, Chloride 111 H, Carbon Dioxide 25.0, Anion Gap 6, BUN 23 H, Creatinine 0.92, Estim Creat Clear Calc 74.98, Est GFR (MDRD) Af Amer 102, Est GFR (MDRD) Non-Af 85, BUN/Creatinine Ratio 24.9 H, Glucose 152 H, Calcium 8.7, Total Bilirubin 0.60, AST 45 H, ALT 46, Alkaline Phosphatase 64, Total Protein 6.7, Albumin 2.8 L, Globulin 3.9, Albumin/Globulin Ratio 0.7 L 05/05/20 07:14: POC Glucose 157 H 05/05/20 11:32: POC Glucose 224 H Current Medications Acetaminophen (Acetaminophen 325 Mg Tablet) 650 mg PO Q6H PRN PRN PRN Reason: Pain Score 1-10/Temp > 100.7 F Albuterol Sulfate (Albuterol Ih 8.5 Gm (Proair) Inhaler (200 Puffs)) 2 puff INHALATION TID PRN PRN PRN Reason: hypoxia Ascorbic Acid (Ascorbic Acid 500 Mg Tablet) 500 mg PO BID [facility] Last Admin: 05/05/20 09:07 Dose: 500 mg Documented by: Aspirin (Aspirin E.C. 81 Mg Tablet) 81 mg PO DAILY [facility] Last Admin: 05/05/20 09:07 Dose: 81 mg Documented by: Bupropion HCl (Bupropion (Xl) 300 Mg Tablet.Xl) 300 mg PO DAILY [facility] Last Admin: 05/05/20 09:08 Dose: 300 mg Documented by: Buspirone HCl (Buspirone 5 Mg Tablet) 10 mg PO TID [facility] Last Admin: 05/05/20 13:20 Dose: 10 mg Documented by: Calamine/Phenol (Menthol/Lanolin/Calamine/Znox 113 Gm Tube) 1 applic TOPICAL BID [facility]; Protocol Last Admin: 05/05/20 09:06 Dose: 1 applicatio Documented by: Cholecalciferol (Cholecalciferol (Vit D3) 1,000 Unit (25mcg)) 1,000 unit PO DAILY [facility] Last Admin: 05/05/20 09:07 Dose: 1,000 unit Documented by: Dexamethasone (Dexamethasone 2 Mg Tablet) 6 mg PO DAILY [facility] Last Admin: 05/05/20 09:07 Dose: 6 mg Documented by: Enoxaparin Sodium (Enoxaparin 30 Mg/0.3 Ml Syringe) 30 mg SC BID [facility] Last Admin: 05/05/20 09:00 Dose: 30 mg Documented by: Finasteride (Finasteride 5 Mg Tablet) 5 mg PO DAILY [facility] Last Admin: 05/05/20 09:08 Dose: 5 mg Documented by: Remdesivir 100 mg/ Sodium (Chloride) 250 mls @ 125 mls/hr IV DAILY@2200 [facility] Stop: 05/07/20 23:59 Last Infusion: 05/05/20 00:57 Dose: Infused Documented by: Ampicillin Sodium/Sulbactam (Sodium 3 gm/ Sodium Chloride) 112 mls @ 150 mls/hr IV Q6 [facility] Last Admin: 05/05/20 13:20 Dose: 150 mls/hr Documented by: Ibuprofen (Ibuprofen 400 Mg Tablet) 400 mg PO Q4H PRN PRN PRN Reason: Pain Score 1-10/Temp > 100.7 F Last Admin: 05/05/20 09:08 Dose: 400 mg Documented by: Levothyroxine Sodium (Levothyroxine 100 Mcg Tablet) 400 mcg PO Morton@1000 [facility] Levothyroxine Sodium (Levothyroxine 100 Mcg Tablet) 200 mcg PO MoTuWeThFrSa@1000 [facility] Last Admin: 05/05/20 09:07 Dose: 200 mcg Documented by: Lidocaine HCl (Lidocaine 2% Viscous 15 Ml Udc) 10 ml PO Q3H PRN PRN Reason: sore mouth, throat Last Admin: 05/05/20 09:06 Dose: 10 ml Documented by: Lisinopril (Lisinopril 20 Mg Tablet) 20 mg PO DAILY [facility] Last Admin: 05/05/20 09:08 Dose: 20 mg Documented by: Melatonin (Melatonin 10 Mg Tablet) 10 mg PO QHS [facility] Last Admin: 05/04/20 20:01 Dose: 10 mg Documented by: Metoprolol Succinate (Metoprolol(Xl)Succ 100 Mg Tablet) 100 mg PO DAILY [facility] Last Admin: 05/05/20 09:07 Dose: 100 mg Documented by: Multivitamins (Multivitamins,Therapeutic Tablet) 1 tablet PO DAILY [facility] Last Admin: 05/05/20 09:08 Dose: 1 tablet Documented by: Nystatin (Nystatin 500,000 Unit/5 Ml Udc) 500,000 unit PO BID [facility] Last Admin: 05/05/20 09:08 Dose: 500,000 unit Documented by: Nystatin (Nystatin Powder 15gm Bottle) 1 applic TOPICAL BID [facility]; Protocol Last Admin: 05/05/20 09:06 Dose: 1 applicatio Documented by: Ondansetron HCl (Ondansetron 4 Mg/2 Ml Vial) 4 mg IV Q8H PRN PRN PRN Reason: NAUSEA/VOMITING Pantoprazole Sodium (Pantoprazole Sodium 40 Mg Tablet) 40 mg PO DAILY [facility] Last Admin: 05/05/20 09:07 Dose: 40 mg Documented by: Saliva Substitute (Saliva Substitute 237 Ml Bottle) 15 ml MM 5X/DAY PRN PRN Reason: DRY MOUTH Last Admin: 05/05/20 13:20 Dose: 15 ml Documented by: Sertraline HCl (Sertraline 50 Mg Tablet) 50 mg PO DAILY [facility] Last Admin: 05/05/20 09:08 Dose: 50 mg Documented by: Sodium Chloride (0.9% Saline Lock 10 Ml Syringe) 10 - 40 ml IV UD PRN PRN Reason: SALINE FLUSH Last Admin: 05/05/20 13:20 Dose: 10 ml Documented by: STROKE Vital Signs/Narrative: Vital Signs Pulse Pulse Ox 05/05/20 11:30 95 05/05/20 11:00 78 Medical Necessity - Tobacco Use Smoking Status: Never smoker Tobacco Use: Non-smoker Assessment/Plan All Active Problems (Last Reviewed 05/03/20 @ 17:[address] Yoshi Phillip, DO) COVID-19 (Acute) Stomatitis (Acute) H/O aortic valve replacement (Resolved 07/28/18) Chest pain (Resolved) Unable to ambulate (Resolved) 1. Acute COVID-19 pneumonia * Symptoms testing was established on the , quarantine through 05/20/2020 * Patient was initiated on dexamethasone at his facility. Continue with a 6 mg for a total of 10 days. * Start remdesivir 2. Stomatitis * Improving * This does not appear to be any kind of allergic reaction such as Thakur- Renny's. * I feel is primarily with patient is being profoundly dehydrated * Cautious use of IV fluids given the above diagnosis. Patient had PICC line placed at his skilled nursing * Viscous lidocaine, Biotene mouthwash * Full liquid diet for now 3. acute right parotitis * no evidence of inflammation on CT on 05/04 * 05/05 appears worse. Continue with unasyn. 4. Diabetes mellitus type 2 * Hold glyburide * Sliding scale insulin 5. Failure to thrive * Secondary to Covid, stomatitis and dehydration * Supportive management at this time 6. Chronic conditions * Hypothyroid: Continue with levothyroxine * Depression: Continue with antidepressives * Intertrigo: Continue with nystatin powder 7. VTE prophylaxis: High risk: Continue with enoxaparin. 8. Disposition: back to [facility] when medically stable. Anticipate medically ready for DC in 1-2 days. Inpatient E&M: [id number] [facility] L2
[2020-05-05 16:41] LABS: Bedside Glucose 267 mg/dL (70-110)
[2020-05-05] MEDS: MELATONIN 10 MG TABLET PO (21:43)
[2020-05-06] VITALS (7 sets, daily range): BP systolic 137–160; BP diastolic 70–81; PULSE 61–69; RESP 16–18; TEMP 36.3–37.3; O2SAT 92
[2020-05-06 05:28] LABS: Absolute Lymphocyte Count 1.39 X10^3/uL (0.83-4.51); Absolute Neutrophil Count 4.6 X10^3/uL (2.0-7.7); Basophil# 0.02 X10^3/uL; Basophil% 0.3 % (0-1); Eosinophil# 0.09 X10^3/uL; Eosinophils% 1.3 % (0-5); Hematocrit 38.2 % (40-54); Hemoglobin 11.8 g/dL (13.0-16.5); Lymphocyte # 1.39 X10^3/ul (4.0); Lymphocyte % 20.1 % (19-41); Mean Corp Hgb Conc 30.9 g/dL (32-36); Mean Corpuscular Hgb 28.2 pg (27.0-32.0); Mean Corpuscular Volume 91.4 fL (80-94); Mean Platelet Vol. 11.6 fl (6.2-12.0); Monocyte# 0.62 X10^3/uL; NRBC Flagged by Analyzer 0 % (0-5); Neutrophil # 4.64 X10^3/uL (2.7-7.7); Platelet Count 232 K/mm3 (150-450); RBC Distribution Width CV 15.4 % (11.6-14.6); RBC Distribution Width SD 51.7 fl (35.1-43.9); Red Blood Count 4.18 M/mm3 (4.6-6.2); White Blood Count 6.9 K/mm3 (4.4-11.0)
[2020-05-06 05:57] LABS: ALB/GLOB Ratio 0.6 RATIO (0.9-2.4); AST(SGOT) 37 U/L (15-37); Alanine Aminotransfer ALT/SGPT 41 U/L (16-61); Albumin, Serum 2.5 g/dL (3.2-5.0); Alkaline Phosphatase 58 U/L (45-117); Anion Gap 7 (5-15); BUN 19 mg/dL (7-18); BUN/Creat Ratio 22.3 RATIO (10-20); Calcium,Total 8.6 mg/dL (8.5-10.1); Chloride 110 mmol/L (98-107); Creatinine, Serum 0.85 mg/dL (0.70-1.30); EST Glomerular Filtration Rate 93 mL/min (>60); Est Glom Filt Rate - Afr Amer 113 mL/min (>60); Estimated Creatinine Clearance 81.15 ml/min; Globulin 4.3 g/dL (2.2-4.2); Glucose 177 mg/dL (74-106); Potassium 3.5 mmol/L (3.5-5.1); Protein, Total 6.8 g/dL (6.4-8.2); Sodium Level 139 mmol/L (136-145)
[2020-05-06] MEDS: Ibuprofen 400 MG Tablet PO (06:12)
[2020-05-06] MEDS: busPIRone 5 MG Tablet 10 MG PO ×3 (06:12→19:52)
--- NOTE | 2020-05-06 08:58 | PCM.PN.HOSP ---
Patient Problems: Active and Suspected Problems (Last Reviewed 05/03/20 @ 17:[address] Yoshi Phillip, DO) COVID-19 (Acute) Stomatitis (Acute) Reason for Visit: Follow-up for COVID-19 infection with right-sided parotitis. Objective: No fever. Pulse ox 92% on room air. COVID-19 infection. Patient has pain, swelling on the right parotid region. Pain on the lateral movement of the lower jaw. Patient denies fever, cough, nausea, vomiting, diarrhea, alteration of taste or smell. Physical exam General: Alert, Oriented x3, Cooperative HEENT: Atraumatic, PERRLA, EOMI, Normocephalic Oral: No Gingival or Mucosal Lesions/ Ulcerations. Tenderness on the right parotid region with induration and swelling. Neck: Supple, No JVD, Negative Carotid Bruits Lungs: Air entry diminished in bilateral lung bases. No crepitation/rhonchi Cardiovascular: Regular rate, Regular Rhythm, Normal S1, Normal S2, No murmurs Abdomen: Bowel Sounds Present, Soft, Non Tender, Non-Distended : No renal angle tenderness. No suprapubic tenderness. Extremities: No edema, Capillary Refill Less than 3 Seconds Skin: No rashes, No breakdown Musculoskeletal: No Tenderness to Palpation of Joints or Extremities Neurological: Cranial nerves II-XII grossly intact, Deep Tendon Reflexes 2+/4 and Symmetrical, Neuro grossly intact Psych/Mental Status: Normal Affect, Appropriate. Vitals/I&O's: Vital Signs Temp Pulse Resp BP Pulse Ox 98.7 F 61 18 160/81 H 92 05/06/20 06:09 05/06/20 06:09 05/06/20 06:09 05/06/20 06:09 05/06/20 07:14 Oxygen Flow Rate (L/min) 1 Oxygen Delivery Method Room Air Weight: 291 lb 0.163 oz Body Mass Index (BMI) 39.4 Intake and Output for Last 24 Hours 05/04/20 05/05/20 05/06/20 23:59 23:59 23:59 Intake Total 2137 / 2137 1478 / 1478 224 / 224 Output Total 500 / 500 600 / 600 Balance 1637 / 1637 878 / 878 224 / 224 Microbiology Past 72 Hours 05/03/20 15:11 Urine, Catheterized Urine Culture - Final Culture exhibits no growth. 12/22/20 14:43 Blood Culture (Wb) - Right Hand Blood Culture - Preliminary No growth in 48 hours. 05/03/20 14:52 Blood Culture (Wb) - Left Hand Blood Culture - Preliminary No growth in 48 hours. Laboratory Results 05/05/20 11:32: POC Glucose 224 H 05/05/20 16:31: POC Glucose 267 H 05/06/20 04:50: WBC 6.9, RBC 4.18 L, Hgb 11.8 L, Hct 38.2 L, MCV 91.4, MCH 28.2, MCHC 30.9 L, RDW Std Deviation 51.7 H, RDW Coeff of Bob 15.4 H, Plt Count 232, MPV 11.6, Immature Gran % (Auto) 2.300 H, Neut % (Auto) 67.0, Lymph % (Auto) 20.1, Milam % (Auto) 9.0, Eos % (Auto) 1.3, Baso % (Auto) 0.3, Absolute Neuts (auto) 4.6, Absolute Lymphs (auto) 1.39, Nucleated RBC % 0 05/06/20 04:50: Sodium 139, Potassium 3.5, Chloride 110 H, Carbon Dioxide 22.0, Anion Gap 7, BUN 19 H, Creatinine 0.85, Estim Creat Clear Calc 81.15, Est GFR (MDRD) Af Amer 113, Est GFR (MDRD) Non-Af 93, BUN/Creatinine Ratio 22.3 H, Glucose 177 H, Calcium 8.6, Total Bilirubin 0.60, AST 37, ALT 41, Alkaline Phosphatase 58, Total Protein 6.8, Albumin 2.5 L, Globulin 4.3 H, Albumin/Globulin Ratio 0.6 L Current Medications Acetaminophen (Acetaminophen 325 Mg Tablet) 650 mg PO Q6H PRN PRN PRN Reason: Pain Score 1-10/Temp > 100.7 F Albuterol Sulfate (Albuterol Ih 8.5 Gm (Proair) Inhaler (200 Puffs)) 2 puff INHALATION TID PRN PRN PRN Reason: hypoxia Ascorbic Acid (Ascorbic Acid 500 Mg Tablet) 500 mg PO BID [facility] Last Admin: 05/05/20 21:39 Dose: 500 mg Documented by: Aspirin (Aspirin E.C. 81 Mg Tablet) 81 mg PO DAILY [facility] Last Admin: 05/05/20 09:07 Dose: 81 mg Documented by: Bupropion HCl (Bupropion (Xl) 300 Mg Tablet.Xl) 300 mg PO DAILY [facility] Last Admin: 05/05/20 09:08 Dose: 300 mg Documented by: Buspirone HCl (Buspirone 5 Mg Tablet) 10 mg PO TID [facility] Last Admin: 05/06/20 06:12 Dose: 10 mg Documented by: Calamine/Phenol (Menthol/Lanolin/Calamine/Znox 113 Gm Tube) 1 applic TOPICAL BID [facility]; Protocol Last Admin: 05/05/20 21:39 Dose: 1 applicatio Documented by: Cholecalciferol (Cholecalciferol (Vit D3) 1,000 Unit (25mcg)) 1,000 unit PO DAILY [facility] Last Admin: 05/05/20 09:07 Dose: 1,000 unit Documented by: Dexamethasone (Dexamethasone 2 Mg Tablet) 6 mg PO DAILY [facility] Last Admin: 05/05/20 09:07 Dose: 6 mg Documented by: Enoxaparin Sodium (Enoxaparin 30 Mg/0.3 Ml Syringe) 30 mg SC BID [facility] Last Admin: 05/05/20 21:39 Dose: 30 mg Documented by: Finasteride (Finasteride 5 Mg Tablet) 5 mg PO DAILY [facility] Last Admin: 05/05/20 09:08 Dose: 5 mg Documented by: Remdesivir 100 mg/ Sodium (Chloride) 250 mls @ 125 mls/hr IV DAILY@2200 [facility] Stop: 05/07/20 23:59 Last Infusion: 05/05/20 23:37 Dose: Infused Documented by: Ampicillin Sodium/Sulbactam (Sodium 3 gm/ Sodium Chloride) 112 mls @ 150 mls/hr IV Q6 [facility] Last Infusion: 05/06/20 06:56 Dose: Infused Documented by: Ibuprofen (Ibuprofen 400 Mg Tablet) 400 mg PO Q4H PRN PRN PRN Reason: Pain Score 1-10/Temp > 100.7 F Last Admin: 05/06/20 06:12 Dose: 400 mg Documented by: Levothyroxine Sodium (Levothyroxine 100 Mcg Tablet) 400 mcg PO Morton@1000 [facility] Levothyroxine Sodium (Levothyroxine 100 Mcg Tablet) 200 mcg PO MoTuWeThFrSa@1000 [facility] Last Admin: 05/05/20 09:07 Dose: 200 mcg Documented by: Lidocaine HCl (Lidocaine 2% Viscous 15 Ml Udc) 10 ml PO Q3H PRN PRN Reason: sore mouth, throat Last Admin: 05/05/20 17:49 Dose: 10 ml Documented by: Lisinopril (Lisinopril 20 Mg Tablet) 20 mg PO DAILY [facility] Last Admin: 05/05/20 09:08 Dose: 20 mg Documented by: Melatonin (Melatonin 10 Mg Tablet) 10 mg PO QHS [facility] Last Admin: 05/05/20 21:43 Dose: 10 mg Documented by: Metoprolol Succinate (Metoprolol(Xl)Succ 100 Mg Tablet) 100 mg PO DAILY [facility] Last Admin: 05/05/20 09:07 Dose: 100 mg Documented by: Multivitamins (Multivitamins,Therapeutic Tablet) 1 tablet PO DAILY [facility] Last Admin: 05/05/20 09:08 Dose: 1 tablet Documented by: Nystatin (Nystatin 500,000 Unit/5 Ml Udc) 500,000 unit PO BID [facility] Last Admin: 05/05/20 21:39 Dose: 500,000 unit Documented by: Nystatin (Nystatin Powder 15gm Bottle) 1 applic TOPICAL BID [facility]; Protocol Last Admin: 05/05/20 21:39 Dose: 1 applicatio Documented by: Ondansetron HCl (Ondansetron 4 Mg/2 Ml Vial) 4 mg IV Q8H PRN PRN PRN Reason: NAUSEA/VOMITING Pantoprazole Sodium (Pantoprazole Sodium 40 Mg Tablet) 40 mg PO DAILY [facility] Last Admin: 05/05/20 09:07 Dose: 40 mg Documented by: Saliva Substitute (Saliva Substitute 237 Ml Bottle) 15 ml MM 5X/DAY PRN PRN Reason: DRY MOUTH Last Admin: 05/05/20 13:20 Dose: 15 ml Documented by: Sertraline HCl (Sertraline 50 Mg Tablet) 50 mg PO DAILY [facility] Last Admin: 05/05/20 09:08 Dose: 50 mg Documented by: Sodium Chloride (0.9% Saline Lock 10 Ml Syringe) 10 - 40 ml IV UD PRN PRN Reason: SALINE FLUSH Last Admin: 05/05/20 13:20 Dose: 10 ml Documented by: STROKE Vital Signs/Narrative: Vital Signs Temp Pulse Resp BP Pulse Ox 05/06/20 07:14 92 05/06/20 06:09 98.7 F 61 18 160/81 H 92 Medical Necessity - Tobacco Use Smoking Status: Never smoker Tobacco Use: Non-smoker Assessment/Plan All Active Problems (Last Reviewed 05/03/20 @ 17:[address] Yoshi Phillip, DO) COVID-19 (Acute) Stomatitis (Acute) H/O aortic valve replacement (Resolved 07/28/18) Chest pain (Resolved) Unable to ambulate (Resolved) 1. Acute COVID-19 pneumonia Symptoms testing was established on the , quarantine through 05/20/2020 Patient was initiated on dexamethasone at his facility. Continue with a 6 mg for a total of 10 days. Start remdesivir 2. Stomatitis: Has much improved. As per previous hospitalist, does not appear to Thakur-Renny syndrome. On regular diet. Patient has PICC line. 3. acute right parotitis: CT soft tissue neck does not show evidence of inflammation on 05/04. Lateral fat atrophy of parotids. On Unasyn. 4. Diabetes mellitus type 2 Hold glyburide Sliding scale insulin 5. Failure to thrive Secondary to Covid, stomatitis and dehydration. His diet is improving. 6. Chronic conditions: Hypothyroidism, depression and intertrigo: Patient on levothyroxine, antidepressant nystatin powder. 7. VTE prophylaxis: High risk: Continue with enoxaparin. Microbiology Past 72 Hours 05/03/20 15:11 Urine, Catheterized Urine Culture - Final Culture exhibits no growth. 05/03/20 14:43 Blood Culture (Wb) - Right Hand Blood Culture - Preliminary No growth in 48 hours. 05/03/20 14:52 Blood Culture (Wb) - Left Hand Blood Culture - Preliminary No growth in 48 hours. Laboratory Results 05/05/20 11:32: POC Glucose 224 H 05/05/20 16:31: POC Glucose 267 H Clinical Impression(s) from Imaging Studies Chest X-Ray 05/03/20 15:35 IMPRESSION: Patchy bilateral infiltrates as described. Chest CTA 05/03/20 20:59 IMPRESSION: High-grade multifocal groundglass opacities typical for covid 19 other etiologies not excluded. Endovascular aortic valve and coronary artery disease. Soft Tissue Neck CT 05/04/20 18:01 IMPRESSION: Bilateral fatty atrophy of the parotid glands. No acute inflammatory change noted. Groundglass infiltrates consistent with covid 19. 05/06/20 04:50: WBC 6.9, RBC 4.18 L, Hgb 11.8 L, Hct 38.2 L, MCV 91.4, MCH 28.2, MCHC 30.9 L, RDW Std Deviation 51.7 H, RDW Coeff of Bob 15.4 H, Plt Count 232, MPV 11.6, Immature Gran % (Auto) 2.300 H, Neut % (Auto) 67.0, Lymph % (Auto) 20.1, Milam % (Auto) 9.0, Eos % (Auto) 1.3, Baso % (Auto) 0.3, Absolute Neuts (auto) 4.6, Absolute Lymphs (auto) 1.39, Nucleated RBC % 0 05/06/20 04:50: Sodium 139, Potassium 3.5, Chloride 110 H, Carbon Dioxide 22.0, Anion Gap 7, BUN 19 H, Creatinine 0.85, Estim Creat Clear Calc 81.15, Est GFR (MDRD) Af Amer 113, Est GFR (MDRD) Non-Af 93, BUN/Creatinine Ratio 22.3 H, Glucose 177 H, Calcium 8.6, Total Bilirubin 0.60, AST 37, ALT 41, Alkaline Phosphatase 58, Total Protein 6.8, Albumin 2.5 L, Globulin 4.3 H, Albumin/Globulin Ratio 0.6 L Inpatient E&M: 56758 Subs Hosp L2
[2020-05-06] MEDS: Enoxaparin 30 MG/0.3 ML Syringe SC ×2 (09:17→19:52)
[2020-05-06] MEDS: Menthol/Lanolin/Calamine/Znox 113 GM Tube 1 APPLIC TOPICAL ×2 (09:17→19:55)
[2020-05-06] MEDS: Levothyroxine 100 MCG Tablet 200 MCG PO (09:18)
[2020-05-06] MEDS: Aspirin E.C. 81 MG Tablet PO (09:18)
[2020-05-06] MEDS: Sertraline 50 MG Tablet PO (09:19)
[2020-05-06] MEDS: buPROPion (XL) 300 MG TABLET.XL PO (09:19)
[2020-05-06] MEDS: dexAMETHasone 2 MG TABLET 6 MG PO (09:19)
[2020-05-06] MEDS: Pantoprazole Sodium 40 MG Tablet PO (09:19)
[2020-05-06] MEDS: Lisinopril 20 MG Tablet PO (09:20)
[2020-05-06] MEDS: Finasteride 5 MG Tablet PO (09:20)
[2020-05-06] MEDS: Multivitamins,Therapeutic Tablet 1 TABLET PO (09:20)
[2020-05-06] MEDS: Ascorbic Acid 500 MG Tablet PO ×2 (09:20→19:53)
[2020-05-06] MEDS: NYSTATIN 500,000 UNIT/5 ML UDC 500000 UNIT PO ×2 (09:21→19:56)
[2020-05-06] MEDS: Nystatin Powder 15gm Bottle 1 APPLIC TOPICAL ×2 (09:21→19:54)
[2020-05-06] MEDS: Metoprolol(XL)Succ 100 MG Tablet PO (09:23)
[2020-05-06] MEDS: MELATONIN 10 MG TABLET PO (19:53)
[2020-05-06] MEDS: Acetaminophen 325 MG Tablet 650 MG PO (22:15)
[2020-05-07 03:00] VITALS: BP 144/71; PULSE 53; RESP 18; TEMP 37.1; O2SAT 93
[2020-05-07] MEDS: busPIRone 5 MG Tablet 10 MG PO (05:52)
[2020-05-07] MEDS: Enoxaparin 30 MG/0.3 ML Syringe SC (09:00)
[2020-05-07] MEDS: Menthol/Lanolin/Calamine/Znox 113 GM Tube 1 APPLIC TOPICAL (09:00)
[2020-05-07 09:01] VITALS: BP 107/67; PULSE 72
[2020-05-07] MEDS: Metoprolol(XL)Succ 100 MG Tablet PO (09:01)
[2020-05-07] MEDS: Pantoprazole Sodium 40 MG Tablet PO (09:01)
[2020-05-07] MEDS: NYSTATIN 500,000 UNIT/5 ML UDC 500000 UNIT PO (09:01)
[2020-05-07] MEDS: dexAMETHasone 2 MG TABLET 6 MG PO (09:05)
[2020-05-07] MEDS: Sertraline 50 MG Tablet PO (09:06)
[2020-05-07] MEDS: Multivitamins,Therapeutic Tablet 1 TABLET PO (09:06)
[2020-05-07] MEDS: Ascorbic Acid 500 MG Tablet PO (09:06)
[2020-05-07] MEDS: Levothyroxine 100 MCG Tablet 200 MCG PO (09:06)
[2020-05-07] MEDS: Aspirin E.C. 81 MG Tablet PO (09:06)
[2020-05-07] MEDS: Finasteride 5 MG Tablet PO (09:06)
[2020-05-07] MEDS: buPROPion (XL) 300 MG TABLET.XL PO (09:06)
[2020-05-07] MEDS: Lisinopril 20 MG Tablet PO (09:06)
[2020-05-07] MEDS: Nystatin Powder 15gm Bottle 1 APPLIC TOPICAL (09:13)
[2020-05-07 09:14] VITALS: BP 107/67; PULSE 68; RESP 16; TEMP 36.6; O2SAT 94
--- NOTE | 2020-05-07 10:11 | PCM.TXEXTCAR ---
- Diet 05/05/20 15:46 Diet: Regular - General Type of Dietary Supplement:: Glucerna Shake Is pt able to select menu?: No Diet Comments: GLUCERNA WITH EACH MEAL. PLEASE SEND CHOCOLATE MILK ON EACH TRAY. - Routine Orders/Code Status Suppository Type: Dulcolax 10mg Suppository Frequency: Daily PRN Code Status: DNRCC-A - With intubation - Therapies Weight Bearing: Weight bearing as tolerated Extremity Affected:: Bilateral Lower Physical Therapy: Eval and Treat Occupational Therapy: Eval and Treat Speech Therapy: Eval and Treat - Allergies/Procedures Done in Hospital Allergies/Adverse Reactions: Allergies No Known Allergies Allergy (Verified 05/03/20 14:34) - Type of Care/Length of Stay Estimated LOS: Convalescent Care Less Than 30 days Type of Care Needed: Skilled Rehab Potential: Good Prognosis: Good - Additional Orders/Day of Discharge Day of Discharge: 04/12/20 - Dietary and Speech Recommendations Dietitian Recommendations/Changes: Will provide Glucerna with meals for additional abhinva/protein if consumed. Rec MANISH CHO controlled as pt able to tolerate. - Follow Up Care Primary Care Physician: Diony Barber III, MD [STAFF PHYSICIAN] - Please follow up with your Primary Care Physician in: In 2 weeks Please Follow Up With: Xavier Rivas MD When: In 2 to 3 weeks for parotitis with bilateral parotid gland atrophy
--- NOTE | 2020-05-07 10:13 | DS.PCM_ITS ---
Discharge Date and Diagnosis - Problem List Patient Problems: Active and Suspected Problems (Last Updated 05/07/20 @ 11:08 by Mary Lorenzana) COVID-19 (Acute 04/30/20) Stomatitis (Acute) Date of Admission: 05/03/20 Date of Discharge: 05/07/20 - Primary Discharge Diagnosis Acute Problems: Active Problems (Last Reviewed 05/03/20 @ 17:[address] Yoshi Phillip, ) COVID-19 (Acute) Stomatitis (Acute) - Secondary Discharge Diagnosis Chronic Problems: Chronic Problems (Last Reviewed 05/03/20 @ 17:[address] Yoshi Phillip, DO) Non-rheumatic aortic stenosis (Chronic) Essential (primary) hypertension (Chronic) Hyperlipidemia (Chronic) Lower extremity edema (Chronic) Lower extremity weakness (Chronic) Hospital Course and Treatment Operations: None Summary of Care Provided: The patient is a 75 year old M diagnosed with COVID-19 on April 29 admitted with throat pain, not eating and drinking and was found to have right parotid region pain, tenderness and swelling suggestive of right parotitis. 1. Acute COVID-19 pneumonia * Symptoms testing was established on the , quarantine through 05/20/2020 * Patient completed remdesivir. Discharge Decadron 6 mg oral daily to complete a total of 10 days Hypertension: Patient blood pressure 107/67, 140/90 to increase dose of lisinopril. Lisinopril dose decreased to 10 mg daily. 2. Stomatitis: Has much improved. As per previous hospitalist, does not appear to Thakur-Renny syndrome. On regular diet. Patient had [employer]. Patient had [facility] came with it. Advised to remove in SNF patient does not have any particular indication. Patient is on Biotene. 3. acute right parotitis: CT soft tissue neck does not show evidence of inflammation on 05/04. Lateral fat atrophy of parotids. On Unasyn. Augmentin to complete a total of 7 days. 4. Diabetes mellitus type 2 * Glimepiride resume * Sliding scale insulin 5. Failure to thrive * Secondary to Covid, stomatitis and dehydration. His diet is improving. 6. Chronic conditions: Hypothyroidism, depression and intertrigo: Patient on levothyroxine, antidepressant nystatin powder. 7. VTE prophylaxis: High risk: Continue with enoxaparin. Discharge medication reconciliation done. Discharge follow-up instructions completed. Discharge process discussed with the patient and all questions were answered to patient's satisfaction. Total time spent, exact 35 minutes on discharge meds reconciliation, examination, coordination of care with nurses and ancillary staff, review of imaging and blood test and discussion with the patient on follow-up instructions Clinical Impression(s) from Imaging Studies Chest X-Ray 05/03/20 15:35 IMPRESSION: Patchy bilateral infiltrates as described. Chest CTA 05/03/20 20:59 IMPRESSION: High-grade multifocal groundglass opacities typical for covid 19 other etiologies not excluded. Endovascular aortic valve and coronary artery disease. Electronically Signed: Xavier Dye MD at 23:17 EST , Service support , Soft Tissue Neck CT 05/04/20 18:01 IMPRESSION: Bilateral fatty atrophy of the parotid glands. No acute inflammatory change noted. Groundglass infiltrates consistent with covid 19. Microbiology Past 72 Hours 05/03/20 15:11 Urine, Catheterized Urine Culture - Final Culture exhibits no growth. 05/03/20 14:43 Blood Culture (Wb) - Right Hand Blood Culture - Preliminary No growth in 48 hours. 05/03/20 14:52 Blood Culture (Wb) - Left Hand Blood Culture - Preliminary No growth in 48 hours. Patient Problems: Active and Suspected Problems (Last Updated 05/07/20 @ 11:08 by Mary Lorenzana) COVID-19 (Acute 04/30/20) Stomatitis (Acute) Objective: Seen and examined. No fever or chills. Patient does not have cough, shortness of breath or sore throat. Patient has chronic dry mouth. Pain over right parotid region improved. Physical exam General: Alert, Oriented x3, Cooperative HEENT: Atraumatic, PERRLA, EOMI, Normocephalic Oral: No Gingival or Mucosal Lesions/ Ulcerations. Mild tenderness on the right parotid region, induration and swelling. Neck: Supple, No JVD, Negative Carotid Bruits Lungs: Air entry diminished in bilateral lung bases. No crepitation/rhonchi Cardiovascular: Regular rate, Regular Rhythm, Normal S1, Normal S2, No murmurs Abdomen: Bowel Sounds Present, Soft, Non Tender, Non-Distended : No renal angle tenderness. No suprapubic tenderness. Extremities: No edema, Capillary Refill Less than 3 Seconds Skin: No rashes, No breakdown Musculoskeletal: No Tenderness to Palpation of Joints or Extremities Neurological: Cranial nerves II-XII grossly intact, Deep Tendon Reflexes 2+/4 and Symmetrical, Neuro grossly intact Psych/Mental Status: Normal Affect, Appropriate. - Physical Exam Vitals/I&O's: Vital Signs Temp Pulse Resp BP Pulse Ox 97.9 F 68 16 107/67 94 05/07/20 09:14 05/07/20 09:14 05/07/20 09:14 05/07/20 09:14 05/07/20 09:14 Oxygen Flow Rate (L/min) 1 Oxygen Delivery Method Room Air Weight: 291 lb 0.163 oz Body Mass Index (BMI) 39.4 Intake and Output for Last 24 Hours 05/05/20 05/06/20 05/07/20 23:59 23:59 23:59 Intake Total 1478 / 1478 1348 / 1548 794 / 794 Output Total 600 / 600 500 / 500 Balance 878 / 878 1348 / 1548 294 / 294 Microbiology Past 72 Hours 05/03/20 15:11 Urine, Catheterized Urine Culture - Final Culture exhibits no growth. 05/03/20 14:43 Blood Culture (Wb) - Right Hand Blood Culture - Preliminary No growth in 48 hours. 05/03/20 14:52 Blood Culture (Wb) - Left Hand Blood Culture - Preliminary No growth in 48 hours. Current Medications Acetaminophen (Acetaminophen 325 Mg Tablet) 650 mg PO Q6H PRN PRN PRN Reason: Pain Score 1-10/Temp > 100.7 F Last Admin: 05/06/20 22:15 Dose: 650 mg Documented by: Albuterol Sulfate (Albuterol Ih 8.5 Gm (Proair) Inhaler (200 Puffs)) 2 puff INHALATION TID PRN PRN PRN Reason: hypoxia Ascorbic Acid (Ascorbic Acid 500 Mg Tablet) 500 mg PO BID [facility] Last Admin: 05/07/20 09:06 Dose: 500 mg Documented by: Aspirin (Aspirin E.C. 81 Mg Tablet) 81 mg PO DAILY [facility] Last Admin: 05/07/20 09:06 Dose: 81 mg Documented by: Bupropion HCl (Bupropion (Xl) 300 Mg Tablet.Xl) 300 mg PO DAILY [facility] Last Admin: 05/07/20 09:06 Dose: 300 mg Documented by: Buspirone HCl (Buspirone 5 Mg Tablet) 10 mg PO TID [facility] Last Admin: 05/07/20 05:52 Dose: 10 mg Documented by: Calamine/Phenol (Menthol/Lanolin/Calamine/Znox 113 Gm Tube) 1 applic TOPICAL BID [facility]; Protocol Last Admin: 05/07/20 09:00 Dose: 1 applicatio Documented by: Cholecalciferol (Cholecalciferol (Vit D3) 1,000 Unit (25mcg)) 1,000 unit PO DONTRELL LY [facility] Last Admin: 05/07/20 09:06 Dose: 1,000 unit Documented by: Dexamethasone (Dexamethasone 2 Mg Tablet) 6 mg PO DAILY [facility] Last Admin: 05/07/20 09:05 Dose: 6 mg Documented by: Enoxaparin Sodium (Enoxaparin 30 Mg/0.3 Ml Syringe) 30 mg SC BID [facility] Last Admin: 05/07/20 09:00 Dose: 30 mg Documented by: Finasteride (Finasteride 5 Mg Tablet) 5 mg PO DAILY [facility] Last Admin: 05/07/20 09:06 Dose: 5 mg Documented by: Remdesivir 100 mg/ Sodium (Chloride) 250 mls @ 125 mls/hr IV DAILY@2200 [facility] Stop: 05/07/20 23:59 Last Infusion: 05/07/20 00:03 Dose: Infused Documented by: Ampicillin Sodium/Sulbactam (Sodium 3 gm/ Sodium Chloride) 112 mls @ 150 mls/hr IV Q6 [facility] Last Infusion: 05/07/20 06:37 Dose: Infused Documented by: Ibuprofen (Ibuprofen 400 Mg Tablet) 400 mg PO Q4H PRN PRN PRN Reason: Pain Score 1-10/Temp > 100.7 F Last Admin: 05/06/20 06:12 Dose: 400 mg Documented by: Levothyroxine Sodium (Levothyroxine 100 Mcg Tablet) 400 mcg PO Denny@1000 [facility] Levothyroxine Sodium (Levothyroxine 100 Mcg Tablet) 200 mcg PO MoTuWeThFrSa@1000 [facility] Last Admin: 05/07/20 09:06 Dose: 200 mcg Documented by: Lidocaine HCl (Lidocaine 2% Viscous 15 Ml Udc) 10 ml PO Q3H PRN PRN Reason: sore mouth, throat Last Admin: 05/05/20 17:49 Dose: 10 ml Documented by: Lisinopril (Lisinopril 10 Mg Tablet) 10 mg PO DAILY [facility] Melatonin (Melatonin 10 Mg Tablet) 10 mg PO QHS [facility] Last Admin: 05/06/20 19:53 Dose: 10 mg Documented by: Metoprolol Succinate (Metoprolol(Xl)Succ 100 Mg Tablet) 100 mg PO DAILY [facility] Last Admin: 05/07/20 09:01 Dose: 100 mg Documented by: Multivitamins (Multivitamins,Therapeutic Tablet) 1 tablet PO DAILY [facility] Last Admin: 05/07/20 09:06 Dose: 1 tablet Documented by: Nystatin (Nystatin 500,000 Unit/5 Ml Udc) 500,000 unit PO BID [facility] Last Admin: 05/07/20 09:01 Dose: 500,000 unit Documented by: Nystatin (Nystatin Powder 15gm Bottle) 1 applic TOPICAL BID [facility]; Protocol Last Admin: 05/07/20 09:13 Dose: 1 applicatio Documented by: Ondansetron HCl (Ondansetron 4 Mg/2 Ml Vial) 4 mg IV Q8H PRN PRN PRN Reason: NAUSEA/VOMITING Pantoprazole Sodium (Pantoprazole Sodium 40 Mg Tablet) 40 mg PO DAILY [facility] Last Admin: 05/07/20 09:01 Dose: 40 mg Documented by: Saliva Substitute (Saliva Substitute 237 Ml Bottle) 15 ml MM 5X/DAY PRN PRN Reason: DRY MOUTH Last Admin: 05/05/20 13:20 Dose: 15 ml Documented by: Sertraline HCl (Sertraline 50 Mg Tablet) 50 mg PO DAILY [facility] Last Admin: 05/07/20 09:06 Dose: 50 mg Documented by: Sodium Chloride (0.9% Saline Lock 10 Ml Syringe) 10 - 40 ml IV UD PRN PRN Reason: SALINE FLUSH Last Admin: 05/05/20 13:20 Dose: 10 ml Documented by: Home Medications: Medications to take at Discharge Aspirin E.C. [Ecotrin] 81 mg PO DAILY@0800 06/18/13 Finasteride [Proscar] 5 mg PO DAILY 01/11/15 bupropion HCl 300 mg 24 hr tablet, extended release 300 mg PO DAILY 11/04/17 Sertraline HCl [Zoloft] 50 mg PO DAILY 04/06/19 buspirone 10 mg tablet 10 mg PO TID tab 12/03/19 levothyroxine 200 mcg tablet 200 mcg PO MOTUWETHFRSA tab 12/03/19 metoprolol succinate 100 mg tablet,extended release 24 hr 100 mg PO DAILY tab 12/07/19 Albuterol Sulfate [Proair Respiclick] 2 puff INHALATION TID PRN PRN 05/03/20 Ascorbic Acid 500 mg PO BID 05/03/20 Cholecalciferol (Vitamin D3) [Vitamin D3] 1,000 unit PO DAILY 05/03/20 Levothyroxine Sodium [Synthroid] 400 mcg PO DENNY 05/03/20 Melatonin 10 mg PO QHS 05/03/20 Multivitamin 1 tab PO DAILY 05/03/20 Nystatin 5 ml PO BID 05/03/20 Nystatin [Nystop] 1 applic TP BID 05/03/20 Omeprazole 40 mg PO DAILY 05/03/20 Vit C/E/Zn/Coppr/Lutein/Zeaxan [Preservision Areds 2 Softgel] 1 cap PO DAILY 05/03/20 Zinc 50 mg PO DAILY 05/03/20 Amox/Clavulanate Tablet [Augmentin Tablet] 875 mg PO Q12H #8 tab 05/07/20 Glimepiride 1 mg PO DAILY #0 tab 05/07/20 Lisinopril [Zestril] 10 mg PO DAILY #0 05/07/20 Saliva Substitute [Biotene] 15 ml MM 5X/DAY PRN bottle 05/07/20 dexAMETHasone [Dexamethasone] 6 mg PO DAILY #6 tab 05/07/20 Following Prescriptions Were Given to Patient: Amox/Clavulanate Tablet [Augmentin Tablet] 875 mg PO Q12H #8 tab Transmission Status: Received by [employer] [facility] dexAMETHasone [Dexamethasone] 6 mg PO DAILY #6 tab Transmission Status: Received by [employer] [place] Primary Care Physician: Diony Barber III, MD [STAFF PHYSICIAN] - Please follow up with your Primary Care Physician in: In 2 weeks Please Follow Up With: Xavier Rivas MD When: In 2 to 3 weeks for parotitis with bilateral parotid gland atrophy Medical Necessity - Tobacco Use Smoking Status: Never smoker Tobacco Use: Non-smoker Meaningful Use Info Meaningful Use Diagnoses (Choose all that apply): None applicable Inpatient E&M: 13127 Disch Hosp
[2020-05-07 10:25] VITALS: O2SAT 94
== END 2020-05-07 12:20 | disposition skilled nursing facility (03) | DRG 177 ==
LOC: ED 16:09 → MS2 17:39
PROVIDERS: Emergency Provider Emergency Medicine; PCP Family Medicine; Visit Provider Internal Medicine
DX: U07.1 COVID-19 (principal); J12.89 Other viral pneumonia; Z68.41 Body mass index [BMI] 40.0-44.9, adult; K11.21 Acute sialoadenitis; K12.1 Other forms of stomatitis; E86.0 Dehydration; R09.02 Hypoxemia; I10 Essential (primary) hypertension; E78.5 Hyperlipidemia, unspecified; E11.9 Type 2 diabetes mellitus without complications; Z79.84 Long term (current) use of oral hypoglycemic drugs; Z79.899 Other long term (current) drug therapy; E66.01 Morbid (severe) obesity due to excess calories; R62.7 Adult failure to thrive; F32.9 Major depressive disorder, single episode, unspecified; E03.9 Hypothyroidism, unspecified; L30.4 Erythema intertrigo
CPT/HCPCS: 36415; 70491; 71045; 71275; 80048; 80053; 81001; 82962; 83605; 84075; 84145; 84484; 85025; 85379; 87040; 87086; 93005; 97110; 97116; 97162; 97166; 97530; 97535; 99285; J7030; J7050; Q9967; A4216; J0295; J2405

== ENCOUNTER 2020-09-28 10:22 | Inpatient (IN) | payer MEDICARE, OTHER, SELFPAY ==
[2020-05-03 18:00] VITALS: BMI 39.4
[2020-09-28] VITALS (8 sets, daily range): BP systolic 146–190; BP diastolic 78–115; PULSE 60–76; RESP 16–20; TEMP 36.2–36.9; O2SAT 94–96; BMI 49.3; BMI 42.5
--- NOTE | 2020-09-28 10:35 | CT_ITS ---
STUDY: CT BRAIN WITHOUT CONTRAST REASON FOR EXAM: Male, 75 years old. Headache, weakness RADIATION DOSAGE (If Supplied By Facility): CTDIvol = ( 44.99 ) mGy, DLP = ( 863.60 ) mGycm TECHNIQUE: Transaxial CT imaging of the brain was performed without administration of intravenous contrast material. Individualized dose optimization techniques were used for this CT. COMPARISON: 2017 FINDINGS: Normal soft tissue structures. Normal calvarium. Normal size ventricles and extra-axial spaces for the patient''s age. There are areas of decreased attenuation within the white matter tracts of the supratentorial brain, consistent with microvascular disease changes. Normal basal ganglia and thalami. Normal brainstem. Normal cerebellum. There is no intracranial hemorrhage. There are no findings of an acute ischemic infarction. Normal visualized paranasal sinuses. CT/Brain/Head without Contrast IMPRESSION: Chronic involutional changes of the brain. No acute hemorrhage or significant interval change Electronically Signed: Trino He MD at 11:45 EDT , Service support ,
--- NOTE | 2020-09-28 10:36 | EKG12_ITS ---
Test Reason : WEAKNESS Blood Pressure : / mmHG Vent. Rate : 065 BPM Atrial Rate : 065 BPM P-R Int : 250 ms QRS Dur : 094 ms QT Int : 406 ms P-R-T Axes : 080 030 038 degrees QTc Int : 422 ms Sinus rhythm with 1st degree A-V block Nonspecific ST abnormality Abnormal ECG Confirmed by LADONNA OLIVERA, JOVANNA ([id number]), technical writer and editor ELSA MENJIVAR ([id number]) on 09/30/2020 11:40:40 A M Referred By: RAMIRO Confirmed By:RUSS DOUGHERTY MD
--- NOTE | 2020-09-28 10:37 | EDS_ITS ---
HPI History of Present Illness Chief Complaint: Weakness Informant: patient and SNF Onset/Context/Timing Onset: Weeks Context: Gradual Onset Current Severity: Moderate Maximum Severity: Moderate Narrative Narrative: Patient presents from [facility] secondary to increasing weakness over the past 1 month. They report has had difficulty with any ambulation over the past 2 weeks. He has very poor trunk control. Patient states he feels like his legs are weak and will not go where he tells him to go. He is afraid of falling. He reported has an appointment to see neurology in November. Patient denies any illness. He has some chronic back and hip pain that is unchanged from baseline. No recent falls to aggravate this. [facility] Medical History BPH (benign prostatic hyperplasia) Chest pain Congestive heart failure COVID-19 (04/30/20) Depression Essential (primary) hypertension GERD (gastroesophageal reflux disease) History of anxiety HTN (hypertension) Hyperlipidemia Hypothyroidism Lower extremity edema Lower extremity weakness Morbid obesity Non-rheumatic aortic stenosis Obstructive sleep apnea Osteoarthritis Peripheral autonomic neuropathy Postural hypotension Stomatitis Type 2 diabetes mellitus Unable to ambulate Home Medications aspirin 81 mg PO DAILY@0800 06/18/13 [History Last Taken 05/02/20] finasteride 5 mg PO DAILY 01/11/15 [History Last Taken 05/02/20] bupropion HCl 300 mg 24 hr tablet, extended release 300 mg PO DAILY 11/04/17 [History Last Taken 05/03/20] sertraline 50 mg PO DAILY 04/06/19 [History Last Taken 05/02/20] buspirone 10 mg tablet 10 mg PO TID tab 12/03/19 [History Last Taken 05/02/20] metoprolol succinate 100 mg tablet,extended release 24 hr 100 mg PO DAILY tab 12/07/19 [History Last Taken 05/02/20] cholecalciferol (vitamin D3) 1,000 unit PO DAILY 05/03/20 [History Last Taken 05/02/20] levothyroxine 200 mcg PO DAILY 05/03/20 [History Last Taken 05/01/20] melatonin 10 mg PO QHS 05/03/20 [History Last Taken 05/01/20] multivitamin 1 tab PO DAILY 05/03/20 [History Last Taken 05/02/20] omeprazole 40 mg PO DAILY 05/03/20 [History Last Taken 05/02/20] glimepiride 1 mg PO DAILY #0 tab 05/07/20 [Rx Last Taken 05/02/20] atorvastatin 10 mg PO QHS 09/28/20 [History Last Taken Unknown] carbidopa-levodopa 1 tab PO TID 09/28/20 [History Last Taken Unknown] docusate sodium [Colace] 100 mg PO DAILY 09/28/20 [History Last Taken Unknown] hydrocodone-acetaminophen 1 tab PO DAILY 09/28/20 [History Last Taken Unknown] hydrocodone-acetaminophen 1 tab PO Q8H PRN 09/28/20 [History Last Taken Unknown] lisinopril 20 mg PO DAILY 09/28/20 [History Last Taken Unknown] polyethylene glycol 3350 17 g PO DAILY 09/28/20 [History Last Taken Unknown] pregabalin 100 mg PO TID 09/28/20 [History Last Taken Unknown] Allergy/AdvReac Type Severity Reaction Status Date / Time No Known Allergies Allergy Verified 09/28/20 10:23 Family History Father Colon cancer Brother CAD (coronary artery disease) Diabetes Sister Diabetes Mother Heart disease Surgical History Ankle fracture, right H/O aortic valve replacement (07/28/18) H/O prosthetic heart valve History of carpal tunnel release History of open reduction and internal fixation (ORIF) procedure History of prostate surgery History of right and left heart catheterization (11/29/17) Social History Smoking Status: Never smoker ROS ROS ED Constitutional Constitutional ED: Denies chills or fever(s) Eyes Eyes: Denies change in vision ENT ENT ED: Denies sore throat Cardiovascular Cardiovascular: Denies chest pain Respiratory/Chest Respiratory/Chest: Denies cough or dyspnea Gastrointestinal Gastrointestinal: Denies abdominal pain, diarrhea, nausea or vomiting Genitourinary Genitourinary ED: Denies dysuria Musculoskeletal Musculoskeletal: Reports arthralgias and back pain Integumentary Denies rash Neurologic Neurologic: Reports weakness; Denies headache(s) Psychiatric Psychiatric: Denies anxiety or depression Endocrine Endocrinology: Denies polydipsia or polyuria Allergic/Immunologic Allergic/Immunologic ED: Denies urticaria EXAM Physical Exam Const Vital Signs: 09/28/20 10:24 09/28/20 10:38 09/28/20 12:43 Temperature 97.8 F Temperature Source Oral Pulse Rate 66 60 Respiratory Rate 18 18 Respiratory Effort Normal Respiratory Pattern Normal Blood Pressure 156/80 H 156/82 H Blood Pressure Mean 105 106 Pulse Ox 96 96 Oxygen Delivery Method Room Air Room Air Positive well nourished and well developed General Appearance ED: well developed HEENT Reports normocephalic and head/scalp atraumatic Eyes PERRL and EOMs intact bilaterally Neck supple Chest Wall inspection of chest normal and palpation of chest normal Resp normal respiratory effort and clear to auscultation bilaterally Cardio regular rate and regular rhythm GI normal to inspection, nondistended, normoactive bowel sounds Palpation: soft Extremity normal to inspection Neuro oriented x3 and no sensory deficits noted Neuro Narrative: Finger-nose testing in the upper extremities is normal. Strong hand grasp. Patient able to lift both legs off the bed to a count of 5. Normal sensation. Sensorium / Orientation: alert Psych mental status grossly normal Skin Skin Narrative: Healing wound noted to the right zapata. Superficial abrasion with central scab. No sign of secondary infection. MDM MDM Lab Data Attestation: I reviewed the patient's lab results. Labs: Laboratory Results - last 24 hr 09/28/20 09/28/20 09/28/20 11:05 11:05 12:10 WBC 7.0 RBC 4.45 L Hgb 12.8 L Hct 41.0 MCV 92.1 MCH 28.8 MCHC 31.2 L RDW Std Deviation 47.3 H RDW Coeff of Bob 14.0 Plt Count 186 MPV 11.0 Immature Gran % (Auto) 0.600 Neut % (Auto) 62.7 Lymph % (Auto) 22.3 [place] % (Auto) 9.1 Eos % (Auto) 4.7 Baso % (Auto) 0.6 Absolute Neuts (auto) 4.4 Absolute Lymphs (auto) 1.57 Nucleated RBC % 0 Sodium 138 Potassium 4.0 Chloride 104 Carbon Dioxide 29.0 Anion Gap 5 BUN 21 H Creatinine 1.15 Estim Creat Clear Calc 52.87 Est GFR (MDRD) Af Amer 79 Est GFR (MDRD) Non-Af 66 BUN/Creatinine Ratio 18.3 Glucose 337 H Calcium 9.4 Total Bilirubin 0.40 Direct Bilirubin 0.11 AST 23 ALT 21 Alkaline Phosphatase 82 Total Protein 7.4 Albumin 3.4 Globulin 4.0 Urine Color Yellow Urine Clarity Clear Urine pH 6.0 Ur Specific [place] 1.020 Urine Protein 15 H Urine Glucose (UA) 1000 H Urine Ketones Negative Urine Occult Blood Negative Urine Nitrite Negative Urine Bilirubin Negative Urine Urobilinogen Normal Ur Leukocyte Esterase Negative Urine RBC 0 SEEN Urine WBC 0 SEEN Ur Squamous Epith Cells 0 SEEN Urine Bacteria 0 SEEN Urine Mucus 0 SEEN Radiography Diagnostic Testing: Radiology Impression Brain CT 09/28/20 10:35 IMPRESSION: Chronic involutional changes of the brain. No acute hemorrhage or significant interval change Electronically Signed: Trino He MD at 11:45 EDT , Service support , EKG Initial EKG: Attestation: I personally reviewed and interpreted this EKG as follows: Interpretation: Sinus Rhythm (Sinus at 65. First-degree AV block. No acute ST change.) Treatment and Re-Evaluation Comments:: CT scan of the head is unremarkable. Lab work and urinalysis unremarkable. Nursing staff was able to [facility]. She is concerned that the patient has had a significant decline in the last 2 weeks and feels he needs to be admitted for therapy and neurology consultation. I will speak with the hospitalist. Discharge Plan Triage Chief Complaint: Weakness ED Provider: Olga Lidia Del Castillo Dx/Rx/DC Orders Clinical Impression: Weakness Prescriptions: No Action bupropion HCl 300 mg tablet extended release 24 hr 300 mg PO DAILY RF: 0 buspirone 10 mg tablet 10 mg PO TID RF: 0 aspirin 81 MG tablet 81 mg PO DAILY@0800 RF: 0 finasteride 5 MG tablet 5 mg PO DAILY RF: 0 sertraline 50 MG tablet 50 mg PO DAILY RF: 0 multivitamin 1 EACH tablet 1 tab PO DAILY RF: 0 omeprazole 20 MG capsule,delayed release(DR/EC) 40 mg PO DAILY RF: 0 levothyroxine 200 MCG tablet 200 mcg PO DAILY RF: 0 cholecalciferol (vitamin D3) 25 MCG capsule 1,000 unit PO DAILY RF: 0 melatonin 10 MG tablet 10 mg PO QHS RF: 0 glimepiride 1 mg tablet 1 mg PO DAILY Qty: 0 RF: 0 polyethylene glycol 3350 17 gram Powder In Packet 17 g PO DAILY RF: 0 atorvastatin 10 mg Tablet 10 mg PO QHS RF: 0 hydrocodone-acetaminophen 5-325 mg Tablet 1 tab PO DAILY RF: 0 hydrocodone-acetaminophen 5-325 mg Tablet 1 tab PO Q8H PRN (Reason: Pain (Scale Score 4-6)) RF: 0 carbidopa-levodopa 10-100 mg Tablet 1 tab PO TID RF: 0 docusate sodium [Colace] 100 mg Capsule 100 mg PO DAILY RF: 0 pregabalin 100 mg Capsule 100 mg PO TID RF: 0 lisinopril 20 MG tablet 20 mg PO DAILY RF: 0 metoprolol succinate 100 mg tablet extended release 24 hr 100 mg PO DAILY RF: 0 Primary Care Provider: Edgar Barger Referrals: Edgar Barger MD [Primary Care Provider] - Disposition Disposition: Acute Care Hospital [facility]
[2020-09-28 11:20] LABS: Absolute Lymphocyte Count 1.57 X10^3/uL (0.83-4.51); Absolute Neutrophil Count 4.4 X10^3/uL (2.0-7.7); Basophil# 0.04 X10^3/uL; Basophil% 0.6 % (0-1); Eosinophil# 0.33 X10^3/uL; Eosinophils% 4.7 % (0-5); Hemoglobin 12.8 g/dL (13.0-16.5); Lymphocyte # 1.57 X10^3/ul (0.83-4.51); Lymphocyte % 22.3 % (19-41); Mean Corp Hgb Conc 31.2 g/dL (32-36); Mean Corpuscular Hgb 28.8 pg (27.0-32.0); Mean Corpuscular Volume 92.1 fL (80-94); Monocyte# 0.64 X10^3/uL; Monocyte% 9.1 % (0-10); NRBC Flagged by Analyzer 0 % (0-5); Neutrophil # 4.41 X10^3/uL (2.7-7.7); Neutrophil % 62.7 % (47-70); Platelet Count 186 K/mm3 (150-450); RBC Distribution Width SD 47.3 fl (35.1-43.9); Red Blood Count 4.45 M/mm3 (4.6-6.2)
[2020-09-28 11:32] LABS: AST(SGOT) 23 U/L (15-37); Alanine Aminotransfer ALT/SGPT 21 U/L (16-61); Albumin, Serum 3.4 g/dL (3.2-5.0); Alkaline Phosphatase 82 U/L (45-117); Anion Gap 5 (5-15); BUN 21 mg/dL (7-18); BUN/Creat Ratio 18.3 RATIO (10-20); Bilirubin, Direct 0.11 mg/dL (0.00-0.30); Calcium,Total 9.4 mg/dL (8.5-10.1); Chloride 104 mmol/L (98-107); Creatinine, Serum 1.15 mg/dL (0.70-1.30); EST Glomerular Filtration Rate 66 mL/min (>60); Est Glom Filt Rate - Afr Amer 79 mL/min (>60); Estimated Creatinine Clearance 52.87 ml/min; Glucose 337 mg/dL (74-106); Protein, Total 7.4 g/dL (6.4-8.2); Sodium Level 138 mmol/L (136-145)
[2020-09-28 12:16] LABS: Bacteria 0 SEEN /hpf (None Seen); Mucous, Urine 0 SEEN /hpf (<or=2+); Red Blood Cells-Urine 0 SEEN /hpf (0-5); Squamous Epithelial Cells - UA 0 SEEN /hpf (0-5); White Blood Cells 0 SEEN /hpf (0-5)
[2020-09-28 12:27] LABS: Color, Urine Yellow (Yellow); Glucose, Dipstick 1000 mg/dl (Normal); Ketone-Dipstick Negative (Negative); Leukocyte Esterase-Dipstick Negative /ul (Negative); Nitrite-Dipstick Negative (Negative); Occult Blood-Urine Negative /ul (Negative); Protein-Dipstick 15 mg/dl (Negative); Urine Bilirubin Dipstick Negative (Negative); Urine Clarity Clear (Clear); Urine Urobilinogen Normal (Normal)
--- NOTE | 2020-09-28 14:00 | ED.RN ---
called and talked to Letitia Washington CALL CENTER SPECIALIST at the [facility], she reported concerns for pt's rapid decline within the past two weeks. she reported that his trunk control and inability to ambulate within the past two weeks. she stated that she was concerned about not being able to have pt seen until november by a neurologist.
--- NOTE | 2020-09-28 16:26 | HP.PCM.HOS_ITS ---
[facility] - General General Date of Admission: 09/28/20 HPI Narrative DMITRY SILVA, is a 75 M with an extensive PMH as outlined who presents with a complaint of worsening lower extremity weakness for 2 weeks prior to admission. Patient came in from his [place] [facility] care facility due to concerns of worsening weakness. Patient states he was able to ambulate with his walker until about 2 weeks ago. He states for the past 2 weeks, he has been getting progressively weak and is now not able to ambulate. He has a history of peripheral neuropathy for which he does not know the exact cause. He says his legs just feel weak. He denies any urinary or fecal incontinence and denies any trauma to his back. He says he has therapy once a day for an hour in his [place] [facility] facility. He denies any antecedent fever, chills, nausea vomiting, shortness of breath, or diarrhea. Review of systems otherwise negative. In the ED, vitals showed blood pressure of 162/87, pulse rate of 63, respiratory rate of 20 and temperature of 99.2 Fahrenheit. Saturating at 96% on room air. CBC showed hemoglobin of 12.8 with WBC of 7 and platelets of 186. Urinalysis showed urine glucose of 1000 mg per DL which showed no evidence of infection. Chemistry was essentially unremarkable. He has been admitted to be managed for worsening debility with unclear etiology. [facility] Medical History (Updated 09/28/20 @ 16:13 by Susan Prieto) BiPAP (biphasic positive airway pressure) dependence BPH (benign prostatic hyperplasia) Chest pain Chronic pain Congestive heart failure COVID-19 (04/30/20) Depression Essential (primary) hypertension GERD (gastroesophageal reflux disease) History of anxiety HTN (hypertension) Hyperlipidemia Hypothyroidism Lower extremity edema Lower extremity weakness Morbid obesity Non-rheumatic aortic stenosis Obstructive sleep apnea Osteoarthritis Peripheral autonomic neuropathy Postural hypotension Sleep apnea Stomatitis Type 2 diabetes mellitus Unable to ambulate Home Medications aspirin 81 mg PO DAILY@0800 06/18/13 [History Last Taken 09/28/20] finasteride 5 mg PO DAILY 01/11/15 [History Last Taken 09/28/20] bupropion HCl 300 mg 24 hr tablet, extended release 300 mg PO DAILY 11/04/17 [History Last Taken 09/28/20] sertraline 50 mg PO DAILY 04/06/19 [History Last Taken 09/28/20] buspirone 10 mg tablet 10 mg PO TID tab 12/03/19 [History Last Taken 09/28/20] metoprolol succinate 100 mg tablet,extended release 24 hr 100 mg PO DAILY tab 12/07/19 [History Last Taken 09/28/20] cholecalciferol (vitamin D3) 1,000 unit PO DAILY 05/03/20 [History Last Taken 09/28/20] levothyroxine 200 mcg PO DAILY 05/03/20 [History Last Taken 09/28/20] melatonin 10 mg PO QHS 05/03/20 [History Last Taken 09/27/20] multivitamin 1 tab PO DAILY 05/03/20 [History Last Taken 09/28/20] omeprazole 40 mg PO DAILY 05/03/20 [History Last Taken 09/28/20] glimepiride 1 mg PO DAILY #0 tab 05/07/20 [Rx Last Taken 09/28/20] atorvastatin 10 mg PO QHS 09/28/20 [History Last Taken 09/27/20] bisacodyl 10 mg [place] DAILY PRN 09/28/20 [History Last Taken Unknown] carbidopa-levodopa 1 tab PO TID 09/28/20 [History Last Taken 09/28/20] docusate sodium [Colace] 100 mg PO DAILY 09/28/20 [History Last Taken 09/28/20] hydrocodone-acetaminophen 1 tab PO DAILY 09/28/20 [History Last Taken 09/28/20] hydrocodone-acetaminophen 1 tab PO Q8H PRN 09/28/20 [History Last Taken 09/25/20] lisinopril 20 mg PO DAILY 09/28/20 [History Last Taken 09/28/20] magnesium hydroxide [Milk of Magnesia] 400 mg PO DAILY PRN 09/28/20 [History Last Taken Unknown] polyethylene glycol 3350 17 g PO DAILY 09/28/20 [History Last Taken 09/28/20] pregabalin 100 mg PO TID 09/28/20 [History Last Taken 09/28/20] Allergy/AdvReac Type Severity Reaction Status Date / Time No Known Allergies Allergy Verified 09/28/20 10:23 Family History Father Colon cancer Brother CAD (coronary artery disease) Diabetes Sister Diabetes Mother Heart disease Surgical History Ankle fracture, right H/O aortic valve replacement (07/28/18) H/O prosthetic heart valve History of carpal tunnel release History of open reduction and internal fixation (ORIF) procedure History of prostate surgery History of right and left heart catheterization (11/29/17) Social History Smoking Status: Never smoker ROS Constitutional Constitutional: Reports weakness; Denies anorexia, change in weight, chills, fatigue, fever(s) or malaise Eyes Eyes: Denies loss of vision ENT HEENT: Denies headache(s) or nasal congestion Cardiovascular Cardiovascular: Denies chest pain, dyspnea on exertion, edema, lightheadedness, palpitations or paroxysmal nocturnal dyspnea Respiratory/Chest Respiratory/Chest: Denies cough, dyspnea, hemoptysis, shortness of breath at rest or shortness of breath with exertion Gastrointestinal Gastrointestinal: Reports dyspepsia; Denies abdominal pain, diarrhea, hematemesis, hematochezia or loose stools Genitourinary Genitourinary: Denies burning urination, dysuria, urinary frequency, urinary hesitancy or urinary incontinence Musculoskeletal Musculoskeletal: Denies arthralgias, back pain, joint pain or myalgias Neurologic Neurologic: Denies abnormal gait, abnormal speech, confusion, disequilibrium, dizziness, focal weakness, numbness, paresthesias, seizure-like activity, seizures or tingling Psychiatric Psychiatric: Denies anxiety or depression Endocrine Endocrinology: Denies change in body appearance Hematologic/Lymphatic Hematologic/Lymphatic: Denies anemia Vital Signs Vital Signs Vital Signs: 09/28/20 10:24 09/28/20 10:38 09/28/20 12:43 Temperature 97.8 F Temperature Source Oral Pulse Rate 66 60 Respiratory Rate 18 18 Respiratory Effort Normal Respiratory Pattern Normal Blood Pressure 156/80 H 156/82 H Blood Pressure Mean 105 106 Pulse Ox 96 96 Oxygen Delivery Method Room Air Room Air 09/28/20 15:25 09/28/20 15:32 Temperature 97.2 F L 97.2 F L Temperature Source Temporal Temporal Pulse Rate 62 63 Respiratory Rate 16 20 H Respiratory Effort Respiratory Pattern Blood Pressure 151/95 H 162/87 H Blood Pressure Mean 113 112 Pulse Ox 96 96 Oxygen Delivery Method Room Air Room Air Physical Exam Const alert, oriented x3 and no apparent distress General Appearance: cooperative HEENT normocephalic, head/scalp atraumatic, hearing grossly normal bilaterally and moist oral mucous membranes Eyes EOMs intact bilaterally and conjunctivae normal Neck no lymphadenopathy, supple and no JVD Resp normal respiratory effort, no retractions and no use of accessory muscles Cardio regular rate, regular rhythm, S1 normal heart sound, S2 normal heart sound and no murmurs GI normal to inspection, nondistended, normoactive bowel sounds, soft to palpation, non-tender and non-distended Extremity normal to inspection, full ROM and no clubbing, cyanosis or edema Peripheral Pulses: Yes pulses 2+ throughout and brachial pulses present Skin no rashes or lesions noted Neuro oriented x3 Neuro Narrative: power in LEs is 4/5, normal sensation to light touch. Reflexes are diminished in lower extremities. Sensorium / Orientation: awake and alert Psych affect normal Lab / Micro Data Result Diagrams: 09/28/20 11:05 09/28/20 11:05 Labs: Laboratory Results - last 24 hr 09/28/20 09/28/20 09/28/20 11:05 11:05 12:10 WBC 7.0 RBC 4.45 L Hgb 12.8 L Hct 41.0 MCV 92.1 MCH 28.8 MCHC 31.2 L RDW Std Deviation 47.3 H RDW Coeff of Bob 14.0 Plt Count 186 MPV 11.0 Immature Gran % (Auto) 0.600 Neut % (Auto) 62.7 Lymph % (Auto) 22.3 [place] % (Auto) 9.1 Eos % (Auto) 4.7 Baso % (Auto) 0.6 Absolute Neuts (auto) 4.4 Absolute Lymphs (auto) 1.57 Nucleated RBC % 0 Sodium 138 Potassium 4.0 Chloride 104 Carbon Dioxide 29.0 Anion Gap 5 BUN 21 H Creatinine 1.15 Estim Creat Clear Calc 52.87 Est GFR (MDRD) Af Amer 79 Est GFR (MDRD) Non-Af 66 BUN/Creatinine Ratio 18.3 Glucose 337 H Calcium 9.4 Total Bilirubin 0.40 Direct Bilirubin 0.11 AST 23 ALT 21 Alkaline Phosphatase 82 Total Protein 7.4 Albumin 3.4 Globulin 4.0 Urine Color Yellow Urine Clarity Clear Urine pH 6.0 Ur Specific [place] 1.020 Urine Protein 15 H Urine Glucose (UA) 1000 H Urine Ketones Negative Urine Occult Blood Negative Urine Nitrite Negative Urine Bilirubin Negative Urine Urobilinogen Normal Ur Leukocyte Esterase Negative Urine RBC 0 SEEN Urine WBC 0 SEEN Ur Squamous Epith Cells 0 SEEN Urine Bacteria 0 SEEN Urine Mucus 0 SEEN Radiology Impression Brain CT 09/28/20 10:35 IMPRESSION: Chronic involutional changes of the brain. No acute hemorrhage or significant interval change Electronically Signed: Trino He MD at 11:45 EDT , Service support , Assessment & Plan Assessment/Plan (1) Weakness: PLAN: #Debility due to LE weakness * He states weakness has been worsening over the last 2 weeks. * admit to med surg * there is no evidence of infection, or trauma, and he has no urinary or fecal incontinence * PT/OT consult * fall precautions * consult neurology due to diminished reflexes and worsening weakness. * #History of aortic valve replacement: Stable #Benign essential hypertension * continue BP meds * #Hyperlipidemia: continue statin DVT prophylaxis: lovenox Code status; full code * Patient counseled about differences between full code, DNR CCA and DNR CCA. Patient elects to be DNRCCA no intubation. * total face to face time- 16 mins Visit Charges OBSV E&M: 53032 Initial observation care L2 Procedures Hospitalists Procedures: 92910 Advncd Care Plan 30 Min
[2020-09-28 16:40] LABS: Bedside Glucose 278 mg/dL (70-110)
--- NOTE | 2020-09-28 17:16 | TELEMED_ITS ---
[facility] Telemed has confirmed receipt of a request for visit. This document confirms receipt of the order initiating the consult. To find the results of the consultation, please view the patient's reports for the scanned Telemed Consult.
[2020-09-28] MEDS: 0.9% Normal Saline 1,000 ML 75 ML IV (17:55)
--- NOTE | 2020-09-28 22:34 | CDU_ITS ---
Reason For Study: CVA Rt. Velocities/BP Lt. Velocities/BP Prox CCA 77.3/14.7 cm/sec. Prox CCA 103.4/17.3 cm/sec. Mid CCA 77.3/13.4 cm/sec. Mid CCA 94.3/14.7 cm/sec. Dist CCA 63.0/13.4 cm/sec. Dist CCA 98.2/14.7 cm/sec. Prox ICA 63.0/18.6 cm/sec. Prox ICA 52.2/10.7 cm/sec. Mid ICA 59.1/14.7 cm/sec. Mid ICA 54.1/12.6 cm/sec. Dist ICA 82.5/23.9 cm/sec. Dist ICA 68.3/12.6 cm/sec. Rt. ICA/CCA = 1.1. Lt. ICA/CCA = .7. Prox ECA 87.8/8.2 cm/sec. Prox ECA 109.9/13.4 cm/sec. Rt. Vert. 44.7/9.5 cm/sec. Lt. Vert. 40.9/9.7 cm/sec. Right Extracranial There is homogeneous, smooth atherosclerotic plaque noted in the right common carotid artery. There is heterogeneous, irregular atherosclerotic plaque noted in the right internal carotid artery. There is heterogeneous, irregular atherosclerotic plaque noted in the right external carotid artery. Antegrade flow is noted in the right vertebral artery. Left Extracranial There is intimal thickening but no significant atherosclerotic plaque noted in the left common carotid artery. There is heterogeneous, irregular atherosclerotic plaque noted in the left internal carotid artery. There is heterogeneous, irregular atherosclerotic plaque noted in the left external carotid artery. Antegrade flow is noted in the left vertebral artery. Procedure Carotid Duplex [id number]. This is a Carotid Duplex examination using B-mode, color flow and specral Doppler. The exam was diagnostic. Exam performed in department. VL/Carotid Duplex Ultrasound Interpretation Summary Heterogenous plaque at the proximal right internal carotid artery with less sunny n 50% stenosis Less than 50% stenosis right external carotid artery Irregular plaque at the proximal left internal carotid artery with less than 50 % stenosis Less than 50% stenosis left external carotid artery Patent and antegrade vertebral arteries bilaterally Ordering Physician: Judy Smith Performed By: Moiz Gonzales RVT
--- NOTE | 2020-09-28 22:39 | PCM.HOSP.N ---
Hospitalist Note Contacted per Neurology. They reviewed patient case and recommended MRI lumbar spine, MRI brain, MRA head, Carotid US, HgBA1c, Lipid, addition of plavix 75 mg daily plus ongoing ASA 81 mg daily x 21 days then single therapy ASA transition following. Will obtain CPK. May consider increasing statin pending FLP and CPK. Noted likely need EMG outpatient at his Neurology follow-up.
[2020-09-28] MEDS: busPIRone 5 MG Tablet 10 MG PO (23:00)
[2020-09-28] MEDS: Atorvastatin Calcium 10 MG Tablet PO (23:00)
[2020-09-28] MEDS: MELATONIN 10 MG TABLET PO (23:01)
[2020-09-28] MEDS: Pregabalin 50 MG Capsule 100 MG PO (23:04)
[2020-09-28 23:14] LABS: CPK Total, Creatine Kinase 181 U/L (39-308)
[2020-09-28] MEDS: Nystatin Powder 15gm Bottle 1 APPLIC TOPICAL (23:18)
[2020-09-28 23:26] LABS: Bedside Glucose 248 mg/dL (70-110)
--- NOTE | 2020-09-28 23:35 | NURSING ---
Transferred to PCU at this time. Decision to move patient after TeleNeuro consultation. Per patient, does not need staff to notify family regarding transfer.
[2020-09-29] VITALS (14 sets, daily range): BP systolic 99–139; BP diastolic 59–72; PULSE 68–80; RESP 15–20; TEMP 36.4–37.2; O2SAT 90–95
--- NOTE | 2020-09-29 05:55 | MRI_ITS ---
STUDY: MRI LUMBAR SPINE WITHOUT CONTRAST REASON FOR EXAM: Male, 75 years old. lower extremity weakness TECHNIQUE: Standardized fat and water weighted pulse sequences were obtained in the sagittal and axial planes. COMPARISON: X-ray 09/17/2019, MRI 09/17/2016 FINDINGS: T12-L1: Normal endplates. Normal disc height, hydration and morphology. Normal bilateral facet joints. Normal central canal and bilateral lateral recesses. Normal bilateral intervertebral neural foramina. Normal lumbar lordosis. There is no substantial scoliosis. Normal conus medullaris that terminates at the L1/L2. L1-2: No change in the mild bilobed disc protrusion with a small right paracentral protrusion which produces mild spinal stenosis and mild right neural foraminal stenosis. L2-3: Disc desiccation and loss of disc height but no disc protrusion, spinal stenosis, or neural foraminal stenosis. L3-4: Mild bilateral facet hypertrophy with fluid in the facet joints consistent with instability and mild ligament flavum hypertrophy. No change in a 5 mm retrolisthesis of L3 on L4. There is been interval resolution of the left paracentral disc protrusion with a mild bilobed disc protrusion which produces moderate spinal stenosis with moderate bilateral lateral recess stenosis with abutment of the L4 nerve roots bilaterally and the moderate by lateral neural foraminal stenosis. L4-5: Mild bilateral facet hypertrophy and ligament flavum hypertrophy. No change in the 5 mm retrolisthesis of L4 and L5. Interval development of a mild broad disc protrusion which produces moderate spinal stenosis with moderate bilateral recess stenosis with abutment of the L5 nerve roots bilaterally and moderate bilateral neural foraminal stenosis. L5-S1: Mild bilateral facet hypertrophy and ligament flavum hypertrophy. No change in the 2 mm retrolisthesis of L5 on S1 with a mild broad disc osteophyte complex which produces mild spinal stenosis and moderate bilateral neural foraminal stenosis. Normal visualized sacral ala. Mild friction related edema of the posterior subcutaneous kidneys fat appear MRI/Spine Lumbar (Routine) IMPRESSION: Improved degenerative disc disease at L3/L4 but otherwise similar to the prior study. Electronically Signed: Justin Galindo MD at 11:01 EDT Tel , Service support ,
--- NOTE | 2020-09-29 05:55 | MRI_ITS ---
STUDY: MRI BRAIN WITHOUT CONTRAST REASON FOR EXAM: Male, 75 years old. CVA TECHNIQUE: Standardized multiplanar fat and water weighted pulse sequences were obtained. COMPARISON: None. FINDINGS: There is moderate cerebral atrophy with widening of the extra-axial spaces and ventricular dilatation. There are multiple white matter hyperintensities, distributed throughout the deep white matter tracts of the cerebral hemispheres, consistent with moderate chronic white matter ischemic changes. There is no evidence for recent intracranial ischemia or other cause of cytotoxic edema on diffusion weighted imaging (DWI). Normal T2* images of the brain without demonstrated susceptibility artifact. There is no demonstrated hemosiderin stain. Normal bilateral basal ganglia. Normal thalami. There is no extra-axial fluid accumulation. Normal flow voids within the major intracranial circulation suggesting patency by spin echo criteria. Normal sella turcica, pituitary gland, infundibular stalk, optic chiasm and hypothalamus. Normal tectal plate and pineal gland. Normal midbrain, juan and medulla. Normal cerebellum. Normal basal cisterns. Normal bilateral temporal bones. Normal bilateral internal auditory canals. No demonstrated orbital abnormality, within the constraints of a routine brain study. Normal visualized paranasal sinuses. Normal calvarium and skull base. Normal visualized soft tissue structures. Normal visualized upper cervical spine. MRI/Brain without Contrast IMPRESSION: Involutional changes of the brain, as described above. No acute infarct. Electronically Signed: Justin Galindo MD at 10:39 EDT Tel , Service support ,
[2020-09-29] MEDS: HYDROcodone Bitartrate/Apap 5/325 Tablet PO ×2 (06:32→10:55)
[2020-09-29] MEDS: Levothyroxine 100 MCG Tablet 200 MCG PO (06:34)
[2020-09-29] MEDS: busPIRone 5 MG Tablet 10 MG PO ×3 (06:35→22:54)
[2020-09-29] MEDS: Carbidopa/Levodopa 10/100 Tablet PO ×3 (06:37→16:31)
[2020-09-29 06:39] LABS: Absolute Lymphocyte Count 1.75 X10^3/uL (0.83-4.51); Basophil# 0.03 X10^3/uL; Basophil% 0.5 % (0-1); Eosinophil# 0.34 X10^3/uL; Eosinophils% 5.2 % (0-5); Hematocrit 37.8 % (40-54); Hemoglobin 11.9 g/dL (13.0-16.5); Lymphocyte # 1.75 X10^3/ul (0.83-4.51); Lymphocyte % 26.6 % (19-41); Mean Corp Hgb Conc 31.5 g/dL (32-36); Mean Corpuscular Hgb 28.9 pg (27.0-32.0); Mean Corpuscular Volume 91.7 fL (80-94); Mean Platelet Vol. 11.6 fl (6.2-12.0); Monocyte# 0.48 X10^3/uL; Monocyte% 7.3 % (0-10); NRBC Flagged by Analyzer 0 % (0-5); Neutrophil # 3.95 X10^3/uL (2.7-7.7); Neutrophil % 59.9 % (47-70); Platelet Count 180 K/mm3 (150-450); RBC Distribution Width CV 13.8 % (11.6-14.6); RBC Distribution Width SD 46.5 fl (35.1-43.9); Red Blood Count 4.12 M/mm3 (4.6-6.2); White Blood Count 6.6 K/mm3 (4.4-11.0)
[2020-09-29] MEDS: Pregabalin 50 MG Capsule 100 MG PO ×3 (06:40→22:56)
[2020-09-29 07:05] LABS: Bedside Glucose 282 mg/dL (70-110)
[2020-09-29 07:15] LABS: Anion Gap 6 (5-15); BUN 17 mg/dL (7-18); BUN/Creat Ratio 16.2 RATIO (10-20); Chloride 104 mmol/L (98-107); Cholesterol 157 mg/dL (200); Creatinine, Serum 1.05 mg/dL (0.70-1.30); EST Glomerular Filtration Rate 73 mL/min (>60); Est Glom Filt Rate - Afr Amer 88 mL/min (>60); Estimated Creatinine Clearance 65.69 ml/min; Glucose 282 mg/dL (74-106); High Density Lipoprotein 40 mg/dL; Magnesium 1.8 mg/dL (1.6-2.6); Potassium 3.9 mmol/L (3.5-5.1); Sodium Level 138 mmol/L (136-145); Thyroid Stim Hormone (TSH) 0.47 uIU/mL (0.358-3.74); Triglycerides 161 mg/dL; Very Low Density Lipoprotein 32 mg/dL (5-40)
[2020-09-29] MEDS: LORazepam 2 MG/ML Syringe 1 MG IV (08:42)
[2020-09-29 08:49] LABS: Hemoglobin A1c 8.7 % (3.8-5.6)
--- NOTE | 2020-09-29 08:50 | ECHOCS_ITS ---
Reason For Study: TIA/CVA Procedure This was a 2D Doppler, Color Flow transthoracic echocardiogram. Contrast injection was performed. The exam was of poor technical quality due to body habitus, pt supine. Exam performed portable in patient room. Left Ventricle Normal LV size. The estimated ejection fraction is 60 %. No evidence for diastolic dysfunction. No regional wall motion abnormalities noted. Right Ventricle Normal RV size. Normal systolic function. Atria The left atrium is mildly enlarged. Normal right atrium. No doppler evidence for ASD. Mitral Valve There is no mitral valve stenosis. No mitral valve insufficiency. Tricuspid Valve There is no tricuspid stenosis. Unable to estimate RV systolic pressure due to inadequate jet, pulmonary artery pressure probably normal. Aortic Valve There is no aortic stenosis. No aortic valve insufficiency. TAVR valve well seat and functioning nomally. Pulmonic Valve There is no pulmonic valvular stenosis. No pulmonic valve insufficiency. Great Vessels Mildly dilated aortic root. Pericardium/Pleural No pericardial effusion. Medication Diluted definity 4ml given slow IV push to enhance endocardial definition. Previously negative bubble study on DOUGLAS. MMode/2D Measurements & Calculations LVIDd: 4.8 cm IVSd: 1.1 cm LVOT diam: 2.0 cm LVIDs: 3.4 cm LVPWd: 1.0 cm FS: 30.1 % LVOT area: 3.1 cm2 Ao root diam: 4.0 cm LA dimension(2D): 4.0 cm Time Measurements MV dec time: 0.34 sec Doppler Measurements & Calculations MV E max shreyas: 45.3 cm/sec Lat Peak E' Shreyas: 6.0 cm/sec Med Peak E' Shreyas: 4.5 cm/sec MV A max shreyas: 59.9 cm/sec E/E' lat: 7.6 E/E' med: 10.2 MV E/A: 0.76 Ao V2 max: 87.9 cm/sec LV V1 max: 88.7 cm/sec SV(LVOT): 43.8 ml Ao max P.1 mmHg LV V1 max P.1 mmHg Ao V2 mean: 61.0 cm/sec LV V1 mean P.4 mmHg Ao mean P.6 mmHg LV V1 mean: 54.0 cm/sec Ao V2 VTI: 12.8 cm LV V1 VTI: 14.2 cm CHRISTOFER(I,D): 3.4 cm2 CHRISTOFER(V,D): 3.1 cm2 ECHO/Echo Complete W/ Contrast Interpretation Summary The estimated ejection fraction is 60 %. No evidence for diastolic dysfunction. The study was technically difficult. Contrast injection was performed. Ordering Physician: Kitty Senior Referring Physician: SILVIA HIDALGO Performed By: Alka Calvert, ANTHONYCS, RVT
--- NOTE | 2020-09-29 09:00 | MRI_ITS ---
STUDY: MRA OF THE HEAD WITHOUT CONTRAST REASON FOR EXAM: Male, 75 years old. CVA TECHNIQUE: 3-D [id number] (TOF) imaging was performed with MIPs. The study was performed unenhanced. COMPARISON: None. FINDINGS: Normal bilateral petrous carotid arteries. Normal right cavernous carotid artery with a normal supraclinoid bifurcation. Normal left cavernous carotid artery with a normal supraclinoid bifurcation. Normal right A1 segments of the anterior cerebral artery. Normal left A1 segments of the anterior cerebral artery. There is non-visualization of the anterior communicating artery (ACOM). Normal bilateral A2 segments of the anterior cerebral arteries. Normal right M1 and M2 segments of the middle cerebral arteries, with a normal M1 bifurcation. Normal left M1 and M2 segments of the middle cerebral arteries, with a normal M1 bifurcation. Normal right posterior communicating artery (PCOM). Normal left posterior communicating artery (PCOM). Normal bilateral vertebral arteries. Normal basilar artery with a normal basilar bifurcation. The visualized bilateral superior cerebellar (SCA) arteries are normal. Normal bilateral P1, P2 and visualized P3 segments of the posterior cerebral arteries. There is no demonstrated aneurysm of the [place] of [place]. There is no major vessel occlusion or hemodynamically significant stenosis. There is no demonstrated abnormality of the visualized brain. MRI/MRA Head ONLY without Contrast IMPRESSION: Normal MRA of the head Electronically Signed: Justin Galindo MD at 10:42 EDT Tel , Service support ,
[2020-09-29] MEDS: Nystatin Powder 15gm Bottle 1 APPLIC TOPICAL ×2 (10:50→22:54)
[2020-09-29] MEDS: Clopidogrel Bisulfate 75 MG Tablet PO (10:51)
[2020-09-29] MEDS: Enoxaparin 40 MG/0.4 ML Syringe SC (10:51)
[2020-09-29] MEDS: Finasteride 5 MG Tablet PO (10:51)
[2020-09-29] MEDS: Lisinopril 20 MG Tablet PO (10:52)
[2020-09-29] MEDS: buPROPion (XL) 300 MG TABLET.XL PO (10:52)
[2020-09-29] MEDS: Aspirin E.C. 81 MG Tablet PO (10:52)
[2020-09-29] MEDS: Sertraline 50 MG Tablet PO (10:52)
[2020-09-29] MEDS: Docusate Sodium 100 MG Capsule PO (10:52)
[2020-09-29] MEDS: Metoprolol(XL)Succ 100 MG Tablet PO (10:52)
[2020-09-29] MEDS: Pantoprazole Sodium 40 MG Tablet PO (10:52)
[2020-09-29] MEDS: Polyethylene Glycol 3350 17 GM PACKET PO (10:53)
[2020-09-29 12:15] LABS: Bedside Glucose 271 mg/dL (70-110)
--- NOTE | 2020-09-29 13:34 | PCM.PN.HOSP ---
Documented by User: Kitty Senior NP, [facility] MAGISTRATE-C 09/29/20 13:41 Subjective Subjective Patient seen and examined. Reports significantly worsening weakness over the past 2 weeks. States he is now having difficulty feeding himself, worsening upper extremity tremors. Denies unilateral weakness or focal deficits. Imaging negative for acute stroke. Objective Data Objective Data Vital Signs: Vital Signs Temp Pulse Resp BP Pulse Ox 98.5 F 77 20 H 121/59 H 94 09/29/20 10:41 09/29/20 10:52 09/29/20 10:41 09/29/20 10:41 09/29/20 10:41 Oxygen Delivery Method Room Air Weight: 313 lb 11.485 oz Body Mass Index (BMI) 42.5 Intake & Output: Intake and Output for Last 24 Hours 09/27/20 09/28/20 09/29/20 23:59 23:59 23:59 Intake Total 0 / 0 1240 / 1240 Balance 0 / 0 1240 / 1240 Lab / Micro Data Result Diagrams: 09/29/20 05:55 09/29/20 05:55 Labs: Laboratory Results - last 24 hr 09/28/20 09/28/20 09/28/20 11:05 16:19 22:47 WBC RBC Hgb Hct MCV MCH MCHC RDW Std Deviation RDW Coeff of Bob Plt Count MPV Immature Gran % (Auto) Neut % (Auto) Lymph % (Auto) [place] % (Auto) Eos % (Auto) Baso % (Auto) Absolute Neuts (auto) Absolute Lymphs (auto) Nucleated RBC % Sodium Potassium Chloride Carbon Dioxide Anion Gap BUN Creatinine Estim Creat Clear Calc Est GFR (MDRD) Af Amer Est GFR (MDRD) Non-Af BUN/Creatinine Ratio Glucose Hemoglobin A1c Calcium Magnesium Total Creatine Kinase 181 Triglycerides Cholesterol LDL Cholesterol VLDL Cholesterol HDL Cholesterol TSH POC Glucose 278 H 248 H 09/29/20 09/29/20 09/29/20 05:55 05:55 05:55 WBC 6.6 RBC 4.12 L Hgb 11.9 L Hct 37.8 L MCV 91.7 MCH 28.9 MCHC 31.5 L RDW Std Deviation 46.5 H RDW Coeff of Obb 13.8 Plt Count 180 MPV 11.6 Immature Gran % (Auto) 0.500 Neut % (Auto) 59.9 Lymph % (Auto) 26.6 [place] % (Auto) 7.3 Eos % (Auto) 5.2 H Baso % (Auto) 0.5 Absolute Neuts (auto) 4.0 Absolute Lymphs (auto) 1.75 Nucleated RBC % 0 Sodium 138 Potassium 3.9 Chloride 104 Carbon Dioxide 28.0 Anion Gap 6 BUN 17 Creatinine 1.05 Estim Creat Clear Calc 65.69 Est GFR (MDRD) Af Amer 88 Est GFR (MDRD) Non-Af 73 BUN/Creatinine Ratio 16.2 Glucose 282 H Hemoglobin A1c 8.7 H Calcium 9.0 Magnesium 1.8 Total Creatine Kinase Triglycerides 161 Cholesterol 157 LDL Cholesterol 85 VLDL Cholesterol 32 HDL Cholesterol 40 TSH 0.47 POC Glucose 09/29/20 09/29/20 06:48 12:11 WBC RBC Hgb Hct MCV MCH MCHC RDW Std Deviation RDW Coeff of Bob Plt Count MPV Immature Gran % (Auto) Neut % (Auto) Lymph % (Auto) [place] % (Auto) Eos % (Auto) Baso % (Auto) Absolute Neuts (auto) Absolute Lymphs (auto) Nucleated RBC % Sodium Potassium Chloride Carbon Dioxide Anion Gap BUN Creatinine Estim Creat Clear Calc Est GFR (MDRD) Af Amer Est GFR (MDRD) Non-Af BUN/Creatinine Ratio Glucose Hemoglobin A1c Calcium Magnesium Total Creatine Kinase Triglycerides Cholesterol LDL Cholesterol VLDL Cholesterol HDL Cholesterol TSH POC Glucose 282 H 271 H Radiography Diagnostic Testing: Radiology Impression Brain MRI 09/29/20 05:55 IMPRESSION: Involutional changes of the brain, as described above. No acute infarct. Electronically Signed: Justin Galindo MD at 10:39 EDT Tel , Service support , Lumbar Spine MRI 09/29/20 05:55 IMPRESSION: Improved degenerative disc disease at L3/L4 but otherwise similar to the prior study. Electronically Signed: Justin Galindo MD at 11:01 EDT Tel , Service support , Head MRA 09/29/20 09:00 IMPRESSION: Normal MRA of the head Electronically Signed: Justin Galindo MD at 10:42 EDT Tel , Service support , Physical Exam Const alert, oriented x3 and no apparent distress Orientation / Consciousness: awake, oriented to person, oriented to place and oriented to time HEENT normocephalic and moist oral mucous membranes Eyes PERRL, EOMs intact bilaterally and conjunctivae normal Neck no lymphadenopathy Resp normal respiratory effort and clear to auscultation bilaterally Cardio regular rate, regular rhythm and no murmurs Peripheral Pulses: pulses 2+ throughout GI normal to inspection, nondistended, normoactive bowel sounds, non-tender and non-distended Extremity normal to inspection Skin no rashes or lesions noted Lesions: no lesions Rashes: no rashes Trauma: no lacerations or abrasions Neuro oriented x3 Neuro Narrative: Bilateral lower extremity weakness. Sensorium / Orientation: awake and alert Psych affect normal Assessment & Plan Assessment/Plan (1) Weakness: PLAN: 1. Progressive weakness-CVA ruled out. MRI of brain, MRA of head and neck and lumbar spine MRI unremarkable. Echocardiogram and carotid ultrasound pending. Initial [facility] neurology consult recommended outpatient EMG and neurology follow-up. Patient was recently started on Sinemet by SNF physician due to suspected Parkinson's. Patient has had significant decline in functional status over the past 2 weeks and is now having difficulty feeding himself, worsening upper extremity tremors and requiring X4 assist. PT/OT. Will reconsult [facility] neurology via phone for any additional recommendations prior to return to SNF for further rehab and outpatient follow-up with neurology. 2. History of aortic valve replacement 3. Hypertension-stable, continue metoprolol, lisinopril 4. Hyperlipidemia-continue statin 5. Morbid obesity-encouraged diet and lifestyle modifications. 6. Depression/anxiety-on bupropion, BuSpar, sertraline. 7. Type 2 diabetes mellitus-oral regimen on hold. Accu-Cheks with sliding scale insulin. 8. Chronic lower extremity neuropathy-on pregabalin. 9. GERD-continue PPI. 10. Hypothyroidism-continue Synthroid. 11. BPH-on finasteride. DVT prophylaxis- Lovenox pr Discharge planning: Await follow-up neurology consult/phone call for additional recommendations. This patient was seen by YAJAIRA Coburn under the supervision of Dr. Wilkins. Documented by User: Dr. Roni Wilkins MD 09/29/20 14:24 Objective Data Lab / Micro Data Result Diagrams: 09/29/20 05:55 09/29/20 05:55 Assessment & Plan Addt'l Comments This patient was seen in conjunction with YAJAIRA Coburn . I have independently interviewed and examined the patient and reviewed pertinent historical, laboratory, and other data. Please refer to YAJAIRA Coburn note for details of this patient's presentation, findings, and recommendations. I have reviewed YAJAIRA Coburn note and concur with documented findings. In brief, patient is a patient is a 75-year-old gentleman [facility] sent to the ED with increasing weakness. Patient reports months of lower extremity weakness which has worsened rapidly over the past 2 weeks Physical Examination: GENERAL: cooperative HEENT: Atraumatic; EYES; Anicteric, Normal Conjunctiva NECK; supple, normal thyroid, RESPIRATORY: Diminished to auscultation CARDIOVASCULAR: Regular S1 S2, GI: soft, normoactive bowel sounds, : No Renal angle tenderness; EXTREMITIES: No edema, no clubbing, MUSCULOSKELETAL: no muscle waisting NEURO: Awake; SKIN: No Rash PSYCH; Flat affect Assessment: 1. Bilateral lower extremity weakness 2. Essential hypertension 3. Dyslipidemia 4. Valvular heart disease with history of aortic valve replacement 5. Morbid obesity with BMI of 42.5 6. Diabetes mellitus type 2 7. Hypothyroidism 8. BPH 9. Depression with anxiety 10. GERD 11. DVT prophylaxis Recommendations: 1. I have discussed the results of my overview and impressions with the patient 2. Options for management were reviewed Visit Charges OBSV E&M: 37806 Subsequent observation care L3
--- NOTE | 2020-09-29 14:54 | CHAPLAIN ---
Type of Pastoral Visit _x__ Initial Visit ___ Follow-up Visit ___ On-call Visit ___ General Patient Visit ___ Spiritual Assessment ___ Family Conference ___ Bereavement ___ Rapid Response ___ Code Blue ___ Other (describe below) Pastoral Care Referral From _x__ Patient ___ Family ___ Nurse ___ Physician ___ Photo Technician ___ Desk Sergeant ___ Other (describe below) Sacrament/Intervention _x__ Active listening ___ Anointing ___ Holiness ___ Bereavement ___ Communion _x__ Rebekah exploration ___ _x__ Life review _x__ Prayer ___ Reconciliation ___ Sacrament of Sick _x__ Supportive presence ___ Wedding ___ Other (describe below) Pastoral Comments patient had specific questions to ask of a spiritual nature; pt looked for some insight or discussion on matters of rebekah; life review and current life situation also expressed; prayer welcomed
--- NOTE | 2020-09-29 16:11 | CASEMGMT ---
Patient is from [place]. [facility] faxed updates to [place]. Ellyn Stephenson UNDERWRITING SERVICE REPRESENTATIVE ROBERT
[2020-09-29 16:30] LABS: Bedside Glucose 266 mg/dL (70-110)
[2020-09-29] MEDS: Insulin Lispro 100 UNIT/ML INSULN.PEN SC ×2 (16:31→22:54)
[2020-09-29] MEDS: Atorvastatin Calcium 10 MG Tablet PO (22:54)
[2020-09-29] MEDS: MELATONIN 10 MG TABLET PO (22:55)
[2020-09-29 23:06] LABS: Bedside Glucose 251 mg/dL (70-110)
[2020-09-30] VITALS (12 sets, daily range): BP systolic 123–154; BP diastolic 68–82; PULSE 68–76; RESP 14–24; TEMP 36.4–37.2; O2SAT 92–95
[2020-09-30] MEDS: Levothyroxine 100 MCG Tablet 200 MCG PO (06:00)
[2020-09-30] MEDS: busPIRone 5 MG Tablet 10 MG PO ×2 (06:00→16:24)
[2020-09-30] MEDS: Carbidopa/Levodopa 10/100 Tablet PO ×3 (06:00→16:24)
[2020-09-30] MEDS: Pregabalin 50 MG Capsule 100 MG PO ×2 (06:03→13:21)
[2020-09-30] MEDS: Insulin Lispro 100 UNIT/ML INSULN.PEN SC ×2 (07:03→12:19)
[2020-09-30 07:55] LABS: Bedside Glucose 274 mg/dL (70-110)
--- NOTE | 2020-09-30 09:00 | MRI_ITS ---
STUDY: MRI CERVICAL SPINE WITHOUT CONTRAST REASON FOR EXAM: Male, 75 years old. Lower extremity weakness -- without contrast TECHNIQUE: Standardized fat and water weighted pulse sequences were obtained in the sagittal and axial planes. COMPARISON: None FINDINGS: Normal foramen magnum and brainstem-cervical cord junction. Normal craniovertebral junction. Normal anterior atlantoaxial articulation. Normal odontoid process. There is straightening of the normal cervical lordosis. Normal vertebral bodies and posterior osseous elements. C2-3: Mild broad disc osteophyte complex produces mild spinal stenosis but no neural foraminal stenosis. C3-4: Moderate broad disc osteophyte complex produces moderate spinal stenosis with abutment of the central spinal cord and mild bilateral neural foraminal stenosis. C4-5: Moderate broad disc osteophyte complex produces moderate spinal stenosis with abutment the central spinal cord and mild by lateral neural foraminal stenosis. C5-6: Moderate broad disc osteophyte complex produces moderate spinal stenosis with abutment the central spinal cord and mild bilateral neural foraminal stenosis. C6-7: Mild broad disc osteophyte complex produces mild spinal stenosis but no neural foraminal stenosis. C7-T1: Normal endplates. Normal disc height, signal and morphology. Normal central canal and intervertebral neural foramina. Normal cervical cord. Normal visualized soft tissue structures. MRI/Spine Cervical (Routine) IMPRESSION: Diffuse degenerative disc disease with straightening of the normal lordotic curvature. Electronically Signed: Justin Galindo MD at 16:00 EDT Tel , Service support ,
[2020-09-30] MEDS: Docusate Sodium 100 MG Capsule PO (09:15)
[2020-09-30] MEDS: Sertraline 50 MG Tablet PO (09:15)
[2020-09-30] MEDS: Aspirin E.C. 81 MG Tablet PO (09:15)
[2020-09-30] MEDS: buPROPion (XL) 300 MG TABLET.XL PO (09:15)
[2020-09-30] MEDS: Pantoprazole Sodium 40 MG Tablet PO (09:15)
[2020-09-30] MEDS: Metoprolol(XL)Succ 100 MG Tablet PO (09:15)
[2020-09-30] MEDS: Lisinopril 20 MG Tablet PO (09:15)
[2020-09-30] MEDS: Clopidogrel Bisulfate 75 MG Tablet PO (09:15)
[2020-09-30] MEDS: Finasteride 5 MG Tablet PO (09:16)
[2020-09-30] MEDS: Enoxaparin 40 MG/0.4 ML Syringe SC (09:16)
[2020-09-30] MEDS: Nystatin Powder 15gm Bottle 1 APPLIC TOPICAL (09:17)
[2020-09-30] MEDS: Polyethylene Glycol 3350 17 GM PACKET PO (09:24)
--- NOTE | 2020-09-30 09:30 | MRI_ITS ---
STUDY: MRI THORACIC SPINE WITHOUT CONTRAST REASON FOR EXAM: Male, 75 years old. lower extremity weakness -- without contrast TECHNIQUE: Standardized fat and water weighted pulse sequences were obtained in the sagittal and axial planes. COMPARISON: None. FINDINGS: Normal kyphosis of the thoracic spine. Mild S-shaped scoliosis with levoscoliosis of the upper thoracic spine and dextroscoliosis lower thoracic spine. T1-2, T2-3, T3-4, T4-5, T5-6, T6-7, T7-8, T8-9, T9-10, T10-11, T11-12: Normal endplates. Normal disc hydration, heights and morphology of the corresponding intervertebral discs. Normal central canal and intervertebral neural foramina at the corresponding levels. Normal visualized thoracic cord. Normal conus medullaris that terminates at the L1.. The soft tissue structures are unremarkable. MRI/Spine Thoracic (Routine) IMPRESSION: Mild S-shaped scoliosis. No spinal stenosis or cord compression. Electronically Signed: Justin Galindo MD at 15:56 EDT Tel , Service support ,
--- NOTE | 2020-09-30 11:42 | TREXTCAR_ITS ---
Diet 09/29/20 09:17 Diet: Cardiac: Calorie-Controlled Is pt able to select menu?: Yes How many daily calories?: 1800 calorie Routine Orders/Code Status Enema Type: Fleetz Enema Frequency: Daily PRN Suppository Type: Dulcolax 10mg Suppository Frequency: Daily PRN Routine Lab Work: - (Weekly CBC, BMP) Code Status: DNRCC-A (No intubation) Wound(s) r grt toe: Wound Type: scabbed area r buttocks: Wound Type: Pressure Injury right lower leg/inner zapata/below knee: Wound Type: Stasis Ulcer right flank/open scratches/scabbed: Wound Type: Abrasion Suggestions for Active Care Change Position every (hours): 2 Times a day to sit in chair: 3 Therapies Physical Therapy: Eval and Treat Occupational Therapy: Eval and Treat Speech Therapy: Eval and Treat Problem/Diagnosis (1) Weakness: Status: Acute Allergies/Procedures Done in Hospital Allergies No Known Allergies Allergy (Verified 09/28/20 10:23) Procedures: 2-D Echocardiogram Type of Care/Length of Stay Estimated LOS: More Than 30 Days Type of Care Needed: Skilled Rehab Potential: Fair Prognosis: Fair Additional Orders/Day of Discharge H&P will serve as current which was dated: 09/28/20 Day of Discharge: 09/30/20 Discharge Plan Admission Admit Date/Time: 09/29/20 15:21 Primary Reason for Your Visit: Progressive Weakness Attending Provider: Roni Wilkins Primary Care Provider: Edgar Barger Instructions Additional Instructions / Restrictions: Patient has incontinent of urine, every 2 hour checks to avoid breakdown of skin. Apply Robinson wraps from the base of toes to below knees in a.m. until bedtime. Patient will require assistance during meals. Discharge Orders/Prescriptions Prescriptions: Continued bupropion HCl 300 mg tablet extended release 24 hr 300 mg PO DAILY RF: 0 buspirone 10 mg tablet 10 mg PO TID RF: 0 aspirin 81 MG tablet 81 mg PO DAILY@0800 RF: 0 finasteride 5 MG tablet 5 mg PO DAILY RF: 0 sertraline 50 MG tablet 50 mg PO DAILY RF: 0 multivitamin 1 EACH tablet 1 tab PO DAILY RF: 0 omeprazole 20 MG capsule,delayed release(DR/EC) 40 mg PO DAILY RF: 0 levothyroxine 200 MCG tablet 200 mcg PO DAILY RF: 0 cholecalciferol (vitamin D3) 25 MCG capsule 1,000 unit PO DAILY RF: 0 melatonin 10 MG tablet 10 mg PO QHS RF: 0 glimepiride 1 mg tablet 1 mg PO DAILY Qty: 0 RF: 0 polyethylene glycol 3350 17 gram Powder In Packet 17 g PO DAILY RF: 0 atorvastatin 10 mg Tablet 10 mg PO QHS RF: 0 hydrocodone-acetaminophen 5-325 mg Tablet 1 tab PO DAILY RF: 0 hydrocodone-acetaminophen 5-325 mg Tablet 1 tab PO Q8H PRN (Reason: Pain (Scale Score 4-6)) RF: 0 carbidopa-levodopa 10-100 mg Tablet 1 tab PO TID RF: 0 docusate sodium [Colace] 100 mg Capsule 100 mg PO DAILY RF: 0 pregabalin 100 mg Capsule 100 mg PO TID RF: 0 lisinopril 20 MG tablet 20 mg PO DAILY RF: 0 magnesium hydroxide [Milk of Magnesia] 400 mg/5 mL Suspension 400 mg PO DAILY PRN (Reason: Constipation) RF: 0 bisacodyl 10 mg Suppository 10 mg [place] DAILY PRN (Reason: Constipation) RF: 0 metoprolol succinate 100 mg tablet extended release 24 hr 100 mg PO DAILY RF: 0 Referrals / Follow Up: Edgar Barger MD [Primary Care Provider] - In 1 Week Alo Capellan MD [NON-STAFF] - In 1 Week (Next week as scheduled) Disposition Disposition (needs filled in before D/C Order can be placed): Intermediate Facility
--- NOTE | 2020-09-30 12:21 | PHA.DC.MR ---
Pharmacy Service has performed discharge medication reconciliation for this patient. The patient's discharge medication list was reviewed for discrepancies and discrepancies were resolved. Home Medications aspirin 81 mg PO DAILY@0800 06/18/13 finasteride 5 mg PO DAILY 01/11/15 bupropion HCl 300 mg 24 hr tablet, extended release 300 mg PO DAILY 11/04/17 sertraline 50 mg PO DAILY 04/06/19 buspirone 10 mg tablet 10 mg PO TID tab 12/03/19 metoprolol succinate 100 mg tablet,extended release 24 hr 100 mg PO DAILY tab 12/07/19 cholecalciferol (vitamin D3) 1,000 unit PO DAILY 05/03/20 levothyroxine 200 mcg PO DAILY 05/03/20 melatonin 10 mg PO QHS 05/03/20 multivitamin 1 tab PO DAILY 05/03/20 omeprazole 40 mg PO DAILY 05/03/20 glimepiride 1 mg PO DAILY #0 tab 05/07/20 atorvastatin 10 mg PO QHS 09/28/20 bisacodyl 10 mg SC DAILY PRN 09/28/20 carbidopa-levodopa 1 tab PO TID 09/28/20 docusate sodium [Colace] 100 mg PO DAILY 09/28/20 hydrocodone-acetaminophen 1 tab PO DAILY 09/28/20 hydrocodone-acetaminophen 1 tab PO Q8H PRN 09/28/20 lisinopril 20 mg PO DAILY 09/28/20 magnesium hydroxide [Milk of Magnesia] 400 mg PO DAILY PRN 09/28/20 polyethylene glycol 3350 17 g PO DAILY 09/28/20 pregabalin 100 mg PO TID 09/28/20
[2020-09-30 12:26] LABS: Bedside Glucose 257 mg/dL (70-110)
--- NOTE | 2020-09-30 12:31 | DS.PCM_ITS ---
Documented by User: Kitty Senior NP, DISTILLING DEPARTMENT SUPERVISOR-C 09/30/20 12:47 Providers Date of Admission: 09/29/20 Date of Discharge: 09/30/20 Primary Care Physician: Dr. Edgar Barger MD Reason For Visit: WEAKNESS Diagnosis Discharge Diagnosis (1) Weakness: Status: Acute Code(s): R53.1 - Weakness Medications at Discharge Home Medications aspirin 81 mg PO DAILY@0800 06/18/13 finasteride 5 mg PO DAILY 01/11/15 bupropion HCl 300 mg 24 hr tablet, extended release 300 mg PO DAILY 11/04/17 sertraline 50 mg PO DAILY 04/06/19 buspirone 10 mg tablet 10 mg PO TID tab 12/03/19 metoprolol succinate 100 mg tablet,extended release 24 hr 100 mg PO DAILY tab 12/07/19 cholecalciferol (vitamin D3) 1,000 unit PO DAILY 05/03/20 levothyroxine 200 mcg PO DAILY 05/03/20 melatonin 10 mg PO QHS 05/03/20 multivitamin 1 tab PO DAILY 05/03/20 omeprazole 40 mg PO DAILY 05/03/20 glimepiride 1 mg PO DAILY #0 tab 05/07/20 atorvastatin 10 mg PO QHS 09/28/20 bisacodyl 10 mg MA DAILY PRN 09/28/20 carbidopa-levodopa 1 tab PO TID 09/28/20 docusate sodium [Colace] 100 mg PO DAILY 09/28/20 hydrocodone-acetaminophen 1 tab PO DAILY 09/28/20 hydrocodone-acetaminophen 1 tab PO Q8H PRN 09/28/20 lisinopril 20 mg PO DAILY 09/28/20 magnesium hydroxide [Milk of Magnesia] 400 mg PO DAILY PRN 09/28/20 polyethylene glycol 3350 17 g PO DAILY 09/28/20 pregabalin 100 mg PO TID 09/28/20 Hospital Course Operations None Procedures 2-D Echocardiogram Summary of Care Provided Minutes Spent on Discharge: 35 Hospital Course: Patient is a 75-year-old male admitted 09/28/2020 due to progressive weakness. 1. Progressive weakness-CVA ruled out. MRI of brain, MRA of head and neck and lumbar spine MRI unremarkable. Echocardiogram completed, report pending. Carotid ultrasound with less than 50% stenosis bilaterally. Patient was recently started on Sinemet by SNF provider due to suspected Parkinson's. Patient has had significant decline in functional status over the past 2 weeks and is now having difficulty feeding himself, worsening upper extremity tremors and requiring X4 assist. PT/OT. MRI of thoracic and cervical spine completed, report pending at discharge and will follow up on any significant abnormalities. Initial SOC neurology consult recommended outpatient EMG and neurology follow- up. SOC neurology re-consulted via phone who recommended MRI of thoracic and cervical spine. Again, recommend EMG of lower extremities for further evaluation as outpatient. Patient has follow-up with neurology, Dr. Capellan next week. 2. History of aortic valve replacement 3. Hypertension-stable, continue metoprolol, lisinopril. 4. Hyperlipidemia-continue statin 5. Morbid obesity-encouraged diet and lifestyle modifications. 6. Depression/anxiety-on bupropion, BuSpar, sertraline. 7. Type 2 diabetes mellitus-continue oral regimen. Hemoglobin A1c 8.7%. Consider continued sliding scale insulin ACHS at [facility]. 8. Chronic lower extremity neuropathy-on pregabalin. 9. GERD-continue PPI. 10. Hypothyroidism-continue Synthroid. 11. BPH-on finasteride. Physical Exam Const alert, oriented x3 and no apparent distress Orientation / Consciousness: awake, oriented to person, oriented to place and oriented to time HEENT normocephalic and moist oral mucous membranes Eyes PERRL, EOMs intact bilaterally and conjunctivae normal Neck no lymphadenopathy Resp normal respiratory effort and clear to auscultation bilaterally Cardio regular rate, regular rhythm and no murmurs Peripheral Pulses: pulses 2+ throughout GI normal to inspection, nondistended, normoactive bowel sounds, non-tender and non-distended Extremity normal to inspection Skin no rashes or lesions noted Lesions: no lesions Rashes: no rashes Trauma: no lacerations or abrasions Neuro oriented x3 Neuro Narrative: Bilateral lower extremity weakness. Sensorium / Orientation: awake and alert Psych affect normal Patient seen and examined prior to discharge. Physical assessment as noted above. Patient is stable for discharge with follow up recommendations as noted above. This patient was seen by YAJAIRA Coburn under the supervision of Dr. Wilkins. ABG / Lab / Microbiology Data Result Diagrams: 09/29/20 05:55 09/29/20 05:55 Laboratory: Laboratory Results - last 24 hr 0509/29/20 09/30/20 16:25 22:52 07:01 POC Glucose 266 H 251 H 274 H 09/30/20 12:17 POC Glucose 257 H Radiography Diagnostic Testing: Radiology Impression Carotid Duplex 09/28/20 22:34 Interpretation Summary Heterogenous plaque at the proximal right internal carotid artery with less than 50% stenosis Less than 50% stenosis right external carotid artery Irregular plaque at the proximal left internal carotid artery with less than 50% stenosis Less than 50% stenosis left external carotid artery Patent and antegrade vertebral arteries bilaterally Ordering Physician: Judy Smith Performed By: Moiz Gonzales RVT Meaningful Use Info Meaningful Use Diagnoses (Choose all that apply): None applicable Discharge Plan Admission Admit Date/Time: 09/29/20 15:21 Primary Reason for Your Visit: Progressive Weakness Attending Provider: Roni Wilkins Primary Care Provider: Edgar Barger Instructions Additional Instructions / Restrictions: Patient has incontinent of urine, every 2 hour checks to avoid breakdown of skin. Apply Robinson wraps from the base of toes to below knees in a.m. until bedtime. Patient will require assistance during meals. Discharge Orders/Prescriptions Prescriptions: Continued bupropion HCl 300 mg tablet extended release 24 hr 300 mg PO DAILY RF: 0 buspirone 10 mg tablet 10 mg PO TID RF: 0 aspirin 81 MG tablet 81 mg PO DAILY@0800 RF: 0 finasteride 5 MG tablet 5 mg PO DAILY RF: 0 sertraline 50 MG tablet 50 mg PO DAILY RF: 0 multivitamin 1 EACH tablet 1 tab PO DAILY RF: 0 omeprazole 20 MG capsule,delayed release(DR/EC) 40 mg PO DAILY RF: 0 levothyroxine 200 MCG tablet 200 mcg PO DAILY RF: 0 cholecalciferol (vitamin D3) 25 MCG capsule 1,000 unit PO DAILY RF: 0 melatonin 10 MG tablet 10 mg PO QHS RF: 0 glimepiride 1 mg tablet 1 mg PO DAILY Qty: 0 RF: 0 polyethylene glycol 3350 17 gram Powder In Packet 17 g PO DAILY RF: 0 atorvastatin 10 mg Tablet 10 mg PO QHS RF: 0 hydrocodone-acetaminophen 5-325 mg Tablet 1 tab PO DAILY RF: 0 hydrocodone-acetaminophen 5-325 mg Tablet 1 tab PO Q8H PRN (Reason: Pain (Scale Score 4-6)) RF: 0 carbidopa-levodopa 10-100 mg Tablet 1 tab PO TID RF: 0 docusate sodium [Colace] 100 mg Capsule 100 mg PO DAILY RF: 0 pregabalin 100 mg Capsule 100 mg PO TID RF: 0 lisinopril 20 MG tablet 20 mg PO DAILY RF: 0 magnesium hydroxide [Milk of Magnesia] 400 mg/5 mL Suspension 400 mg PO DAILY PRN (Reason: Constipation) RF: 0 bisacodyl 10 mg Suppository 10 mg MA DAILY PRN (Reason: Constipation) RF: 0 metoprolol succinate 100 mg tablet extended release 24 hr 100 mg PO DAILY RF: 0 Referrals / Follow Up: Edgar Barger MD [Primary Care Provider] - In 1 Week Alo Capellan MD [NON-STAFF] - In 1 Week (Next week as scheduled) Disposition Disposition (needs filled in before D/C Order can be placed): [facility] Documented by User: Dr. Roni Wilkins MD 09/30/20 14:08 Providers Date of Admission: 09/29/20 Reason For Visit: WEAKNESS Medications at Discharge Home Medications aspirin 81 mg PO DAILY@0800 06/18/13 finasteride 5 mg PO DAILY 01/11/15 bupropion HCl 300 mg 24 hr tablet, extended release 300 mg PO DAILY 11/04/17 sertraline 50 mg PO DAILY 04/06/19 buspirone 10 mg tablet 10 mg PO TID tab 12/03/19 metoprolol succinate 100 mg tablet,extended release 24 hr 100 mg PO DAILY tab 12/07/19 cholecalciferol (vitamin D3) 1,000 unit PO DAILY 05/03/20 levothyroxine 200 mcg PO DAILY 05/03/20 melatonin 10 mg PO QHS 05/03/20 multivitamin 1 tab PO DAILY 05/03/20 omeprazole 40 mg PO DAILY 05/03/20 glimepiride 1 mg PO DAILY #0 tab 05/07/20 atorvastatin 10 mg PO QHS 09/28/20 bisacodyl 10 mg MA DAILY PRN 09/28/20 carbidopa-levodopa 1 tab PO TID 09/28/20 docusate sodium [Colace] 100 mg PO DAILY 09/28/20 hydrocodone-acetaminophen 1 tab PO DAILY 09/28/20 hydrocodone-acetaminophen 1 tab PO Q8H PRN 09/28/20 lisinopril 20 mg PO DAILY 09/28/20 magnesium hydroxide [Milk of Magnesia] 400 mg PO DAILY PRN 09/28/20 polyethylene glycol 3350 17 g PO DAILY 09/28/20 pregabalin 100 mg PO TID 09/28/20 Hospital Course Summary of Care Provided Hospital Course: This patient was seen in conjunction with AMADO Coburn .? I have independently interviewed and examined the patient and reviewed pertinent historical, laboratory, and other data.? Please refer to YAJAIRA Coburn? note for details of this patient's presentation, findings, and recommendations.? I have reviewed? YAJAIRA Coburn ? note and concur? with documented findings. In brief, patient is a patient is a 75-year-old gentleman [facility] sent to the ED with increasing weakness.? Patient reports months of lower extremity weakness which has worsened rapidly over the past 2 weeks Assessment:? 1.? Bilateral lower extremity weakness 2.? Essential hypertension 3.? Dyslipidemia 4.? Valvular heart disease with history of aortic valve replacement 5.? Morbid obesity with BMI of 42.5 6.? Diabetes mellitus type 2 7.? Hypothyroidism 8.? BPH 9.? Depression with anxiety 10.? GERD 11.? DVT prophylaxis Hospital course: As documented above ABG / Lab / Microbiology Data Result Diagrams: 09/29/20 05:55 09/29/20 05:55 Discharge Plan Admission Admit Date/Time: 09/29/20 15:21 Primary Reason for Your Visit: Progressive Weakness Attending Provider: Roni Wilkins Primary Care Provider: Edgar Barger Instructions Additional Instructions / Restrictions: Patient has incontinent of urine, every 2 hour checks to avoid breakdown of skin. Apply Robinson wraps from the base of toes to below knees in a.m. until bedtime. Patient will require assistance during meals. Discharge Orders/Prescriptions Prescriptions: Continued bupropion HCl 300 mg tablet extended release 24 hr 300 mg PO DAILY RF: 0 buspirone 10 mg tablet 10 mg PO TID RF: 0 aspirin 81 MG tablet 81 mg PO DAILY@0800 RF: 0 finasteride 5 MG tablet 5 mg PO DAILY RF: 0 sertraline 50 MG tablet 50 mg PO DAILY RF: 0 multivitamin 1 EACH tablet 1 tab PO DAILY RF: 0 omeprazole 20 MG capsule,delayed release(DR/EC) 40 mg PO DAILY RF: 0 levothyroxine 200 MCG tablet 200 mcg PO DAILY RF: 0 cholecalciferol (vitamin D3) 25 MCG capsule 1,000 unit PO DAILY RF: 0 melatonin 10 MG tablet 10 mg PO QHS RF: 0 glimepiride 1 mg tablet 1 mg PO DAILY Qty: 0 RF: 0 polyethylene glycol 3350 17 gram Powder In Packet 17 g PO DAILY RF: 0 atorvastatin 10 mg Tablet 10 mg PO QHS RF: 0 hydrocodone-acetaminophen 5-325 mg Tablet 1 tab PO DAILY RF: 0 hydrocodone-acetaminophen 5-325 mg Tablet 1 tab PO Q8H PRN (Reason: Pain (Scale Score 4-6)) RF: 0 carbidopa-levodopa 10-100 mg Tablet 1 tab PO TID RF: 0 docusate sodium [Colace] 100 mg Capsule 100 mg PO DAILY RF: 0 pregabalin 100 mg Capsule 100 mg PO TID RF: 0 lisinopril 20 MG tablet 20 mg PO DAILY RF: 0 magnesium hydroxide [Milk of Magnesia] 400 mg/5 mL Suspension 400 mg PO DAILY PRN (Reason: Constipation) RF: 0 bisacodyl 10 mg Suppository 10 mg MA DAILY PRN (Reason: Constipation) RF: 0 metoprolol succinate 100 mg tablet extended release 24 hr 100 mg PO DAILY RF: 0 Referrals / Follow Up: Edgar Barger MD [Primary Care Provider] - In 1 Week Alo Capellan MD [NON-STAFF] - In 1 Week (Next week as scheduled) Disposition Disposition (needs filled in before D/C Order can be placed): [facility] Facility Visit Charges Inpatient E&M: 16998 Disch Hosp
--- NOTE | 2020-09-30 12:39 | CASEMGMT ---
Patient will be discharged back to [facility] today. FRANSISCO called Janna at [facility] and left her a voice mail letting her know this information. Ellyn JONES
--- NOTE | 2020-09-30 13:19 | CASEMGMT ---
Patient is ready for discharge back to [facility] today. FRANSISCO faxed orders. He won't be able to leave today until he has more testing. FRANSISCO did let Radha know this. Plan: d/c back to [facility] under skilled level of care. Ellyn Stephenson [employer]
--- NOTE | 2020-09-30 13:21 | CASEMGMT ---
SW did not complete a PHQ9 as patient did not have a Stroke or TIA. Ellyn JONES
[2020-09-30] MEDS: LORazepam 2 MG/ML Syringe 1 MG IV (13:58)
--- NOTE | 2020-09-30 15:29 | CASEMGMT ---
FRANSISCO faxed negative COVID test to [facility]. FRANSISCO also wrote on fax face sheet that patient is being picked up at 530. FRANSISCO also called and let the receptionsist know this information. RN and secretary board of commissioners were also notified. Patient was not back in his room yet. Plan: d/c back to [facility] under skilled level of care. [facility] transported him via cot. Ellyn JONES
[2020-09-30] MEDS: HYDROcodone Bitartrate/Apap 5/325 Tablet PO (15:43)
== END 2020-09-30 17:58 | disposition skilled nursing facility (03) | DRG 948 ==
LOC: ED 14:25 → MS3 16:52 → PCU 09-29 06:28
PROVIDERS: Family Medicine; Admitting Provider Student in an Organized Health Care Education/Training Program; Emergency Provider Emergency Medicine; PCP Family Medicine; Visit Provider Internal Medicine
DX: R53.1 Weakness (principal); Z68.41 Body mass index [BMI] 40.0-44.9, adult; Z95.2 Presence of prosthetic heart valve; I10 Essential (primary) hypertension; E78.5 Hyperlipidemia, unspecified; E66.01 Morbid (severe) obesity due to excess calories; F32.9 Major depressive disorder, single episode, unspecified; F41.9 Anxiety disorder, unspecified; E11.43 Type 2 diabetes mellitus with diabetic autonomic (poly)neuropathy; K21.9 Gastro-esophageal reflux disease without esophagitis; E03.9 Hypothyroidism, unspecified; N40.0 Benign prostatic hyperplasia without lower urinary tract symptoms; Z79.899 Other long term (current) drug therapy; R53.81 Other malaise; Z66 Do not resuscitate
CPT/HCPCS: 36415; 70450; 70544; 70551; 72141; 72146; 72148; 80048; 80061; 80076; 81001; 82550; 82962; 83036; 83735; 84443; 85025; 87426; 92611; 93005; 93306; 93880; 94762; 97110; 97162; 97167; 97530; 97535; 99285; J7030; Q9957; A4216; C8929

== ENCOUNTER → 2020-11-09 12:54 | Emergency (ER) | payer MEDICARE, OTHER, SELFPAY ==
[2020-09-28 16:04] VITALS: BMI 42.5
[2020-11-09 12:54] VITALS: PULSE 101; RESP 19; TEMP 35.2; O2SAT 81; BMI 43.0
--- NOTE | 2020-11-09 12:54 | CM.ED ---
SOCIAL WORK STEMI Alert Responded to STEMI alert. Patient from [facility]. Call to [facility] to inquire if family has been contacted. Nurse reports has left messages and awaiting return phone call. This worker to attempt to make contact with family. En Reyes, SHIPPING AND RECEIVING SUPERVISOR, DYE STAND LOADER
--- NOTE | 2020-11-09 12:59 | CM.ED ---
SOCIAL WORK Call to patient's next of kin/brother, Justin Younger. No answer, left message requesting returned phone call. En Reyes
--- NOTE | 2020-11-09 13:03 | CM.ED ---
SOCIAL WORK Patient . This worker made contact with patient's HPOA, Jaylin Hickman. Call facilitated to Dr. Del Castillo. Emotional support provided over the phone. Nursing updated with contact information. . [place]. ARINA Reyes, CLINICAL MARKETING MANAGER
--- NOTE | 2020-11-09 13:04 | EX.ED.DYSGE1 ---
HPI History of Present Illness Chief Complaint: Chest Pain Informant: EMS Onset/Context/Timing Onset: Today Narrative Narrative: Patient brought in via EMS secondary to shortness of breath. 2 prehospital EKGs revealed anterior ST elevation. We were notified on the squad phone that the patient was a DNR comfort care. On arrival to the emergency room EMS staff states that he was talking with him up to the point of arriving to the hospital. Patient had decreased mental status on arrival to the hospital. I am handed paperwork from the snf on their arrival and patient is a DNR Comfort Care arrest. Patient is on a nonrebreather satting in the 80s. Faint pulses only felt occasionally. Bedside ultrasound reveals some cardiac motion. I attempted to contact the POA to see if patient would want intubation or not. I was unable to reach them and had to leave a message. I went back preparing to intubate the patient when staff states that they had lost a pulse. Patient did go to asystole on the monitor with occasional, rare junctional beats. Bedside ultrasound reveals cessation of any cardiac activity. [facility] Medical History BiPAP (biphasic positive airway pressure) dependence BPH (benign prostatic hyperplasia) Chest pain Chronic pain Congestive heart failure COVID-19 (04/30/20) Depression Essential (primary) hypertension GERD (gastroesophageal reflux disease) History of anxiety HTN (hypertension) Hyperlipidemia Hypothyroidism Lower extremity edema Lower extremity weakness Morbid obesity Non-rheumatic aortic stenosis Obstructive sleep apnea Osteoarthritis Peripheral autonomic neuropathy Postural hypotension Sleep apnea Stomatitis Type 2 diabetes mellitus Unable to ambulate Home Medications aspirin 81 mg PO DAILY@0800 06/18/13 [History Last Taken 09/28/20] finasteride 5 mg PO DAILY 01/11/15 [History Last Taken 09/28/20] bupropion HCl 300 mg 24 hr tablet, extended release 300 mg PO DAILY 11/04/17 [History Last Taken 09/28/20] sertraline 50 mg PO DAILY 04/06/19 [History Last Taken 09/28/20] buspirone 10 mg tablet 10 mg PO TID tab 12/03/19 [History Last Taken 09/28/20] metoprolol succinate 100 mg tablet,extended release 24 hr 100 mg PO DAILY tab 12/07/19 [History Last Taken 09/28/20] cholecalciferol (vitamin D3) 1,000 unit PO DAILY 05/03/20 [History Last Taken 09/28/20] levothyroxine 200 mcg PO DAILY 05/03/20 [History Last Taken 09/28/20] melatonin 10 mg PO QHS 05/03/20 [History Last Taken 09/27/20] multivitamin 1 tab PO DAILY 05/03/20 [History Last Taken 09/28/20] omeprazole 40 mg PO DAILY 05/03/20 [History Last Taken 09/28/20] glimepiride 1 mg PO DAILY #0 tab 05/07/20 [Rx Last Taken 09/28/20] atorvastatin 10 mg PO QHS 09/28/20 [History Last Taken 09/27/20] bisacodyl 10 mg OK DAILY PRN 09/28/20 [History Last Taken Unknown] carbidopa-levodopa 1 tab PO TID 09/28/20 [History Last Taken 09/28/20] docusate sodium [Colace] 100 mg PO DAILY 09/28/20 [History Last Taken 09/28/20] hydrocodone-acetaminophen 1 tab PO DAILY 09/28/20 [History Last Taken 09/28/20] hydrocodone-acetaminophen 1 tab PO Q8H PRN 09/28/20 [History Last Taken 09/25/20] lisinopril 20 mg PO DAILY 09/28/20 [History Last Taken 09/28/20] magnesium hydroxide [Milk of Magnesia] 400 mg PO DAILY PRN 09/28/20 [History Last Taken Unknown] polyethylene glycol 3350 17 g PO DAILY 09/28/20 [History Last Taken 09/28/20] pregabalin 100 mg PO TID 09/28/20 [History Last Taken 09/28/20] Allergy/AdvReac Type Severity Reaction Status Date / Time No Known Allergies Allergy Verified 09/28/20 10:23 Family History Father Colon cancer Brother CAD (coronary artery disease) Diabetes Sister Diabetes Mother Heart disease Surgical History Ankle fracture, right H/O aortic valve replacement (07/28/18) H/O prosthetic heart valve History of carpal tunnel release History of open reduction and internal fixation (ORIF) procedure History of prostate surgery History of right and left heart catheterization (11/29/17) Social History Smoking Status: Unknown if ever smoked ROS ROS ED Review of Systems ROS Unobtainable: due to mental status EXAM Physical Exam Const Vital Signs: 11/09/20 12:54 Temperature 95.4 F L Temperature Source Temporal Pulse Rate 101 H Respiratory Rate 19 H Pulse Ox 81 Oxygen Delivery Method Nasal Cannula Positive obese Nutritional Appearance: obese HEENT Negative for trauma Chest Wall inspection of chest normal and palpation of chest normal Resp Resp Narrative: Minimal respiratory effort. Cardio Rate: other Other Details: Faint pulses occasionally felt at both the groin and neck. Extremity Extremity Narrative: No obvious trauma. Neuro Neuro Narrative: Patient unresponsive. GCS equals 3. MDM MDM EKG Initial EKG: Attestation: I personally reviewed and interpreted this EKG as follows: Interpretation: - (Sinus versus junctional rhythm with a ventricular rate of 117. Right bundle branch block pattern noted with elevation and 3, V2, V1.) Treatment and Re-Evaluation Comments:: Repeat EKG obtained on arrival. This actually looks improved when compared to prehospital EKGs. As previously stated in the HPI, patient was unresponsive on arrival with agonal respirations and faint, intermittent pulse. Patient has documentation present for DNR CCA. I was unable to reach however bicycle ii assembler to determine whether he would or would not want intubation. As I was preparing to intubate patient lost his pulse and went into asystole. He then had only random, junctional beats. Bedside ultrasound revealed no significant cardiac motion. Patient was pronounced at 1300. Power of bicycle ii assembler did call back and was notified of the patient's . Critical Care Time Critical Care Time: Yes Critical care time (excluding procedures): - (20 minutes) Discharge Plan Triage Chief Complaint: Chest Pain ED Provider: Olga Lidia Del Castillo Dx/Rx/DC Orders Clinical Impression: Cardiac arrest Prescriptions: No Action bupropion HCl 300 mg tablet extended release 24 hr 300 mg PO DAILY RF: 0 buspirone 10 mg tablet 10 mg PO TID RF: 0 aspirin 81 MG tablet 81 mg PO DAILY@0800 RF: 0 finasteride 5 MG tablet 5 mg PO DAILY RF: 0 sertraline 50 MG tablet 50 mg PO DAILY RF: 0 multivitamin 1 EACH tablet 1 tab PO DAILY RF: 0 omeprazole 20 MG capsule,delayed release(DR/EC) 40 mg PO DAILY RF: 0 levothyroxine 200 MCG tablet 200 mcg PO DAILY RF: 0 cholecalciferol (vitamin D3) 25 MCG capsule 1,000 unit PO DAILY RF: 0 melatonin 10 MG tablet 10 mg PO QHS RF: 0 glimepiride 1 mg tablet 1 mg PO DAILY Qty: 0 RF: 0 polyethylene glycol 3350 17 gram Powder In Packet 17 g PO DAILY RF: 0 atorvastatin 10 mg Tablet 10 mg PO QHS RF: 0 hydrocodone-acetaminophen 5-325 mg Tablet 1 tab PO DAILY RF: 0 hydrocodone-acetaminophen 5-325 mg Tablet 1 tab PO Q8H PRN (Reason: Pain (Scale Score 4-6)) RF: 0 carbidopa-levodopa 10-100 mg Tablet 1 tab PO TID RF: 0 docusate sodium [Colace] 100 mg Capsule 100 mg PO DAILY RF: 0 pregabalin 100 mg Capsule 100 mg PO TID RF: 0 lisinopril 20 MG tablet 20 mg PO DAILY RF: 0 magnesium hydroxide [Milk of Magnesia] 400 mg/5 mL Suspension 400 mg PO DAILY PRN (Reason: Constipation) RF: 0 bisacodyl 10 mg Suppository 10 mg OK DAILY PRN (Reason: Constipation) RF: 0 metoprolol succinate 100 mg tablet extended release 24 hr 100 mg PO DAILY RF: 0 Primary Care Provider: Edgar Barger Referrals: Edgar Barger MD [Primary Care Provider] - Disposition Disposition:
--- NOTE | 2020-11-09 13:06 | ED.RN ---
PT ARRIVED VIA EMS. STEMI WAS CALLED, EMS STATES CARDIAC RHYTHM CHANGED ENROUTE AND SENT ANOTHER EKG. EMS STATED THEY WERE COMING UP THE RAMP TO THE HOSPITAL PT STOPPED TALKING TO THEM. PT IS A DNRCCA AND EMS HAD PAPERWORK IN HAND. UPON ENTERING THE ER PT WAS SYNOTIC WITH ANGINAL RESPIRATIONS, OCCASIONAL FAINT PULSE. DR ANNA AT BEDSIDE. CARDIAC ACTIVITY NOTED ON ULTRASOUND, PREPARING TO INTUBATE. DURING THIS PROCESS PT STOPPED BREATHING ON HIS OWN AND PULSE DECREASED. CARDIAC RHYTHM IS NOW ASYSTOLE WITH A JUNCTIONAL RHYTHM AND NO PULSE PRESENT. CARDIAC ULTRASOUND PERFORMED WITH NO ACTIVITY NOTED. TIME OF 1300
--- NOTE | 2020-11-09 14:10 | CHAPLAIN ---
Type of Pastoral Visit ___ Initial Visit ___ Follow-up Visit ___ On-call Visit ___ General Patient Visit ___ Spiritual Assessment ___ Family Conference ___ Bereavement _x__ Rapid Response ___ Code Blue ___ Other (describe below) Pastoral Care Referral From ___ Patient ___ Family ___ Nurse ___ Physician ___ Fabrication Machine Operator ___ Spreader Operator _x__ Other (describe below) Sacrament/Intervention ___ Active listening ___ Anointing ___ Mu-Ism ___ Bereavement ___ Communion ___ Rebekah exploration ___ ___ Life review ___ Prayer ___ Reconciliation ___ Sacrament of Sick _x__ Supportive presence ___ Wedding ___ Other (describe below) Pastoral Comments came to ED for Stemi alert; pt was just brought in and had lost pulse in squad car; medical team attended to pt; pt ; no family was present; SW made calls to contact family; no family would be coming to ED;
--- NOTE | 2020-11-09 14:56 | ED.RN ---
PT DID NOT RECEIVE ANY IV FLUIDS THROUGHOUT THIS PROCESS
[2020-11-09 15:30] VITALS: PULSE 0; RESP 0
--- NOTE | 2020-11-09 15:31 | ED.RN ---
Patient in gown and disposable brief. He has a gold colored ring with blue jewel on right hand. Rest of belongings are in a bag and tagged with sticker, on top of bag. Awaiting office machine service supervisor to take patient to [facility].
== END ==
PROVIDERS: Emergency Provider Emergency Medicine; PCP Family Medicine
DX: I46.9 Cardiac arrest, cause unspecified (principal); Z66 Do not resuscitate; E66.01 Morbid (severe) obesity due to excess calories; K21.9 Gastro-esophageal reflux disease without esophagitis; E78.5 Hyperlipidemia, unspecified; E03.9 Hypothyroidism, unspecified; M19.90 Unspecified osteoarthritis, unspecified site; E11.9 Type 2 diabetes mellitus without complications; I11.0 Hypertensive heart disease with heart failure; I50.9 Heart failure, unspecified; F32.9 Major depressive disorder, single episode, unspecified; F41.9 Anxiety disorder, unspecified; Z79.899 Other long term (current) drug therapy
CPT/HCPCS: 99251; 99281; A4216; G0463